=== PATIENT | male | born 1955 | race Caucasian/White ===

== ENCOUNTER 2017-01-11 07:07 | Outpatient (CLI) | payer MEDICARE ==
[~2017-01-11] VITALS: Ht 162.6 cm; Wt 75.5 kg
--- NOTE | ~2017-01-11 | HEMODYNAMI ---
PATIENT:JAMES FELTON MEDICAL RECORD: [id number] : 55 LOCATION:[facility] ADMISSION DATE: 01/11/17 Generatedon:01/11/201710:43 Patient name: JAMES FELTON Patient #: [id number] SSN: : 1955 Date of study: 01/11/2017 Page: Of Hemodynamic Procedure Report Patient Data Patient Demographics Procedure consent was obtained First Name: JAMES Gender: Male Last Name: PURNIMA : 1955 [facility] Initial: F Age: 61 year(s) Patient #: [id number] Race: Unknown Additional ID: [id number] Contact details Address: [address] [place] [address] lane State: [place] City: [place] Zip code: [address] Past Medical History Allergies: No known allergies Admission Admission Data Admission Date: 01/11/2017 Admission Time: 7:07 Admit Source: Other Lab Results Lab Result Date: 01/11/2017 Lab Result Time: 7:35 Biochemistry Name Units Result Min Max BUN mg/dl 17 --(---*)-- 7 18 Creatinine mg/dl 1.2 --(---*)-- 0.6 1.3 CBC Name Units Result Min Max Hematocrit % 48.1 --(--*-)-- 42 54 Hemoglobin g/dl 17 --(---*)-- 13.5 17.5 Procedure Procedure Types Cath Procedure Diagnostic Procedure C [facility] w/Coronaries PCI Procedure Coronary Stent Initial Miscellaneous Procedures Moderate Sedation up to 45 minutes Procedure Description Procedure Date Procedure Date: 01/11/2017 Procedure Start Time: 9:55 Procedure End Time: 10:43 Procedure Staff Name Function Titi Crowley MD Performing Physician Annalise Aguilar RT Scrub Danny Waldron RN Nurse Sukumar Julian RT Monitor Procedure Data Cath Procedure Fluoroscopy Diagnostic fluoroscopy Total fluoroscopy Time: time: 14.1 min 14.1 min Diagnostic fluoroscopy Total fluoroscopy dose: dose: 1450 mGy 1450 mGy Contrast Material Contrast Material Type Amount (ml) Isovue 300 166 Entry Location Entry Primary Successful Side Size Upsize Upsize Entry Closure Delaney ccessful Closure Location (Fr) 1 (Fr) 2 (Fr) Remarks Device Remarks Radial Right 6 Fr Mechanical artery Short Compression Estimated blood loss: 10 ml Diagnostic catheters Device Type Used For End Catheter Placement Terumo 5Fr Jose 110cm Procedure catheter Procedure Complications No complications Procedure Medications Medication Administration Route Dosage Oxygen NC 2 l/min Lidocaine 2% added to field 20 Heparin Flush Bag added to field 2 bags (1000units/500ml NS) 0.9% NaCl I.V. 100 ml/hr Versed I.V. 1 mg Fentanyl I.V. 50 mcg Versed I.V. 1 mg Fentanyl I.V. 50 mcg Radial Cocktail I.A. 1 syringe (Verapomil 2mg/Nitro 400mcg/Heparin 1500units) Fentanyl I.V. 50 mcg Heparin Bolus I.V. 7500 units Fentanyl I.V. 50 mcg Versed I.V. 0.5 mg Versed I.V. 0.5 mg Nitroglycerin IC/IA I.C. 100 mcg Plavix P.O. 600 mg Hemodynamics Rest HGB: 17 (g/dl) Heart Rate: 69 (bpm) Pressure Samples Time Site Value (mmHg) Purpose Heart Use Rate(bpm) 9:57 LV 108/-4,5 Snapshot 82 9:58 AO 103/66(84) Pullback 67 9:58 LV 112/-6,3 Pullback 67 Gradients Valve Time Site 1 Site 2 Mean SEP/DFP Peak To Heart Use (mmHg) (sec/min) Peak Rate (mmHg) (bpm) Aortic 9:58 LV AO 11 5 9 67 112/-6,3 103/66(84) Calculations Valve P-P Mean Valve Index Valve Source Name Gradient Area Flow (cm2) Aortic 9 11 9 11 Snapshots Pre Cath Intra NCS Post Cath Vital Signs Time Heart Resp SPO2 etCO2 II2qozr NIBP (mmHg) Rhythm Pain Sedation Rate (ipm) (%) (mmHg) (mmHg) Status Level (bpm) 9:48:42 72 14 95 0 0 115/82(106) NSR 0 (11) 10(A) , No pain 9:52:48 68 17 97 0 0 122/77(106) NSR 0 (11) 10(A) , No pain 9:56:57 67 15 98 0 0 112/75(96) NSR 0 (11) 10(A) , No pain 10:01:09 79 16 96 0 0 106/73(84) NSR 0 (11) 9(A) , No pain 10:05:11 75 16 97 0 0 115/76(98) NSR 0 (11) 9(A) , No pain 10:09:19 73 15 97 0 0 110/70(89) NSR 0 (11) 9(A) , No pain 10:13:27 72 15 98 0 0 103/63(81) NSR 0 (11) 9(A) , No pain 10:17:28 73 16 97 0 0 106/75(94) NSR 0 (11) 9(A) , No pain 10:21:34 73 16 97 0 0 112/65(96) NSR 0 (11) 9(A) , No pain 10:25:40 74 15 97 0 0 121/73(90) NSR 0 (11) 9(A) , No pain 10:29:50 73 15 97 0 0 115/70(98) NSR 0 (11) 9(A) , No pain 10:33:56 74 14 96 0 0 122/74(103) NSR 0 (11) 9(A) , No pain 10:38:01 72 16 95 0 0 109/83(102) NSR 0 (11) 9(A) , No pain 10:42:03 73 16 95 0 0 115/80(108) NSR 0 (11) 10(A) , No pain Medications Time Medication Route Dose Verified Delivered Reason Note s Effectiveness by by 9:42:21 Oxygen NC 2 l/min Titi Buffie used for Jose Waldron RN procedure 9:42:29 Lidocaine 2% added 20ml Titi Titi for local to vial Jose Crowley MD anesthetic field 9:42:36 Heparin Flush added 2 bags Titi Titi used for Bag to Jose Crowley MD procedure (1000units/500ml field NS) 9:42:44 0.9% NaCl I.V. 100 Titi Buffie Per physician ml/hr Jose Waldron RN 9:51:55 Versed I.V. 1 mg Titi Buffie for sedation Jose Waldron RN 9:52:01 Fentanyl I.V. 50 mcg Titi Buffie for sedation Jose Waldron RN 9:54:58 Versed I.V. 1 mg Titi Buffie for sedation Jose Waldron RN 9:55:02 Fentanyl I.V. 50 mcg Titi Buffie for sedation Jose Waldron RN 9:56:42 Radial Cocktail I.A. 1 Titi Titi for (Verapomil syringe Jose Crowley MD vasodilation 2mg/Nitro 400mcg/Heparin 1500units) 10:04:05 Fentanyl I.V. 50 mcg Titi Buffie for sedation Jose Waldron RN 10:04:50 Heparin Bolus I.V. 7500 Titi Buffie for veri fied units Jose Waldron RN anticoagulation with dr crowley 10:08:58 Fentanyl I.V. 50 mcg Titi Buffie for sedation Jose Waldron RN 10:18:29 Versed I.V. 0.5 mg Titi Buffie for sedation Jose Waldron RN 10:27:03 Versed I.V. 0.5 mg Titi Buffie for sedation Jose Waldron RN 10:35:36 Nitroglycerin I.C. 100 mcg Titi Titi for IC/IA Jose Crowley MD vasodilation 10:42:49 Plavix P.O. 600 mg Titi Buffie for Jose Waldron RN antiplatelet therapy Procedure Log Time Note 9:15:17 Danny Waldron RN sent for patient. Start room use. 9:34:31 Informed consent obtained and on chart 9:34:37 Admit Source: Other 9:35:14 Diagnostic Cath status Elective 9:35:22 Time tracking: Regular hours 9:35:27 Plan of Care:Hemodynamics will remain stable., Cardiac rhythm will remain stable., Comfort level will be maintained., Respiratory function will remain adequate., Patient/ family verbilizes understanding of procedure., Procedure tolerated without complication., Recovers from procedure without complications.. 9:35:48 Patient received from Pre/Post Procedure Room to CCL 1 Alert and oriented. Tansferred to table in Supine position. 9:35:49 Warm blankets applied, and yolanda hugger turned on for patient comfort. 9:35:50 Correct patient and procedure confirmed by team. 9:36:08 H&P Date Dictated: 01/05/2017 Within 30 days and on chart., H&P Addendum completed by physician on day of procedure. (MUST COMPLETE FOR ALL OUTPATIENTS). 9:42:21 Oxygen 2 l/min NC was administered by Danny Waldron RN; used for procedure; 9:42:29 Lidocaine 2% 20ml vial added to field was administered by Titi Crowley MD; for local anesthetic; 9:42:36 Heparin Flush Bag (1000units/500ml NS) 2 bags added to field was administered by Titi Crowley MD; used for procedure; 9:42:44 0.9% NaCl 100 ml/hr I.V. was administered by Danny Waldron RN; Per physician; 9:47:37 ECG and BP/O2 sat monitors applied to patient. 9:47:38 Vital chart was started 9:47:42 Baseline sample Acquired. 9:47:47 Rhythm: sinus rhythm 9:47:49 Full Disclosure recording started 9:47:50 Pre-procedure instructions explained to patient. 9:47:50 Pre-op teaching completed and patient verbalized understanding. 9:47:52 Family in patients room. 9:47:54 Patient NPO since Midnight. 9:48:00 Patient allergic to No known allergies 9:48:02 Is the patient allergic to Iodine/contrast media? No. 9:48:03 Is patient on blood thinner?No 9:48:04 Patient diabetic? No. 9:48:07 Previous problem with sedation/anesthesia? No ? 9:48:08 Snore? Yes 9:48:10 Sleep apnea? No 9:48:11 Deviated septum? No 9:48:12 Opens mouth fully? Yes 9:48:13 Sticks out tongue? Yes 9:48:16 Airway obstruction? Yes copd 9:48:22 Dentures? Yes out 9:48:25 Modified Wiley's test Ulnar < 7 seconds 9:48:27 Patient pain scale 0/10 ?. 9:48:39 IV patent on arrival in left wrist with 0.9% NaCl at [facility]. 9:49:49 Lab Result : BUN 17 mg/dl 9:49:49 Lab Result : Hemoglobin 17 g/dl 9:49:49 Lab Result : Creatinine 1.2 mg/dl 9:49:49 Lab Result : Hematocrit 48.1 % 9:49:52 Lab results completed and on chart. 9:49:54 Right Radial & Right Groin area was prepped with chlora-prep and draped in sterile fashion 9:49:55 Alarms reviewed by R. N. 9:49:56 Sharps counted by scrub and verified by R.N. 9:49:59 Use device set Radial Dx 9:50:00 MBrace Wrist Support opened to sterile field. 9:50:00 Tegaderm 4 x 4 opened to sterile field. 9:50:01 Acist Manifold opened to sterile field. 9:50:02 Acist Hand Control opened to sterile field. 9:50:03 Acist Syringe opened to sterile field. 9:50:03 Medline Cath Pack opened to sterile field. 9:50:04 Bag Decanter opened to sterile field. 9:50:04 Terumo 6Fr Slender Glidesheath opened to sterile field. 9:50:05 St Tyrel 260cm J .035 wire opened to sterile field. 9:50:11 Physician arrived 9:50:11 --------ALL STOP TIME OUT------ 9:50:12 Final Timeout: patient, procedure, and site verified with staff and physician. All members of the team are in agreement. 9:50:13 Right Radial & Right Groin site verified by team. 9:50:16 Physical assessment completed. ASA score P 2 - A patient with mild systemic disease as per Titi Crowley MD. 9:50:18 Sedation plan: IV Moderate Sedation Versed, Fentanyl 9:51:55 Versed 1 mg I.V. was administered by Danny Waldron RN; for sedation; 9:52:01 Fentanyl 50 mcg I.V. was administered by Danny Waldron RN; for sedation; 9:52:34 Cook 21G 4cm Radial Needle opened to sterile field. 9:54:58 Versed 1 mg I.V. was administered by Danny Waldron RN; for sedation; 9:55:02 Fentanyl 50 mcg I.V. was administered by Danny Waldron RN; for sedation; 9:55:35 Procedure started. 9:55:48 Local anesthetic to right radial artery with Lidocaine 2% by Titi Crowley MD.INITIAL ACCESS ONLY 9:56:31 A 6 Fr Short sheath was inserted into the Right Radial artery 9:56:33 Zero performed for pressure channel P1 9:56:36 Zero performed for pressure channel P1 9:56:42 Radial Cocktail (Verapomil 2mg/Nitro 400mcg/Heparin 1500units) 1 syringe I.A. was administered by Titi Crowley MD; for vasodilation; 9:57:00 A Terumo 5Fr Jose 110cm catheter was advanced over the wire and used for Procedure. 9:57:46 LV gram done using REYES 9:57:48 Injector settings: Ml/sec: 5, Volume: 15, 9:57:54 EF : 55 % 9:58:31 LV hemodynamics recorded. 9:58:50 RCA angiography performed. 9:59:45 LCA angiography performed. 10:00:26 Terumo TR Band Standard opened to sterile field. 10:01:28 Catheter removed. 10:01:48 Merit BasixCompak Inflation Kit opened to sterile field. 10:01:49 High Pressure Extension Tubing (Joes) opened to sterile field. 10:01:49 [place] Sci Luge Straight 300cm 0.014 guide wire opened to sterile field. 10:01:50 Medtronic Launcher 6Fr AR 1.0 guide catheter opened to sterile field. 10:01:58 6 Fr AR 1 guide catheter was inserted over the wire 10:04:05 Fentanyl 50 mcg I.V. was administered by Danny Waldron RN; for sedation; 10:04:47 luge wire advanced. 10:04:50 Heparin Bolus 7500 units I.V. was administered by Danny Waldron RN; for anticoagulation; verified with dr crowley 10:08:58 Fentanyl 50 mcg I.V. was administered by Danny Waldron RN; for sedation; 10:13:04 Wire advanced across lesion. 10:16:25 Wire removed. 10:16:33 Guide Catheter removed. unable to get back-up support 10:16:49 Medtronic Launcher 6Fr 3DRIGHT guide catheter opened to sterile field. 10:17:02 6 Fr 3D RIGHT guide catheter was inserted over the wire 10:18:29 Versed 0.5 mg I.V. was administered by Danny Waldron RN; for sedation; 10:20:29 [place] Sci Luge Straight 300cm 0.014 guide wire opened to sterile field. 10:20:36 luge wire advanced. 10:21:28 Wire advanced across lesion. 10:23:39 Inflation Number: 1 A Medtronic Integrity 2.5 X 18 stent was prepped and advanced across the Dist RCA. The stent was deployed at 14 ALEXYS for 0:10 (min:sec). 10:25:48 Stent catheter was removed intact over wire. 10:27:03 Versed 0.5 mg I.V. was administered by Danny Waldron RN; for sedation; 10:33:52 Inflation Number: 1 A Medtronic Integrity 3.0 X 26 stent was prepped and advanced across the Mid RCA. The stent was deployed at 12 ALEXYS for 0:10 (min:sec). 10:35:36 Nitroglycerin IC/IA 100 mcg I.C. was administered by Titi Crowley MD; for vasodilation; 10:38:10 Stent catheter was removed intact over wire. 10:38:11 Wire removed. 10:38:11 Guide catheter removed. 10:39:09 Sheath removed intact; hemostasis achieved with Mechanical Compression to the Right Radial artery. 10:39:11 Procedure ended.(Physican Out) 10:40:48 Fluoroscopy time 14.10 minutes. 10:40:55 Contrast amount:Isovue 300 166ml. 10:40:59 Fluoroscopy dose: 1450 mGy 10:40:59 Flurop Dose total: 1450 10:41:01 Sharps counted by scrub and verified by R.N. 10:41:03 TR band inflated with 10cc of air. 10:41:05 Insertion/operative site no bleeding no hematoma. 10:41:13 Post right radial artery:stable, soft, clean and dry 10:41:14 Post Procedure Pulses reassessed and unchanged 10:41:16 Post-procedure physical assessment completed. ASA score P 2 - A patient with mild systemic disease as per Titi Crowley MD. 10:41:18 Post procedure rhythm: unchanged. 10:41:23 Estimated blood loss: 10 ml 10:41:24 Post procedure instruction explained to patient.Patient verbalizes understanding. 10:41:43 Procedure type changed to Cath procedure, Diagnostic procedure, LHC, LHC w/Coronaries, PCI procedure, Coronary Stent Initial, Miscellaneous Procedures, Moderate Sedation up to 45 minutes 10:42:49 Plavix 600 mg P.O. was administered by Dnany Waldron RN; for antiplatelet therapy; 10:43:12 Procedure and supply charges have been captured, reviewed, submitted and are correct. 10:43:14 Procedure Complication : No complications 10:43:16 Vital chart was stopped 10:43:16 See physician's report for complete and final results. 10:43:18 Report given to Pre/Post Procedure Room. 10:43:21 Patient transfered to Pre/Post Procedure Room with Stretcher. 10:43:22 Procedure ended. 10:43:22 Full Disclosure recording stopped 10:43:26 End room use (Document Last) Intervention Summary Intervention Notes Time ActionType Lesion and Equipment Action# Pressure Duration Attributes Used 10:23:39 Place stent Dist RCA Medtronic 1 14 00:10 Integrity 2.5 X 18 stent 10:33:52 Place stent Mid RCA Medtronic 1 12 00:10 Integrity 3.0 X 26 stent Device Usage Item Name Manufacture Quantity Catalog Hospital Part Current Minima l Lot# / Number Charge Number Stock Stock Serial# Code [facility] 1 140-0250-00 [id number] 03221 009275 5 Wrist Vascular Support Dynamics Tegaderm 4 3M 1 [id number] [id number] 201523 220617 5 x 4 Acist Acist 1 71977 982184 335799 262242 5 Manifold Medical Systems Inc Acist Hand Acist 1 12761 819946 008625 919966 5 Control Medical Systems Inc Acist Acist 1 98165 493125 515219 886190 20 Syringe Medical Systems Inc Medline Cardinal 1 [id number] 394151 86810 887656 5 Cath Pack Health Bag Microtek 1 2002S 403104 20024 416884 5 [employer]. Terumo 6Fr Terumo 1 [id number] 842782 867357 220746 [address] Tyrel St Tyrel 1 867069 306200 517419 076938 30 260cm J .035 wire Cook 21G Cook Medical 1 [id number] 578490 140233 623319 5 4cm Radial Needle Terumo 5Fr Terumo 1 40-7506 970512 255956 314108 5 Jose 110cm catheter Terumo TR Terumo 1 [id number] 917208 732400 193374 40 Band Standard Merit Merit 1 [id number] 364433 443061 512591 15 BasixS[employer] Medical Inflation Kit High Merit 1 [id number] 897290 92402 828338 10 Pressure Medical Extension Tubing (Crowley) [place] Sci Mattituck 2 [id number] 023996 632752 446747 5 Atmocean Scientific Straight 300cm 0.014 guide wire Medtronic Medtronic 1 [id number] 871762 18272 060168 1 Launcher 6Fr AR 1.0 guide catheter Medtronic Medtronic 1 [id number] 019236 526340 411209 1 Launcher 6Fr 3DRIGHT guide catheter Medtronic Medtronic 1 [id number] 938195 569906 8 [id number] Integrity 2.5 X 18 stent Medtronic Medtronic 1 [id number] 328469 124555 8 [id number] Integrity 3.0 X 26 stent Signature Audit [place] Stage Time Signature Unsigned Intra-Procedure 01/11/2017 Sukumar Julian 10:43:51 AM RT(R) Signatures Monitor : Sukumar Julian RT Signature : Date : Time : [address] [place] [address]
[~2017-01-11 07:07] MED LIST: ASPIRIN81 MG PO; CARDURA4 MG PO; DILAUDID2 MG PO; K-TAB10 MEQ PO; LASIX20 MG PO; LIDODERM 5 %1 PATCH TD; MILK OF MAGNESI30 ML PO; MIRALAX17 GM PO; NEURONTIN 400400 MG PO; NEURONTIN600 MG PO; NEXIUM40 MG PO; NITRO-BID60 GM TP; REQUIP XL2 MG PO; ROBAXIN500 MG PO; SAVELLA100 MG PO; SAVELLA50 MG PO; SPIRIVA18 MCG INH; TYLENOL325 MG PO; VITAMIN B-1000 MCG/M IM
[2017-01-11] MEDS ORDERED: LIPITOR20 MG PO (07:44)
[2017-01-11] MEDS ORDERED: DYAZIDE 37.5/251 CAP PO (07:45)
[2017-01-11] MEDS ORDERED: HYDROCODONE-APA1 TAB PO (07:45)
[2017-01-11 07:46] LABS: BASOPHILS 0.2 % (0-2); EOSINOPHILS 3.3 % (0-7); HEMATOCRIT 48.1 % (42.0-54.0); IMMATURE GRANULOCYTES 0.4 % (0-5); LYMPHOCYTES 27.4 % (15-50); MCHC 35.3 g/dL (31.0-37.0); MCV 93.4 fL (80.0-100.0); MEAN PLATELET VOLUME 9.4 fL (7.4-10.4); MONOCYTES 9.4 % (2-11); NEUTROPHILS 59.3 % (40-80); PLATELET COUNT 310 10x3/uL (130-400); RBC 5.15 10x6/uL (4.20-6.10); RDW 11.9 % (11.5-14.5); WBC 11.3 10x3/uL (4.8-10.8)
[2017-01-11] MEDS ORDERED: CYCLOBENZAPRINE10 MG PO (07:46)
[2017-01-11] MEDS ORDERED: DICLOFENAC SODI50 MG PO (07:47)
[2017-01-11] MEDS ORDERED: BUSPAR 15 MG TA15 MG PO (07:47)
[2017-01-11 07:51] LABS: ANION GAP 12.2 mmol/L (8-16); CALCIUM 9.1 mg/dL (8.5-10.1); CARBON DIOXIDE 31.4 mmol/L (21.0-32.0); CREATININE - SERUM 1.2 mg/dL (0.6-1.3); POTASSIUM - SERUM 3.6 mmol/L (3.5-5.1)
[2017-01-11 07:57] VITALS: BP 132/92; Ht 162.6 cm; Wt 75.5 kg
--- NOTE | 2017-01-11 11:04 | NUR ---
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 PT SLEEPING AND AWAKENS TO VERBAL STIMULI. VSS, DENIES ANY C/O CHEST PAIN. TR BAND IS CDI, AREA FREE FROM BLEEDING OR HEMATOMA. FINGERS WARM AND CAP REFILL IS BRISK. FAMILY AT BEDSIDE, CALL LIGHT IN REACH.
--- NOTE | 2017-01-11 11:16 | NUR ---
1115 PT SLEEPING, AWAKENS TO VERBAL STIMULI. DENIES ANY C/O. VSS, RR EVEN AND UNLABORED. CALL LIGHT IN REACH, WILL CONTINUE TO MONITOR. NO FAMILY AT BEDSIDE.
--- NOTE | 2017-01-11 11:28 | NUR ---
TR BAND R/WRIST CDI NO BLEEDING NO HEMATOMA NOTED. VSS WITH CHEST PAIN DENIED.
[2017-01-11] MEDS ORDERED: PLAVIX75 MG PO (11:52)
--- NOTE | 2017-01-11 12:12 | NUR ---
1210 PT HAS HAD EMESIS X1, ZOFRAN 4 MG IV PER ORDERS. DENIES ANY OTHER C/O. IMMEDIATELY BACK TO SLEEP AFTER EMESIS. VSS, TR BAND CDI, NO BLEEDING OR HEMATOMA NOTED. CALL LIGHT IN REACH, NO FAMILY AT BEDSIDE. WILL CONTINUE TO MONITOR.
--- NOTE | 2017-01-11 12:53 | NUR ---
1240 PT DENIES ANY C/O. TR BAND CDI, NO BLEEDING OR HEMATOMA NOTED. VSS, RR EVEN AND UNLABORED. NO FAMILY AT BEDSIDE, CALL LIGHT IS IN REACH.
--- NOTE | 2017-01-11 13:47 | NUR ---
1330 PT C/O NECK AND BACK PAIN, STATES CHRONIC PAIN FOR HIM, RATES A 11/18. ORDER OBTAINED FOR NORCO 10MG. 1345 PT HAS RECEIVED NORCO 10MG ONE TAB FOR C\O NECK AND BACK PAIN.
--- NOTE | 2017-01-11 15:09 | NUR ---
1435 PT STATES PAIN DECREASED WITH PO PAIN MED, RATES A 4. DENIES ANY C/O CHEST DISCOMFORT OR NAUSEA. NO BLEEDING NOTED AT CATH SITE. FAMILY AT BEDSIDE.
--- NOTE | 2017-01-11 15:55 | NUR ---
1530 TR BAND DEFLATION COMPLETE WITH NO BLEEDING OR HEMATOMA AT SITE. 2X2 AND TEGADERM PLACED TO SITE. IV DC'D WITH CATH INTACT. DC INSTRUCTIONS REVIEWED WITH PT AND WHO VERBALIZE UNDERSTANDING. PT DRESSING FOR DC TO HOME. 1550 PT DRESSED FOR DC. DRESSING TO CATH SITE REMAINS CDI. PT DENIES ANY C/O UPON DC. PT ESCORTED TO PRIVATE AUTO VIA WC BY STAFF WITH DRIVING HIM HOME.
== END 2017-01-11 15:50 | disposition home or self-care (01) ==
LOC: D.CATH 07:07
PROVIDERS: Internal Medicine Cardiovascular Disease
DX: I20.9 Angina pectoris, unspecified (principal); E78.5 Hyperlipidemia, unspecified; I10 Essential (primary) hypertension; Z82.49 Family history of ischemic heart disease and other diseases of the circulatory system; Z01.812 Encounter for preprocedural laboratory examination; F17.200 Nicotine dependence, unspecified, uncomplicated

== ENCOUNTER 2017-12-17 16:18 | Observation (INO) | payer MEDICARE ==
[~2017-12-17] VITALS: Ht 162.6 cm; Wt 66.9 kg
--- NOTE | ~2017-12-17 | EC ---
PATIENT:JAMES FELTON DATE OF SERVICE: 12/17/17 SEX: M MEDICAL RECORD: [id number] DATE OF : 55 LOCATION:D.M2 D.213 AGE OF PATIENT: 62 ADMISSION DATE: 12/17/17 REFERRING PHYSICIAN: INTERPRETING PHYSICIAN: CEE MORSE MD ECHOCARDIOGRAM REPORT ECHO CHARGES 4 ECHO COMPLETE Date: 12/18 CLINICAL DIAGNOSIS: CHEST PAIN ECHOCARDIOGRAPHIC MEASUREMENTS (adult normal given) AC root (d.<3.7cm) 4.3 cm LV Septum d (<1.2 cm> 1.3 cm Valve Excursion 2.0 cm LV Septum (systole) 1.4 cm Left Atria (s.<4.0cm> 3.6 cm LVPW d(<1.2cm) 1.4 cm RV (d.<2.3cm) 3.7 cm LVPW (sytole) 1.6 cm LV diastole(<5.6CM) 4.5 cm MV E-F(>70mm/sec) cm LV systole 2.7 cm LVOT Diameter 1.7 cm MV exc.(>10mm) 1.3 cm Est.ejection fraction (50-75%) % DOPPLER: LVIT cm/sec A 95.0 cm/sec E 81.0 cm/sec LA cm/sec RVSP 18 mmHg LVOT 111 cm/sec AOP1/2T m/s Asc. Ao 132 cm/sec RVOT 83 cm/sec RA cm/sec PA 103 cm/sec AV Gradient Peak 6.95 mmHg AV Mean 3.97 mmHg AV Area 2.2 cm MV Gradient Peak 5.05 mmHg MV Mean 1.84 mmHg MV Area cm COMMENTS: Recreational Vehicle Resort Manager: Ezequiel ZAMUDIO Junior Systems Administrator: 4 Dr. Morse TAPE# PACS Pericardial Effusion N DATE OF SERVICE: PROCEDURE: Transthoracic echocardiogram. FINDINGS: 1. Left ventricle has ejection fraction of 65%. There is left ventricular hypertrophy. Inflow characteristics are consistent with diastolic dysfunction. 2. The left atrium is normal size, shape, structure and function. 3. The aortic valve is normal. 4. The mitral valve is normal. ECHOCARDIOGRAM REPORT [id number] JAMES FELTON 5. The tricuspid valve is normal. 6. The right ventricle is normal. 7. The right atrium is normal. 8. The pulmonic valve is normal. CONCLUSIONS: The patient has evidence of hypertensive heart disease, otherwise normal echocardiogram for patient's stated age. TRANSINT:[id number] Voice Confirmation ID: [id number] DOCUMENT ID: [id number] CEE MORSE MD at 0956 CC: [id number] DICTATION DATE: 12/19/17 09 DIVING FISHER: 12/19/17 1040 DIS IN 12/18/17 [place] [id number] [place] [id number]
--- NOTE | ~2017-12-17 | HEMODYNAMI ---
PATIENT:JAMES FELTON MEDICAL RECORD: [id number] : 55 [facility] [id number] ADMISSION DATE: 12/17/17 Generatedon:12/18/20178:28 Patient name: JAMES FELTON Patient #: [id number] SSN: : 1955 Date of study: 12/18/2017 Page: Of Hemodynamic Procedure Report Patient Data Patient Demographics Procedure consent was obtained First Name: JAMES Gender: Male Last Name: PURNIMA : 1955 Middle Initial: F Age: 62 year(s) Patient #: [id number] Race: Unknown Additional ID: [id number] Contact details [address]: [address] [place] [address] [place] State: [place] City: [place] Zip code: [address] Past Medical History Allergies: No known allergies Admission Admission Data Admission Date: 12/17/2017 Admission Time: 18:51 Room #: D2132 Procedure Procedure Types Cath Procedure Diagnostic Procedure LHC LHC w/Coronaries Procedure Description Procedure Date Procedure Date: 12/18/2017 Procedure Start Time: 8:15 Procedure End Time: 8:27 Procedure Staff Name Function Conrad York MD Performing Physician Sayda Simental RT Monitor Marvel Kaye RN Nurse Tg Woodward RT Scrub Trent Tello RN Grading Supervisor Procedure Data Cath Procedure Fluoroscopy Diagnostic fluoroscopy Total fluoroscopy Time: 1.6 time: 1.6 min min Diagnostic fluoroscopy Total fluoroscopy dose: 217 dose: 217 mGy mGy Contrast Material Contrast Material Type Amount (ml) Isovue 300 23 Isovue 300 25 Entry Location Entry Primary Successful Side Size Upsize Upsize Entry Closure Succes sful Closure Location (Fr) 1 (Fr) 2 (Fr) Remarks Device Remarks Femoral Right 5 Fr Exoseal artery Estimated blood loss: 5 ml Diagnostic catheters Device Type Used For End Catheter Placement MULTIPACK JL 4.0 5Fr Left Coronary catheter Angiography MULTIPACK 3DRC 5Fr Right Coronary catheter Angiography MULTIPACK Pigtail 5 Fr LV Angiography catheter Procedure Complications No complications Procedure Medications Medication Administration Route Dosage 0.9% NaCl I.V. 100 ml/hr Oxygen etCO2 Nasal cannula 2 l/min Heparin Flush Bag added to field 2 bags (1000units/500ml NS) Lidocaine 2% added to field 20 Versed I.V. 2 mg Fentanyl I.V. 50 mcg Hemodynamics Rest Heart Rate: 60 (bpm) Pressure Samples Time Site Value (mmHg) Purpose Heart Use Rate(bpm) 8:23 LV 129/-8,13 EDP 66 8:23 AO 133/71(97) Pullback 64 8:23 LV 117/15,30 Pullback 64 Gradients Valve Time Site 1 Site 2 Mean SEP/DFP Peak To Heart Use (mmHg) (sec/min) Peak Rate (mmHg) (bpm) Aortic 8:23 LV AO 0 3 0 64 117/15,30 133/71(97) Calculations Valve P-P Mean Valve Index Valve Source Name Gradient Area Flow (cm2) Aortic 0 0 0 0 Snapshots Pre Cath Intra NCS Post Cath Vital Signs Time Heart Resp SPO2 etCO2 NIBP (mmHg) Rhythm Pain Sedation Rate (ipm) (%) (mmHg) Status Level (bpm) 8:04:14 63 18 100 9.8 119/73(93) NSR 0 (11) 10(A) , No pain 8:08:51 64 16 99 29.4 103/68(81) NSR 0 (11) 10(A) , No pain 8:13:28 65 25 98 20.3 109/66(83) NSR 0 (11) 10(A) , No pain 8:18:06 66 15 97 30.9 106/59(73) NSR 0 (11) 9(A) , No pain 8:23:17 64 16 98 18.8 121/70(104) NSR 0 (11) 9(A) , No pain 8:27:54 65 17 98 27.9 111/70(90) NSR 0 (11) 9(A) , No pain Medications Time Medication Route Dose Verified Delivered Reason Notes Effe ctiveness by by 8:03:46 0.9% NaCl I.V. 100 Marvel Marvel Per ml/hr Mikki Kaye physician RN RN 8:03:58 Oxygen etCO2 2 Marvel Marvel Per Nasal l/min Mikki Kaye physician cannula RN RN 8:04:41 Heparin Flush added 2 Marvel Marvel used for Bag to bags Lorigan Lorigan procedure (1000units/500ml field RN RN NS) 8:04:53 Lidocaine 2% added 20ml Marvel Marvel for local to vial Lorigan Lorigan anesthetic field RN RN 8:11:28 Versed I.V. 2 mg Marvel Marvel for Lorigan Lorigan sedation RN RN 8:11:45 Fentanyl I.V. 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 7:33:31 Trent Tello RN sent for patient. Start room use. 7:53:02 Patient received from PCU to CCL 1 Alert and oriented. Tansferred to table in Supine position. 7:53:03 Warm blankets applied, and yolanda hugger turned on for patient comfort. 7:53:03 Correct patient and procedure confirmed by team. 7:53:05 Signed procedure consent form obtained from patient. 7:53:06 ECG and BP/O2 sat monitors applied to patient. 7:53:07 Full Disclosure recording started 8:03:23 Vital chart was started 8:03:26 Rhythm: sinus rhythm 8:03:39 H&P Date Dictated: 12/17/2017 Within 30 days and on chart.. 8:03:41 Pre-procedure instructions explained to patient. 8:03:41 Pre-op teaching completed and patient verbalized understanding. 8:03:42 Family in waiting room. 8:03:46 0.9% NaCl 100 ml/hr I.V. was administered by Marvel Kaye RN; Per physician; 8:03:46 Patient NPO since Midnight. 8:03:53 Patient allergic to No known allergies 8:03:55 Is the patient allergic to Iodine/contrast media? No. 8:03:58 Oxygen 2 l/min etCO2 Nasal cannula was administered by Marvel Kaye RN; Per physician; 8:03:58 Is patient on blood thinner?Yes 8:04:03 ACC The patient was administered the following blood thiners within the last 24 hours: ACCPlavix 8:04:15 Patient diabetic? No. 8:04:19 Previous problem with sedation/anesthesia? No ? 8:04:41 Heparin Flush Bag (1000units/500ml NS) 2 bags added to field was administered by Marvel Kaye RN; used for procedure; 8:04:53 Lidocaine 2% 20ml vial added to field was administered by Marvel Kaye RN; for local anesthetic; 8:04:56 Snore? Yes 8:04:57 Sleep apnea? No 8:04:59 Deviated septum? No 8:05:00 Opens mouth fully? Yes 8:05:02 Sticks out tongue? Yes 8:05:10 Airway obstruction? No ? 8:05:17 Dentures? Yes lost teeth 8:05:34 Pre procedure: right dorsailis pedis pulse 1+ Palpable, but thready & weak; easily obliterated 8:05:41 Pre procedure: right radial pulse 0-Absent 8:05:44 Patient pain scale 0/10 ?. 8:05:50 IV patent on arrival in right forearm with 0.9% NaCl at O. 8:05:53 Lab results completed and on chart. 8:06:00 Right groin area was prepped with chlora-prep and draped in sterile fashion 8:06:01 Alarms reviewed by R. N. 8:06:02 Sharps counted by scrub and verified by R.N. 8:06:17 Use device set Femoral Dx 8:06:18 ACIST Syringe (45876) opened to sterile field. 8:06:19 Bag Decanter () opened to sterile field. 8:06:20 Medline Cath Pack ([id number]) opened to sterile field. 8:06:22 ACIST Hand Control (64357) opened to sterile field. 8:06:22 ACIST Manifold (81414) opened to sterile field. 8:06:23 DIAGNOSTIC Multipack 5Fr catheter set ([id number]) opened to sterile field. 8:06:24 Tegaderm 4 x 4 (1626W) opened to sterile field. 8:06:25 SHEATH Prelude 5Fr 0.035 ([id number]) opened to sterile field. 8:06:27 MICROPUNCTURE 4FR Cook ([id number]) opened to sterile field. 8:09:08 Physician paged 8::29 Zero performed for pressure channel P1 8::58 Baseline sample Acquired. 8::29 Final Timeout: patient, procedure, and site verified with staff and physician. All members of the team are in agreement. 8:10:31 Right groin site verified by team. 8:10:34 Physical assessment completed. ASA score P 2 - A patient with mild systemic disease as per Conrad York MD. 8:10:37 Sedation plan: IV Moderate Sedation Medication:Versed, Fentanyl 8:11:28 Versed 2 mg I.V. was administered by Marvel Kaye RN; for sedation; 8:11:45 Fentanyl 50 mcg I.V. was administered by Marvel Kaye RN; for sedation; 8:15:06 Local anesthetic to right femoral artery with Lidocaine 2% by Conrad York MD.INITIAL ACCESS ONLY 8:16:33 Access obtained with 4Fr micropunture. 8:16:36 A 5 Fr sheath was inserted into the Right Femoral artery 8:16:56 DIAGNOSTIC WIRE .035 260cm J wire ([id number]) opened to sterile field. 8:17:38 A MULTIPACK JL 4.0 5Fr catheter was advanced over the wire and used for Left Coronary Angiography. 8:18:56 Catheter removed. 8:20:14 A MULTIPACK 3DRC 5Fr catheter was advanced over the wire and used for Right Coronary Angiography. 8:20:58 Catheter removed. 8:21:19 A MULTIPACK Pigtail 5 Fr catheter was advanced over the wire and used for LV Angiography. 8:23:24 LV gram done using REYES 8:23:25 LV hemodynamics recorded. 8:23:28 Injector settings: Ml/sec: 10, Volume: 20, 8:23:47 Catheter removed. 8:23:56 Sheath removed intact; hemostasis achieved with Exoseal to the Right Femoral artery. 8:23:58 Procedure ended.(Physican Out) 8:24:10 Fluoroscopy time 01.60 minutes. 8:24:13 Fluoroscopy dose: 217 mGy 8:24:13 Flurop Dose total: 217 8:25:20 Contrast amount:Isovue 300 23ml. 8:25:37 Sharps counted by scrub and verified by Sissy.N. 8:25:39 Insertion/operative site no bleeding no hematoma. 8:25:43 Post-op/insertion site Right Femoral artery dressed using a 4 x 4 and Tegaderm. 8:25:46 Post right femoral artery:stable, clean and dry 8:25:48 Post Procedure Pulses reassessed and unchanged 8:25:51 Post procedure: right dorsailis pedis pulse 2+ Normal; easily identifiable; not easily obliterated. 8:25:54 Post-procedure physical assessment completed. ASA score P 2 - A patient with mild systemic disease as per Conrad York MD. 8:25:59 Post procedure rhythm: unchanged. 8:26:02 Estimated blood loss: 5 ml 8:26:03 Post procedure instruction explained to patient.Patient verbalizes understanding. 8:26:04 Patient needs reinforcement of post procedure teaching. 8:26:34 Procedure Complication : No complications 8:26:36 See physician's report for complete and final results. 8:26:51 EXOSEAL 5Fr (EX500) opened to sterile field. 8:27:05 Contrast amount:Isovue 300 25ml. 8:27:26 Procedure and supply charges have been captured, reviewed, submitted and are correct. 8:27:36 Vital chart was stopped 8:27:41 Report given to PCU. 8:27:45 Patient transfered to PCU with Bed. 8:27:53 Procedure ended. 8:27:53 Full Disclosure recording stopped 8:27:56 End room use (Document Last) Device Usage Item Name Manufacture Quantity Catalog Number Hospital Part Current M inimal Lot# / Charge Number Stock Stock Serial# Code ACIST Syringe Acist 1 74820 194925 780343 [id number] 2 0 (97443) [employer] Bag Decanter Microtek 1 147735 65895 138680 5 () [employer] Inc[employer] Medline Cath Cardinal 1 [id number] 881103 80487 995193 5 Pack Health ([id number]) ACIST Hand Acist 1 72871 408589 899289 040364 5 Control (92165) [employer] ACIST Manifold Acist 1 68066 440998 978446 391628 5 (27909) [employer] DIAGNOSTIC Cardinal 1 [id number] 737135 91911 970789 3 0 Multipack 5Fr Health catheter set ([id number]) Tegaderm 4 x 4 3M 1 1626W 309477 349638 676685 5 (1626W) SHEATH Prelude Merit 1 [id number] 568492 718517 257592 5 5Fr 0.035 Medical ([id number]) MICROPUNCTURE Cook Medical 1 [id number] 046409 732790 444412 5 4FR Cook ([id number]) DIAGNOSTIC WIRE St Tyrel 1 254728 834686 962312 913767 3 0 .035 260cm J wire (584971) MULTIPACK JL Cardinal 1 476298 5 4.0 5Fr Health catheter MULTIPACK 3DRC Cardinal 1 [id number] 5 5Fr catheter Health MULTIPACK Cardinal 1 074220 5 Pigtail 5 Fr Health catheter EXOSEAL 5Fr Cardinal 1 EX500 595292 042405 974109 1 0 (EX500) Health Signature Audit [place] Stage Time Signature Unsigned Intra-Procedure 12/18/2017 Sayda 8:28:11 AM Counts RT(R) Signatures Monitor : Sayda Signature : Counts RT Date : Time : [address] [place] [address]
[~2017-12-17 16:18] MED LIST changes: +BUSPAR 15 MG TA15 MG PO; +CYCLOBENZAPRINE10 MG PO; +DICLOFENAC SODI50 MG PO; +DYAZIDE 37.5/251 CAP PO; +HYDROCODONE-APA1 TAB PO; +LIPITOR20 MG PO; +PLAVIX75 MG PO
[2017-12-17 16:56] VITALS: BP 99/78
[2017-12-17 17:01] LABS: BASOPHILS 0.2 % (0-2); EOSINOPHILS 3.1 % (0-7); HEMATOCRIT 43.6 % (42.0-54.0); HEMOGLOBIN 15.3 g/dL (13.5-17.5); IMMATURE GRANULOCYTES 0.3 % (0-5); MCH 32.1 pg (26.0-34.0); MCHC 35.1 g/dL (31.0-37.0); MCV 91.6 fL (80.0-100.0); MEAN PLATELET VOLUME 9.1 fL (7.4-10.4); MONOCYTES 8.6 % (2-11); NEUTROPHILS 46.8 % (40-80); PLATELET COUNT 284 10x3/uL (130-400); RBC 4.76 10x6/uL (4.20-6.10); RDW 13.3 % (11.5-14.5); WBC 9.6 10x3/uL (4.8-10.8)
[2017-12-17 17:09] LABS: APTT 21.9 SECONDS (22.8-39.4); INR 0.95 (0.85-1.17); PROTIME 12.3 SECONDS (11.6-15.0)
[2017-12-17 17:10] LABS: D-DIMER-QUANTITATIVE 0.34 ug/mLFEU (0.20-0.54)
[2017-12-17 17:13] LABS: ALBUMIN 3.4 g/dL (3.4-5.0); ALKALINE PHOSPHATASE 71 U/L (46-116); ALT (SGPT) 26 U/L (10-68); CALC OSMOLALITY 276 mosm/kg (275-300); CALCIUM 9.7 mg/dL (8.5-10.1); CARBON DIOXIDE 28.2 mmol/L (21.0-32.0); CHLORIDE - SERUM 104 mmol/L (98-107); CREATININE - SERUM 1.1 mg/dL (0.6-1.3); GLUCOSE 76 mg/dL (74-106); POTASSIUM - SERUM 4.5 mmol/L (3.5-5.1); PROTEIN - SERUM 7.3 g/dL (6.4-8.2); SODIUM 139 mmol/L (136-145); UREA NITROGEN 13 mg/dL (7-18); eGFR NON AFRICAN AMERICAN 72 mL/min (90-120)
[2017-12-17 17:14] VITALS: BP 107/69
[2017-12-17 17:28] LABS: CKMB 2.7 U/L (0.0-3.6); CREATINE KINASE 172 UL (21-232); PRO BNP 192 pg/mL (0-125)
[2017-12-17 17:39] LABS: TROPONIN-I < 0.017 ng/mL (0.000-0.060)
[2017-12-17 17:45] VITALS: BP 99/62
[2017-12-17 17:57] LABS: MAGNESIUM - SERUM 1.5 mg/dL (1.8-2.4); THYROID STIMULATING HORMONE 2.6 uIU/mL (0.36-3.74)
[2017-12-17 18:15] VITALS: BP 107/70
[2017-12-17 19:08] VITALS: BP 115/88
[2017-12-17 19:35] LABS: APPEARANCE CLEAR (CLEAR); BILIRUBIN NEGATIVE (NEGATIVE); COLOR YELLOW (YELLOW); GLUCOSE NEGATIVE (NEGATIVE); KETONE NEGATIVE (NEGATIVE); NITRITE NEGATIVE (NEGATIVE); PROTEIN NEGATIVE (NEGATIVE); UROBILINOGEN NORMAL (NORMAL)
[2017-12-18] VITALS (11 sets, daily range): BP systolic 103–129; BP diastolic 66–80; Ht 162.6 cm; Wt 66.9 kg
[2017-12-18 06:01] LABS: BASOPHILS 0.1 % (0-2); EOSINOPHILS 3.7 % (0-7); HEMATOCRIT 39.2 % (42.0-54.0); HEMOGLOBIN 13.3 g/dL (13.5-17.5); IMMATURE GRANULOCYTES 0.3 % (0-5); LYMPHOCYTES 36.1 % (15-50); MCH 31.4 pg (26.0-34.0); MCHC 33.9 g/dL (31.0-37.0); MCV 92.5 fL (80.0-100.0); MEAN PLATELET VOLUME 9.1 fL (7.4-10.4); NEUTROPHILS 51.8 % (40-80); PLATELET COUNT 263 10x3/uL (130-400); RBC 4.24 10x6/uL (4.20-6.10); RDW 13.5 % (11.5-14.5); WBC 7.9 10x3/uL (4.8-10.8)
[2017-12-18 07:31] LABS: CALC OSMOLALITY 283 mosm/kg (275-300); CARBON DIOXIDE 25.8 mmol/L (21.0-32.0); CHLORIDE - SERUM 108 mmol/L (98-107); CREATININE - SERUM 0.9 mg/dL (0.6-1.3); GLUCOSE 85 mg/dL (74-106); POTASSIUM - SERUM 4.3 mmol/L (3.5-5.1); SODIUM 143 mmol/L (136-145); UREA NITROGEN 13 mg/dL (7-18); eGFR NON AFRICAN AMERICAN > 90 mL/min (90-120)
== END 2017-12-18 19:35 | disposition home or self-care (01) ==
LOC: D.ER 16:18 → D.M2 18:51 → D.EDHOLD 18:51 → OBSVTIME 18:52 → D.M2 19:50
PROVIDERS: Family Medicine; Internal Medicine Cardiovascular Disease
DX: R07.9 Chest pain, unspecified (principal); I25.10 Atherosclerotic heart disease of native coronary artery without angina pectoris; Z95.5 Presence of coronary angioplasty implant and graft; J44.9 Chronic obstructive pulmonary disease, unspecified; K21.9 Gastro-esophageal reflux disease without esophagitis; F41.8 Other specified anxiety disorders; Z72.0 Tobacco use

== ENCOUNTER 2017-12-30 18:39 | Observation (INO) | payer MEDICARE ==
[~2017-12-30] VITALS: Ht 162.6 cm; Wt 77.6 kg
[2017-12-30 19:07] LABS: BASOPHILS 0.2 % (0-2); EOSINOPHILS 2.5 % (0-7); HEMOGLOBIN 15.7 g/dL (13.5-17.5); IMMATURE GRANULOCYTES 0.3 % (0-5); LYMPHOCYTES 33.8 % (15-50); MCH 32.8 pg (26.0-34.0); MCHC 35.7 g/dL (31.0-37.0); MCV 91.9 fL (80.0-100.0); NEUTROPHILS 54.2 % (40-80); PLATELET COUNT 303 10x3/uL (130-400); RBC 4.79 10x6/uL (4.20-6.10); RDW 13.4 % (11.5-14.5); WBC 12.3 10x3/uL (4.8-10.8)
[2017-12-30 19:28] LABS: ALBUMIN 3.7 g/dL (3.4-5.0); ALKALINE PHOSPHATASE 76 U/L (46-116); ALT (SGPT) 25 U/L (10-68); BILIRUBIN - TOTAL 0.36 mg/dL (0.2-1.3); CALC OSMOLALITY 273 mosm/kg (275-300); CALCIUM 9.1 mg/dL (8.5-10.1); CARBON DIOXIDE 28.4 mmol/L (21.0-32.0); CHLORIDE - SERUM 102 mmol/L (98-107); GLUCOSE 98 mg/dL (74-106); POTASSIUM - SERUM 3.8 mmol/L (3.5-5.1); PROTEIN - SERUM 7.5 g/dL (6.4-8.2); SODIUM 137 mmol/L (136-145); UREA NITROGEN 13 mg/dL (7-18); eGFR NON AFRICAN AMERICAN 80 mL/min (90-120)
[2017-12-30 19:39] LABS: CKMB 1.4 U/L (0.0-3.6)
[2017-12-30 19:45] LABS: TROPONIN-I < 0.017 ng/mL (0.000-0.060)
[2017-12-30 20:37] VITALS: BP 107/70
[2017-12-30 20:54] VITALS: BP 129/81
[2017-12-30 22:48] VITALS: BP 121/65; Ht 162.6 cm; Wt 77.6 kg
[2017-12-30] MEDS ORDERED: PLAVIX75 MG PO (22:54)
[2017-12-31] VITALS: BP 121/65
[2017-12-31 04:00] VITALS: BP 108/62
[2017-12-31 08:54] VITALS: BP 116/67
[2017-12-31 12:01] VITALS: BP 122/84
[2017-12-31 14:58] VITALS: BP 110/71
[2017-12-31 20:48] VITALS: BP 108/67
[2018-01-01 06:57] VITALS: BP 108/68
[2018-01-01 07:58] LABS: BASOPHILS 0.2 % (0-2); EOSINOPHILS 3.5 % (0-7); HEMATOCRIT 42.7 % (42.0-54.0); HEMOGLOBIN 14.8 g/dL (13.5-17.5); IMMATURE GRANULOCYTES 0.2 % (0-5); LYMPHOCYTES 31.4 % (15-50); MCH 32.4 pg (26.0-34.0); MCHC 34.7 g/dL (31.0-37.0); MCV 93.4 fL (80.0-100.0); MEAN PLATELET VOLUME 8.8 fL (7.4-10.4); MONOCYTES 7.8 % (2-11); NEUTROPHILS 56.9 % (40-80); RBC 4.57 10x6/uL (4.20-6.10); RDW 13.4 % (11.5-14.5)
[2018-01-01 08:01] LABS: PLATELET COUNT 242 10x3/uL (130-400); WBC 8.8 10x3/uL (4.8-10.8)
[2018-01-01 08:03] VITALS: BP 123/71
[2018-01-01 08:15] LABS: ALBUMIN 3.1 g/dL (3.4-5.0); ANION GAP 5.2 mmol/L (8-16); BILIRUBIN - TOTAL 0.26 mg/dL (0.2-1.3); CALCIUM 8.4 mg/dL (8.5-10.1); CARBON DIOXIDE 32.3 mmol/L (21.0-32.0); CREATININE - SERUM 1.1 mg/dL (0.6-1.3); PROTEIN - SERUM 6.7 g/dL (6.4-8.2)
[2018-01-01 08:16] LABS: POTASSIUM - SERUM 4.5 mmol/L (3.5-5.1)
[2018-01-01 11:20] VITALS: BP 120/66
[2018-01-01] MEDS ORDERED: BETAPACE 80 MG80 MG PO (12:56)
== END 2018-01-01 15:54 | disposition home or self-care (01) ==
LOC: D.ER 18:39 → OBSVTIME 21:59 → D.M2 21:59
PROVIDERS: Family Medicine
DX: I48.91 Unspecified atrial fibrillation (principal); I25.10 Atherosclerotic heart disease of native coronary artery without angina pectoris; F17.293 Nicotine dependence, other tobacco product, with withdrawal; K21.9 Gastro-esophageal reflux disease without esophagitis; I10 Essential (primary) hypertension; J44.9 Chronic obstructive pulmonary disease, unspecified

== ENCOUNTER 2018-01-27 21:09 | Emergency (ER) | payer MEDICARE ==
[~2018-01-27] VITALS: Ht 162.6 cm; Wt 61.4 kg
[~2018-01-27 21:09] MED LIST changes: +BETAPACE 80 MG80 MG PO
[2018-01-27 21:15] VITALS: Ht 162.6 cm; Wt 61.4 kg
[2018-01-27 21:40] LABS: BASOPHILS 0.2 % (0-2); EOSINOPHILS 3.3 % (0-7); HEMATOCRIT 40.1 % (42.0-54.0); HEMOGLOBIN 14.3 g/dL (13.5-17.5); IMMATURE GRANULOCYTES 0.2 % (0-5); MCH 32.7 pg (26.0-34.0); MCHC 35.7 g/dL (31.0-37.0); MCV 91.8 fL (80.0-100.0); MEAN PLATELET VOLUME 9.1 fL (7.4-10.4); NEUTROPHILS 47.3 % (40-80); PLATELET COUNT 227 10x3/uL (130-400); RBC 4.37 10x6/uL (4.20-6.10); RDW 13.1 % (11.5-14.5); WBC 9.8 10x3/uL (4.8-10.8)
[2018-01-27 21:48] LABS: APTT 26.9 SECONDS (22.8-39.4); INR 1.03 (0.85-1.17); PROTIME 13.1 SECONDS (11.6-15.0)
[2018-01-27 21:58] LABS: ALBUMIN 3.3 g/dL (3.4-5.0); ALKALINE PHOSPHATASE 73 U/L (46-116); ALT (SGPT) 22 U/L (10-68); BILIRUBIN - TOTAL 0.21 mg/dL (0.2-1.3); CALC OSMOLALITY 273 mosm/kg (275-300); CALCIUM 8.1 mg/dL (8.5-10.1); CARBON DIOXIDE 27.7 mmol/L (21.0-32.0); CHLORIDE - SERUM 105 mmol/L (98-107); CREATININE - SERUM 1.2 mg/dL (0.6-1.3); GLUCOSE 126 mg/dL (74-106); POTASSIUM - SERUM 3.5 mmol/L (3.5-5.1); PROTEIN - SERUM 6.6 g/dL (6.4-8.2); SODIUM 136 mmol/L (136-145); UREA NITROGEN 13 mg/dL (7-18); eGFR NON AFRICAN AMERICAN 65 mL/min (90-120)
[2018-01-27] MEDS ORDERED: BETAPACE 120 M120 MG PO (21:58)
[2018-01-27 22:08] LABS: CKMB 1.3 U/L (0.0-3.6); CREATINE KINASE 106 UL (21-232); PRO BNP 291 pg/mL (0-125)
[2018-01-27 22:10] LABS: TROPONIN-I < 0.017 ng/mL (0.000-0.060)
[2018-01-28 00:52] VITALS: BP 99/69
== END 2018-01-27 23:54 | disposition home or self-care (01) ==
LOC: D.ER 21:09
PROVIDERS: Family Medicine
DX: R07.9 Chest pain, unspecified (principal); I48.91 Unspecified atrial fibrillation; K21.9 Gastro-esophageal reflux disease without esophagitis; Z86.79 Personal history of other diseases of the circulatory system; I10 Essential (primary) hypertension; J44.9 Chronic obstructive pulmonary disease, unspecified; F17.200 Nicotine dependence, unspecified, uncomplicated

== ENCOUNTER 2018-02-08 20:45 | Emergency (ER) | payer MEDICARE ==
[~2018-02-08] VITALS: Ht 162.6 cm; Wt 68.6 kg
[~2018-02-08 20:45] MED LIST changes: +BETAPACE 120 M120 MG PO
[2018-02-08 20:54] VITALS: Ht 162.6 cm; Wt 68.6 kg
[2018-02-08] MEDS ORDERED: BUPROPION HCL75 MG (20:59)
[2018-02-08 22:02] LABS: BASOPHILS 0.3 % (0-2); EOSINOPHILS 3.5 % (0-7); HEMATOCRIT 41.9 % (42.0-54.0); HEMOGLOBIN 14.8 g/dL (13.5-17.5); IMMATURE GRANULOCYTES 0.3 % (0-5); LYMPHOCYTES 38.4 % (15-50); MCH 33.1 pg (26.0-34.0); MCHC 35.3 g/dL (31.0-37.0); MCV 93.7 fL (80.0-100.0); MEAN PLATELET VOLUME 9.4 fL (7.4-10.4); MONOCYTES 9.3 % (2-11); NEUTROPHILS 48.2 % (40-80); PLATELET COUNT 236 10x3/uL (130-400); RBC 4.47 10x6/uL (4.20-6.10); RDW 13.1 % (11.5-14.5); WBC 9.4 10x3/uL (4.8-10.8)
[2018-02-08 22:13] LABS: APTT 30.8 SECONDS (22.8-39.4); INR 1.12 (0.85-1.17)
[2018-02-08 22:24] LABS: ALBUMIN 3.6 g/dL (3.4-5.0); ALKALINE PHOSPHATASE 77 U/L (46-116); ALT (SGPT) 29 U/L (10-68); BILIRUBIN - TOTAL 0.31 mg/dL (0.2-1.3); CALC OSMOLALITY 275 mosm/kg (275-300); CALCIUM 8.5 mg/dL (8.5-10.1); CARBON DIOXIDE 29.2 mmol/L (21.0-32.0); CHLORIDE - SERUM 104 mmol/L (98-107); CREATININE - SERUM 1.3 mg/dL (0.6-1.3); GLUCOSE 88 mg/dL (74-106); POTASSIUM - SERUM 3.4 mmol/L (3.5-5.1); PROTEIN - SERUM 7.4 g/dL (6.4-8.2); SODIUM 140 mmol/L (136-145); UREA NITROGEN 8 mg/dL (7-18); eGFR NON AFRICAN AMERICAN 59 mL/min (90-120)
[2018-02-08 22:36] LABS: CKMB 1.3 U/L (0.0-3.6); CREATINE KINASE 121 UL (21-232); PRO BNP 275 pg/mL (0-125); TROPONIN-I < 0.017 ng/mL (0.000-0.060)
[2018-02-09 01:15] VITALS: BP 106/75
== END 2018-02-09 01:16 | disposition home or self-care (01) ==
LOC: D.ER 20:45
PROVIDERS: Family Medicine
DX: R07.89 Other chest pain (principal); I10 Essential (primary) hypertension; I48.91 Unspecified atrial fibrillation; J44.9 Chronic obstructive pulmonary disease, unspecified; N42.9 Disorder of prostate, unspecified; F17.200 Nicotine dependence, unspecified, uncomplicated

== ENCOUNTER → 2018-03-21 18:03 | Outpatient (CLI) | payer MEDICARE ==
[2018-02-08 20:54] VITALS: BMI 25.9
[~2018-03-21 18:03] MED LIST changes: +BUPROPION HCL75 MG
== END | disposition home or self-care (01) ==
LOC: D.MAMMO 14:00
DX: N64.4 Mastodynia (principal)

== ENCOUNTER → 2018-08-08 11:41 | Outpatient (CLI) | payer MEDICARE ==
[2018-02-08 20:54] VITALS: BMI 25.9
== END | disposition home or self-care (01) ==
LOC: D.HCCARDIO 11:00
PROVIDERS: ATTEND Internal Medicine Cardiovascular Disease
DX: I20.9 Angina pectoris, unspecified (principal)

== ENCOUNTER 2018-09-11 12:19 | Outpatient (CLI) | payer MEDICARE ==
[~2018-09-11] VITALS: Ht 165.1 cm; Wt 68.2 kg
--- NOTE | ~2018-09-11 | HEMODYNAMI ---
PATIENT:JAMES FELTON MEDICAL RECORD: [id number] : 55 LOCATION:[facility] ADMISSION DATE: 09/11/18 Generatedon:09/11/201815:36 Patient name: JAMES FELTON Patient #: [id number] SSN: : 1955 Date of study: 09/11/2018 Page: Of Hemodynamic Procedure Report Patient Data Patient Demographics Procedure consent was obtained First Name: JAMES Gender: Male Last Name: PURNIMA : 1955 [facility] Initial: PRIYA Age: 63 year(s) Patient #: [id number] Race: Unknown Additional ID: [id number] Contact details Address: [address] [place] [address] [place] State: [place] City: [place] Zip code: [address] Past Medical History Allergies: No known allergies Admission Admission Data Admission Date: 09/11/2018 Admission Time: 12:19 Weight (lbs.): 149.92 Weight (kg.): 68 Lab Results Lab Result Date: 09/11/2018 Lab Result Time: 0:00 Biochemistry Name Units Result Min Max BUN mg/dl 13 --(--*-)-- 7 18 Creatinine mg/dl 1.1 --(--*-)-- 0.6 1.3 CBC Name Units Result Min Max Hemoglobin g/dl 14.8 --(-*--)-- 13.5 17.5 Procedure Procedure Types Cath Procedure Diagnostic Procedure C [facility] w/Coronaries PCI Procedure Coronary Stent Coronary Stent Initial Procedure Description Procedure Date Procedure Date: 09/11/2018 Procedure Start Time: 15:13 Procedure End Time: 15:34 Procedure Staff Name Function Titi Crowley MD Performing Physician Parker Choi RT Monitor Danny Waldron RN Nurse Sayda Simental RT Scrub Procedure Data Cath Procedure Fluoroscopy Diagnostic fluoroscopy Total fluoroscopy Time: 3.9 time: 3.9 min min Diagnostic fluoroscopy Total fluoroscopy dose: 240 dose: 240 mGy mGy Contrast Material Contrast Material Type Amount (ml) Isovue 300 99 Entry Location Entry Primary Successful Side Size Upsize Upsize Entry Closure Succes sful Closure Location (Fr) 1 (Fr) 2 (Fr) Remarks Device Remarks Femoral Right 5 Fr 6 Fr Exoseal artery Short Estimated blood loss: 10 ml Diagnostic catheters Device Type Used For End Catheter Placement MULTIPACK JL 4.0 5Fr Procedure catheter MULTIPACK 3DRC 5Fr Procedure catheter MULTIPACK Pigtail 5 Fr Procedure catheter Procedure Complications No complications Procedure Medications Medication Administration Route Dosage Oxygen etCO2 Nasal cannula 2 l/min Lidocaine 2% added to field 20 Heparin Flush Bag added to field 2 bags (1000units/500ml NS) 0.9% NaCl I.V. 100 ml/hr Versed I.V. 1 mg Fentanyl I.V. 50 mcg Versed I.V. 1 mg Fentanyl I.V. 50 mcg Versed I.V. 1 mg Fentanyl I.V. 50 mcg Heparin Bolus I.V. 7000 units Versed I.V. 1 mg Fentanyl I.V. 50 mcg Plavix P.O. 75 mg Hemodynamics Rest HGB: 14.8 (g/dl) Heart Rate: 63 (bpm) Pressure Samples Time Site Value (mmHg) Purpose Heart Use Rate(bpm) 15:15 AO 82/50(64) Snapshot 51 15:21 LV 90/12,23 Snapshot 65 Gradients Valve Time Site Site Mean SEP/DFP Peak To Heart Use 1 2 (mmHg) (sec/min) Peak Rate (mmHg) (bpm) Aortic 15:21 LV AO 54 Snapshots Pre Cath Intra NCS Post Cath Vital Signs Time Heart Resp SPO2 etCO2 NIBP Rhythm Pain Sedation Rate (ipm) (%) (mmHg) (mmHg) Status Level (bpm) 14:58:42 46 20 96 0 121/72(92) NSR 0 (11) 10(A) , No pain 15:02:34 49 10 96 0 108/57(69) NSR 0 (11) 10(A) , No pain 15:06:23 50 13 98 2.2 106/61(85) NSR 0 (11) 10(A) , No pain 15:10:15 51 12 98 1.5 101/54(76) NSR 0 (11) 10(A) , No pain 15:14:06 48 18 98 31.6 97/57(70) NSR 0 (11) 9(A) , No pain 15:17:58 52 18 95 9.7 93/56(67) NSR 0 (11) 9(A) , No pain 15:21:49 54 16 96 27.8 93/54(64) NSR 0 (11) 9(A) , No pain 15:25:40 56 14 97 18 95/54(64) NSR 0 (11) 9(A) , No pain 15:30:03 57 19 97 21.8 102/62(74) NSR 0 (11) 10(A) , No pain 15:33:54 58 10 97 34.5 100/59(82) NSR 0 (11) 10(A) , No pain Medications Time Medication Route Dose Verified Delivered Reason Notes Effectiveness by by 15:05:55 Oxygen etCO2 2 Titi Buffie used for Nasal l/min Jose Waldron RN procedure cannula 15:06:05 Lidocaine 2% added 20ml Titi Titi for local to vial Jose Crowley MD anesthetic field 15:06:12 Heparin Flush added 2 Titi Titi used for Bag to bags Jose Crowley MD procedure (1000units/500ml field NS) 15:06:21 0.9% NaCl I.V. 100 Titi Buffie Per physician ml/hr Jose Waldron RN 15:06:29 Versed I.V. 1 mg Titi Buffie for sedation Jose Waldron RN 15:06:35 Fentanyl I.V. 50 Titi Buffie for sedation mcg Jose Waldron RN 15:12:03 Versed I.V. 1 mg Titi Buffie for sedation Jose Waldron RN 15:12:07 Fentanyl I.V. 50 Titi Buffie for sedation mcg Jose Waldron RN 15:14:30 Versed I.V. 1 mg Titi Buffie for sedation Jose Waldron RN 15:14:34 Fentanyl I.V. 50 Titi Buffie for sedation mcg Jose Waldron RN 15:24:47 Heparin Bolus I.V. 7000 Titi Buffie for verif ied units Jose Waldron RN anticoagulation with dr crowley 15:26:59 Versed I.V. 1 mg Titi Buffie for sedation Jose Waldron RN 15:27:04 Fentanyl I.V. 50 Titi Buffie for sedation mcg Jose Waldron RN 15:32:53 Plavix P.O. 75 mg Titi Delgado for Jose Waldron RN antiplatelet therapy Procedure Log Time Note 14:48:59 Danny Waldron RN sent for patient. Start room use. 14:49:00 Time tracking: Regular hours (M-F 7:00 - 5:00) 14:49:05 Plan of Care:Hemodynamics will remain stable., Cardiac rhythm will remain stable., Comfort level will be maintained., Respiratory function will remain adequate., Patient/ family verbilizes understanding of procedure., Procedure tolerated without complication., Recovers from procedure without complications.. 14:55:53 Patient received from Pre/Post Procedure Room to CCL 3 Alert and oriented. Tansferred to table in Supine position. 14:55:54 Warm blankets applied, and yolanda hugger turned on for patient comfort. 14:55:55 Correct patient and procedure confirmed by team. 14:55:57 Signed procedure consent form obtained from patient. 14:55:57 ECG and BP/O2 sat monitors applied to patient. 14:58:03 Vital chart was started 15:00:37 Baseline sample Acquired. 15:00:42 Rhythm: sinus bradycardia 15:00:51 Full Disclosure recording started 15:01:13 H&P Date Dictated: 08/29/2018 Within 30 days and on chart., H&P Addendum completed by physician on day of procedure. (MUST COMPLETE FOR ALL OUTPATIENTS). 15:01:13 Pre-procedure instructions explained to patient. 15:01:14 Pre-op teaching completed and patient verbalized understanding. 15:01:15 Family in patients room. 15:01:17 Patient NPO since Midnight. 15:01:20 Is the patient allergic to Iodine/contrast media? No. 15:01:31 Is patient on blood thinner?Yes 15:01:35 ACC The patient was administered the following blood thiners within the last 24 hours: ACCPlavix 15:01:39 Patient diabetic? No. 15:01:42 Previous problem with sedation/anesthesia? No ? 15:01:45 Snore? Yes 15:01:46 Sleep apnea? No 15:01:47 Deviated septum? No 15:01:47 Opens mouth fully? Yes 15:01:48 Sticks out tongue? Yes 15:01:52 Airway obstruction? Yes COPD 15:01:57 Dentures? No ? 15:01:59 Pre procedure: right dorsailis pedis pulse 1+ Palpable, but thready & weak; easily obliterated 15:02:16 Unable to palpate radial pulse. 15:02:26 Patient pain scale 0/10 ?. 15:02:41 IV patent on arrival in left forearm with 0.9% NaCl at O. 15:02:47 Lab results completed and on chart. 15:02:52 Right Radial & Right Groin area was prepped with chlora-prep and draped in sterile fashion 15:02:53 Alarms reviewed by R. N. 15:02:55 Sharps counted by scrub and verified by R.N. 15:03:01 Use device set Femoral Dx 15:03:03 Tegaderm 4 x 4 (1626W) opened to sterile field. 15:03:04 ACIST Hand Control (56882) opened to sterile field. 15:03:04 ACIST Manifold (21546) opened to sterile field. 15:03:06 ACIST Syringe (00762) opened to sterile field. 15:03:06 Bag Decanter (2002S) opened to sterile field. 15:03:06 Medline Cath Pack ([id number]) opened to sterile field. 15:03:09 SHEATH 5FR Hanover (LXY129) opened to sterile field. 15:03:11 DIAGNOSTIC WIRE .035 260cm J wire (157950) opened to sterile field. 15:03:14 DIAGNOSTIC Multipack 5Fr catheter set (PN0558) opened to sterile field. 15:04:16 Patient Weight : 149.92 lbs 15:04:39 Lab Result : Hemoglobin 14.8 g/dl 15:04:39 Lab Result : Creatinine 1.1 mg/dl 15:04:39 Lab Result : BUN 13 mg/dl 15:04:48 --------ALL STOP TIME OUT------ 15:04:48 Final Timeout: patient, procedure, and site verified with staff and physician. All members of the team are in agreement. 15:04:50 Right groin site verified by team. 15:04:53 Maximum allowable Isovue 300 dose 300ml. Physician notified. (300ml for normal creatinines. For patients with creatinine of 1.7 or higher multiply weight(kg) x 5 divided by creatinine.) 15:04:58 Fire Safety Assessment: A--An alcohol-based skin anteseptic being used preoperatively., C--Open oxygen or nitrous oxide is being used., D--An ESU, laser, or fiber-optic light is being used. 15:05:00 Physical assessment completed. ASA score P 2 - A patient with mild systemic disease as per Titi Crowley MD. 15:05:03 Sedation plan: IV Moderate Sedation Medication:Versed, Fentanyl 15:05:55 Oxygen 2 l/min etCO2 Nasal cannula was administered by Danny Waldron RN; used for procedure; 15:06:05 Lidocaine 2% 20ml vial added to field was administered by Titi Crowley MD; for local anesthetic; 15:06:12 Heparin Flush Bag (1000units/500ml NS) 2 bags added to field was administered by Titi Crowley MD; used for procedure; 15:06:21 0.9% NaCl 100 ml/hr I.V. was administered by Danny Waldron RN; Per physician; 15:06:29 Versed 1 mg I.V. was administered by Danny Waldron RN; for sedation; 15:06:35 Fentanyl 50 mcg I.V. was administered by Danny Waldron RN; for sedation; 15:12:03 Versed 1 mg I.V. was administered by Danny Waldron RN; for sedation; 15:12:07 Fentanyl 50 mcg I.V. was administered by Danny Waldron RN; for sedation; 15:13:08 Zero performed for pressure channel P1 15:13:11 Zero performed for pressure channel P1 15:13:15 Zero performed for pressure channel P1 15:13:22 Zero performed for pressure channel P1 15:13:29 Zero performed for pressure channel P1 15:13:40 Procedure started. 15:13:45 Local anesthetic to right femoral artery with Lidocaine 2% by Titi Crowley MD.INITIAL ACCESS ONLY 15:14:30 Versed 1 mg I.V. was administered by Danny Waldron RN; for sedation; 15:14:34 Fentanyl 50 mcg I.V. was administered by Danny Waldron RN; for sedation; 15:14:39 A 5 Fr sheath was inserted into the Right Femoral artery 15:14:47 A MULTIPACK JL 4.0 5Fr catheter was advanced over the wire and used for Procedure. 15:15:53 LCA angiography performed. 15:16:37 Catheter removed. 15:17:07 A MULTIPACK 3DRC 5Fr catheter was advanced over the wire and used for Procedure. 15:19:46 RCA angiography performed. 15:19:51 Catheter removed. 15:19:55 A MULTIPACK Pigtail 5 Fr catheter was advanced over the wire and used for Procedure. 15:20:18 Use device set CROWLEY PCI 15:20:20 SHEATH 6FR Hanover (NZH049) opened to sterile field. 15:20:25 BMW 300cm [place] 2 J wire ([id number]) opened to sterile field. 15:20:26 INFLATOR Merit BasixCompak (AK7334) opened to sterile field. 15:20:27 TUBING High Pressure Extension Tubing (Crowley) ([id number]) opened to sterile field. 15:21:20 LV angiography performed. 15:21:21 LV gram done using REYES 15:21:32 EF : 60 % 15:21:35 LV hemodynamics recorded. 15:21:48 Injector settings: Ml/sec: 10, Volume: 20, 15:21:53 Catheter removed. 15:22:07 GUIDE 6FR 3DRC catheter ([id number]) opened to sterile field. 15:22:16 Sheath upsized to a 6 Fr Short. 15:22:23 6 Fr 3DRC guide catheter was inserted over the wire 15:24:47 Heparin Bolus 7000 units I.V. was administered by Danny Waldron RN; for anticoagulation; verified with dr crowley 15:26:19 BMW wire advanced. 15:26:59 Versed 1 mg I.V. was administered by Danny Waldron RN; for sedation; 15:27:04 Fentanyl 50 mcg I.V. was administered by Danny Waldron RN; for sedation; 15:27:25 Wire advanced across lesion. 15:28:16 Place stent Inflation Number: 1 A INTEGRITY OTW 3.0 X 18 stent ([id number]) was prepped and advanced across the Mid RCA. The stent was deployed at 13 ALEXYS for 0:10 (min:sec). 15:29:34 EXOSEAL 6Fr (EX600) opened to sterile field. 15:29:40 Stent catheter was removed intact over wire. 15:29:41 Wire removed. 15:29:41 Guide catheter removed. 15:32:21 Sheath removed intact; hemostasis achieved with Exoseal to the Right Femoral artery. 15:32:30 Procedure ended.(Physican Out) 15:32:44 Fluoroscopy time 03.90 minutes. 15:32:49 Fluoroscopy dose: 240 mGy 15:32:49 Flurop Dose total: 240 15:32:53 Plavix 75 mg P.O. was administered by Danny Waldron RN; for antiplatelet therapy; 15:32:56 Contrast amount:Isovue 300 99ml. 15:32:58 Sharps counted by scrub and verified by R.N. 15:32:59 Insertion/operative site no bleeding no hematoma. 15:33:03 Post-op/insertion site Right Femoral artery dressed using a 4 x 4 and Tegaderm. 15:33:04 Post Procedure Pulses reassessed and unchanged 15:33:06 Post-procedure physical assessment completed. ASA score P 2 - A patient with mild systemic disease as per Titi Crowley MD. 15:33:08 Post procedure rhythm: unchanged. 15:33:11 Estimated blood loss: 10 ml 15:33:13 Post procedure instruction explained to patient.Patient verbalizes understanding. 15:33:14 Patient needs reinforcement of post procedure teaching. 15:33:20 Procedure type changed to Cath procedure, Diagnostic procedure, LHC, LHC w/Coronaries, PCI procedure, Coronary Stent, Coronary Stent Initial 15:33:21 Procedure and supply charges have been captured, reviewed, submitted and are correct. 15:33:54 Procedure Complication : No complications 15:33:56 Vital chart was stopped 15:33:57 See physician's report for complete and final results. 15:34:02 Report given to Pre/Post Procedure Room. 15:34:15 Patient transfered to Pre/Post Procedure Room with Bed. 15:34:16 Procedure ended. 15:34:16 Full Disclosure recording stopped 15:36:31 End room use (Document Last) Intervention Summary Intervention Notes Time ActionType Lesion and Equipment Action# Pressure Duration Attributes Used 15:28:16 Place stent Mid RCA INTEGRITY 1 13 00:10 OTW 3.0 X 18 stent ([id number]) Device Usage Item Name Manufacture Quantity Catalog Hospital Part Current Minimal L ot# / Number Charge Number Stock Stock Serial# Code Tegaderm 4 3M 1 1626W 013075 [id number] 238974 5 x 4 (1626W) ACIST Hand Acist 1 58041 615692 866261 344157 5 Control Medical (78603) Systems Inc ACIST Acist 1 75419 256027 635587 223666 5 Manifold Medical (74673) Systems Inc ACIST Acist 1 28641 805184 236452 852245 20 Syringe Medical (13337) Systems Inc Bag Microtek 1 2001S 860869 71782 152608 5 Decanter Medical Inc. () Medline Medline 1 [id number] 918247 75052 811913 5 Cath Pack ([id number]) SHEATH 5FR Terumo 1 VYQ565 244911 953637 151507 5 Hanover (ZSC728) DIAGNOSTIC St Tyrel 1 189854 632802 611493 828854 30 WIRE .035 260cm J wire (477243) DIAGNOSTIC Cardinal 1 RY0912 128345 06156 447886 30 Multipack Health 5Fr catheter set (HK2688) MULTIPACK Cardinal 1 452903 5 JL 4.0 5Fr Health catheter MULTIPACK Cardinal 1 903204 5 3DRC 5Fr Health catheter MULTIPACK Cardinal 1 301590 5 Pigtail 5 Health Fr catheter SHEATH 6FR Terumo 1 BGD887 939919 952224 295899 40 Hanover (FIC861) BMW 300cm Taveras 1 [id number] 503342 574017 521163 5 Mineola 2 Vascular J wire ([id number]) INFLATOR Merit 1 BT9387 487286 553579 663063 15 Merit Medical BasixCompak (XL4344) TUBING High Merit 1 [id number] 459480 55943 295999 10 Pressure Medical Extension Tubing (Crowley) (VM9902S) GUIDE 6FR Medtronic 1 [id number] 726897 411744 971826 1 3DRC catheter (IV29DAA) INTEGRITY Medtronic 1 [id number] 289452 670870 849365 1 0 [id number] OTW 3.0 X 18 stent ([id number]) EXOSEAL 6Fr Cardinal 1 EX600 080726 775249 646569 10 (EX600) Health Signature Audit [place] Stage Time Signature Unsigned Intra-Procedure 09/11/2018 Parker Choi 3:36:53 PM RT(R) Signatures Monitor : Parker Choi RT Signature : Date : Time : [place] [address] [place] [address]
[2018-09-11] MEDS ORDERED: OMEPRAZOLE40 MG PO (12:44)
[2018-09-11] MEDS ORDERED: PLAVIX75 MG PO (12:44)
[2018-09-11] MEDS ORDERED: BETAPACE 120 M120 MG PO (12:45)
[2018-09-11] MEDS ORDERED: NITROQUICK0.4 MG SL (12:47)
[2018-09-11] MEDS ORDERED: ZOFRAN8 MG PO (12:47)
[2018-09-11 13:02] VITALS: BP 130/73; Ht 165.1 cm; Wt 68.2 kg
[2018-09-11 13:04] LABS: BASOPHILS 0.1 % (0-2); EOSINOPHILS 4.4 % (0-7); HEMOGLOBIN 14.8 g/dL (13.5-17.5); IMMATURE GRANULOCYTES 0.4 % (0-5); LYMPHOCYTES 35.4 % (15-50); MCH 33.1 pg (26.0-34.0); MCHC 35.2 g/dL (31.0-37.0); MEAN PLATELET VOLUME 9.1 fL (7.4-10.4); MONOCYTES 6.6 % (2-11); NEUTROPHILS 53.1 % (40-80); PLATELET COUNT 263 10x3/uL (130-400); RBC 4.47 10x6/uL (4.20-6.10); RDW 12.4 % (11.5-14.5); WBC 7.9 10x3/uL (4.8-10.8)
[2018-09-11 13:16] LABS: ANION GAP 12.3 mmol/L (8-16); CALCIUM 8.6 mg/dL (8.5-10.1); CREATININE - SERUM 1.1 mg/dL (0.6-1.3); POTASSIUM - SERUM 4.3 mmol/L (3.5-5.1)
--- NOTE | 2018-09-11 16:05 | NUR ---
PATIENT RESTING, VSS ON 2L NC. RIGHT GROIN DRESSING IS CDI, NO S/S OF BLEEDING OR HEMATOMA.
--- NOTE | 2018-09-11 16:35 | NUR ---
PATIENT RESTING, VSS ON 2L NC. RIGHT GROIN DRESSING IS CDI, NO S/S OF BLEEDING OR HEMATOMA. PATIENT RESPONDS TO VERBAL STIMULI, DENIES PAIN.
--- NOTE | 2018-09-11 17:05 | NUR ---
PATIENT RESTING, WAKES TO VERBAL STIMULI. VSS ON 2L NC. RIGHT GROIN DRESSING IS CDI, NO S/S OF BLEEDING OR HEMATOMA. NO C/O PAIN, NUMBNESS, OR TINGLING.
--- NOTE | 2018-09-11 17:35 | NUR ---
PATIENT RESTING, VSS ON 2L NC. RIGHT GROIN DRESSING IS CDI, NO S/S OF BLEEDING OR HEMATOMA. NO C/O PAIN, NUMBNESS, OR TINGLING.
--- NOTE | 2018-09-11 18:05 | NUR ---
PATIENT RESTING, VSS ON 2L NC. RIGHT GROIN DRESSING IS CDI, NO S/S OF BLEEDING OR HEMATOMA. NO C/O PAIN, NUMBNESS, OR TINGLING. NO N/V.
--- NOTE | 2018-09-11 18:35 | NUR ---
HEAD OF BED ELEVATED TO 30 DEGREES, RIGHT GROIN DRESSING IS CDI, NO S/S OF BLEEDING OR HEMATOMA. NO C/O PAIN, NUMBNESS, OR TINGLING. PATIENT EATING PUDDING AND DRINKING SODA, NO N/V.
--- NOTE | 2018-09-11 19:05 | NUR ---
HEAD OF BED AT 90 DEGREES, RIGHT GROIN DRESSING IS CDI, NO S/S OF BLEEDING OR HEMATOMA. PATIENT EATING SANDWICH, VSS ON ROOM AIR. IV REMOVED.
--- NOTE | 2018-09-11 19:15 | NUR ---
EDUCATION REGARDING DISCHARGE INSTRUCTIONS AND MEDICATION COMPLIANCE GIVEN TO PATIENT, PATIENT VOICES UNDERSTANDING. VSS ON ROOM AIR. RIGHT GROIN DRESSING IS CDI, NO S/S OF BLEEDING OR HEMATOMA.
--- NOTE | 2018-09-11 19:30 | NUR ---
PATIENT VOIDED WITHOUT DIFFICULTY. PATIENT TRANSPORTED VIA WHEELCHAIR TO CAR WITH SPOUSE DRIVING, ALL BELONGINGS SENT WITH PATIENT.
== END 2018-09-11 19:30 ==
LOC: D.CATH 12:19
PROVIDERS: ATTEND Internal Medicine Cardiovascular Disease
DX: I25.110 Atherosclerotic heart disease of native coronary artery with unstable angina pectoris (principal); Q24.5 Malformation of coronary vessels; Z01.812 Encounter for preprocedural laboratory examination

== ENCOUNTER 2018-09-14 02:07 | Observation (INO) | payer MEDICARE ==
[~2018-09-14] VITALS: Ht 165.1 cm; Wt 68.0 kg
[~2018-09-14 02:07] MED LIST changes: +NITROQUICK0.4 MG SL; +OMEPRAZOLE40 MG PO; +ZOFRAN8 MG PO
[2018-09-14 02:58] LABS: BASOPHILS 0.3 % (0-2); EOSINOPHILS 4.4 % (0-7); HEMOGLOBIN 13.8 g/dL (13.5-17.5); IMMATURE GRANULOCYTES 0.4 % (0-5); LYMPHOCYTES 45.7 % (15-50); MCH 32.5 pg (26.0-34.0); MCHC 34.5 g/dL (31.0-37.0); MCV 94.1 fL (80.0-100.0); MEAN PLATELET VOLUME 9.1 fL (7.4-10.4); MONOCYTES 8.7 % (2-11); NEUTROPHILS 40.5 % (40-80); PLATELET COUNT 227 10x3/uL (130-400); RBC 4.25 10x6/uL (4.20-6.10); RDW 12.8 % (11.5-14.5); WBC 7.8 10x3/uL (4.8-10.8)
[2018-09-14 03:00] VITALS: BP 89/57
[2018-09-14 03:03] LABS: APTT 26.5 SECONDS (22.8-39.4); INR 1.03 (0.85-1.17)
[2018-09-14 03:10] LABS: ALBUMIN 3.3 g/dL (3.4-5.0); ALKALINE PHOSPHATASE 74 U/L (46-116); ALT (SGPT) 18 U/L (10-68); BILIRUBIN - TOTAL 0.25 mg/dL (0.2-1.3); CALC OSMOLALITY 280 mosm/kg (275-300); CALCIUM 8.7 mg/dL (8.5-10.1); CARBON DIOXIDE 30.6 mmol/L (21.0-32.0); CHLORIDE - SERUM 104 mmol/L (98-107); CREATININE - SERUM 1.1 mg/dL (0.6-1.3); GLUCOSE 100 mg/dL (74-106); POTASSIUM - SERUM 4.2 mmol/L (3.5-5.1); PROTEIN - SERUM 6.9 g/dL (6.4-8.2); SODIUM 141 mmol/L (136-145); UREA NITROGEN 12 mg/dL (7-18); eGFR NON AFRICAN AMERICAN 72 mL/min (90-120)
[2018-09-14 03:15] VITALS: BP 121/72
[2018-09-14 03:27] LABS: CKMB 1.2 U/L (0.0-3.6); CREATINE KINASE 108 UL (21-232); MAGNESIUM - SERUM 1.6 mg/dL (1.8-2.4)
[2018-09-14 03:28] LABS: TROPONIN-I 0.072 ng/mL (0.000-0.060)
[2018-09-14 04:00] VITALS: BP 118/77
--- NOTE | 2018-09-14 04:00 | NUR ---
PT STATES HE FEELS MUCH BETTER, FRIEND AT BEDSIDE, ON ROOM AIR, NS ON MONITOR,
[2018-09-14 04:28] LABS: CREATINE KINASE 112 UL (21-232)
[2018-09-14 04:31] LABS: TROPONIN-I 0.075 ng/mL (0.000-0.060)
--- NOTE | 2018-09-14 05:27 | NUR ---
CHEST PAIN DOWN TO A 2/10
--- NOTE | 2018-09-14 05:28 | NUR ---
ATTEMPTED TO CALL REPORT, THEY SAID THE NURSE WAS BUSY AND WOULD CALL ME BACK.
--- NOTE | 2018-09-14 06:30 | NUR ---
PATIENT ARRIVED TO UNIT VIA STRETCHER. PATIENT ALERT AND ORIENTED. RESPIRATIONS ARE EVEN AND UNLABORED. NO S/S OF DISTRESS. NO C/O PAIN. CALL LIGHT WITHIN REACH. WILL CPOC.
--- NOTE | 2018-09-14 06:31 | NUR ---
WENT TO DO PATIENT ADMISSION. HE STATED, HE WAS TO TRIED FROM BE UP ALL NIGHT. HE WOULD NOT PARTICAPATE. WILL PASS ALONG TO DAY SHIFT.
[2018-09-14 09:51] VITALS: BP 129/75
--- NOTE | 2018-09-14 10:41 | NUR ---
ASSESSMENT COMPLETED, ALERT AND ORIETED, DENIES ANY NEEDS, HAD A STENT PLACEMENT ON SUN. TELEMERTY SHOWS SR. SR UP WITH CALL LIGHT IN REACH
[2018-09-14 11:14] LABS: CREATINE KINASE 67 UL (21-232); TROPONIN-I 0.044 ng/mL (0.000-0.060)
[2018-09-14 13:11] VITALS: BP 144/77
[2018-09-14 13:15] VITALS: Ht 165.1 cm; Wt 68.0 kg
[2018-09-14 16:52] LABS: CKMB 0.8 U/L (0.0-3.6); CREATINE KINASE 75 UL (21-232); TROPONIN-I 0.027 ng/mL (0.000-0.060)
[2018-09-14 17:40] VITALS: BP 137/74
--- NOTE | 2018-09-14 18:33 | NUR ---
NO FUTHER PAIN. TELEMERTY SHOWS SR. NS AT 75CC HR.
--- NOTE | 2018-09-14 19:38 | NUR ---
RECEIVED REPORT, WILL ASSUME CARE OF PT, DENIES ANY NEEDS AT THIS TIME, BED IS LOW, SRX2, CALL LIGHT IN REACH, WILL CONTINUE PLAN OF CARE
[2018-09-15 00:20] VITALS: BP 126/76
[2018-09-15 00:29] VITALS: BP 135/79
--- NOTE | 2018-09-15 01:51 | NUR ---
PT SITTING UP IN CHAIR ASKING FOR WARM BLANKET, GAVE REQUESTED
--- NOTE | 2018-09-15 02:00 | NUR ---
I have reviewed this patient and I concur with the Shift Assessment completed by the Licensed Practical Nurse today this shift.
[2018-09-15 04:52] LABS: BASOPHILS 0 % (0-2); EOSINOPHILS 0 % (0-7); HEMATOCRIT 37.4 % (42.0-54.0); HEMOGLOBIN 12.9 g/dL (13.5-17.5); IMMATURE GRANULOCYTES 0.3 % (0-5); LYMPHOCYTES 16.1 % (15-50); MCH 32.2 pg (26.0-34.0); MCHC 34.5 g/dL (31.0-37.0); MCV 93.3 fL (80.0-100.0); MEAN PLATELET VOLUME 9.2 fL (7.4-10.4); MONOCYTES 9.1 % (2-11); NEUTROPHILS 74.5 % (40-80); PLATELET COUNT 245 10x3/uL (130-400); RBC 4.01 10x6/uL (4.20-6.10); RDW 12.7 % (11.5-14.5)
[2018-09-15 04:56] LABS: WBC 13.4 10x3/uL (4.8-10.8)
[2018-09-15 05:30] LABS: ALBUMIN 2.9 g/dL (3.4-5.0); ALKALINE PHOSPHATASE 64 U/L (46-116); ALT (SGPT) 18 U/L (10-68); BILIRUBIN - TOTAL 0.24 mg/dL (0.2-1.3); CALCIUM 8.1 mg/dL (8.5-10.1); CHLORIDE - SERUM 107 mmol/L (98-107); CREATININE - SERUM 0.9 mg/dL (0.6-1.3); GLUCOSE 106 mg/dL (74-106); MAGNESIUM - SERUM 1.4 mg/dL (1.8-2.4); POTASSIUM - SERUM 4.7 mmol/L (3.5-5.1); PROTEIN - SERUM 6.2 g/dL (6.4-8.2); SODIUM 139 mmol/L (136-145); eGFR NON AFRICAN AMERICAN > 90 mL/min (90-120)
[2018-09-15 05:34] LABS: CALC OSMOLALITY 280 mosm/kg (275-300); UREA NITROGEN 22 mg/dL (7-18)
[2018-09-15 05:35] LABS: CARBON DIOXIDE 22.4 mmol/L (21.0-32.0)
[2018-09-15 05:56] VITALS: BP 121/74
--- NOTE | 2018-09-15 07:56 | NUR ---
ASSESSMENT COMPLETED. ALERT AND ORIENTED. TELEMERTY SHOWS SR. UP AB ZOE. IV TO LEFT HAND PATENT. CALL LIGHT IN REACH WITH SR UP. WILL MONITOR
[2018-09-15 09:13] VITALS: BP 117/63
[2018-09-15 13:05] VITALS: BP 136/77
--- NOTE | 2018-09-15 14:39 | NUR ---
I have reviewed this patient and I concur with the Shift Assessment completed by the Licensed Practical Nurse today this shift.
[2018-09-15] MEDS ORDERED: ASPIRIN325 MG PO (15:10)
[2018-09-15] MEDS ORDERED: NICORELIEF4 MG PO (15:11)
--- NOTE | 2018-09-16 09:20 | MORECARE ---
CASE MANAGEMENT DISCHARGE SUMMARY PATIENT: JAMES FELTON UNIT: [id number] ADM DATE: 09/14/18 AGE: 63 : 55 SEX: M ROOM/BED: D.2119 AUTHOR: LEANDRO SWAIN PHYSICIAN: REFERRING PHYSICIAN: EMILY PRETTY DO DATE OF SERVICE: 09/16/18 Discharge Plan Patient Name: JAMES FELTON Facility: [facility]:[place] : 1955 Planned Disposition: Home Anticipated Discharge Date: 09/15/18 Discharge Date: 09/15/2018 Expected LOS: 1 Initial Reviewer: [email or web address] Initial Review Date: 09/16/2018 Generated: 09/16/18 10:20 am Patient Name: JAMES FELTON Page [id number] at 0920 All edits/amendments must be made on the electronic document DICTATION DATE: 09/16/18918 LITHOGRAPHY CONTACT WORKER: CHE 09/16/18918 RPT#: [id number] DC DATE:09/15/18 STATUS: DIS IN [facility] [address] [place] [address] END OF REPORT
--- NOTE | 2018-09-17 13:13 | CN ---
PATIENT NAME:JAMES FELTON MEDICAL RECORD: [id number] : 55 LOCATION:DNaren D.2119 ADMIT DATE: 09/14/18 ACCOUNT: [id number] CONSULTING PHYSICIAN: HARMONY BARRIOS MD REFERRING PHYSICIAN: EMILY PRETTY DO DATE OF CONSULTATION: 09/15/2018 HISTORY: A 63-year-old gentleman with known history of coronary artery disease, status post intervention [address] Garcia. He has had chest pain since that time. Also some right shoulder pain, atypical. Also severe reflux, not responding to hospital formulary PPI; and chronic low back pain. Admitted with chest pain. ECG without acute change. Cardiac enzymes are negative at this point. PAST MEDICAL HISTORY: Includes; 1. History of coronary artery disease as described above. 2. Chronic pain syndrome. 3. Dyslipidemia. 4. Atrial fibrillation. 5. Gastroesophageal reflux disease. ALLERGIES: None known. MEDICATIONS: Include Flexeril 10 t.i.d. p.r.n., Plavix 75 daily, atorvastatin 40 daily, sotalol 120 b.i.d., Panola 10/325 one p.o. t.i.d. p.r.n., aspirin 81 daily, omeprazole 40 daily, and Zofran 4 daily. SOCIAL HISTORY: He continues to smoke. Occasional marijuana use. No set exercise program. REVIEW OF SYSTEMS: The patient reports easy bruising but reports no swollen glands. The patient reports no fever, no night sweats, no significant weight gain, no significant weight loss. No significant exercise tolerance. The patient reports no dry eyes, no irritation, no vision change. Patient reports no difficulty hearing and no ear pain. Patient reports no frequent nose bleeds or nose and sinus problems. Patient reports on arm pain on exertion. No shortness of breath while lying down. No history of heart murmur. Patient reports no cough, no wheezing or coughing up blood. Patient reports no abdominal pain, no vomiting. Normal appetite. No diarrhea and not vomiting blood. No nausea and no constipation. Patient reports no incontinence. No difficulty urinating. No hematuria. No increased frequency. Patient reports no muscle aches. No weakness, no arthralgias, no back pain. No swelling of the extremities. Patient reports no abnormal mole, no jaundice, no rashes. Reports no loss of consciousness. No weakness and no numbness. No seizures, dizziness, or headaches. The patient reports no depression, no sleep disturbance, feeling safe in a relationship and no alcohol abuse. Patient reports on fatigue. Reports no runny nose or sinus pressure. No itching, no hives, and no frequent sneezing. PHYSICAL EXAMINATION: GENERAL: Middle-aged gentleman, appears older than stated age. VITAL SIGNS: Blood pressure 117/63. Pulse 73 and regular. HEENT: Normocephalic and atraumatic. NECK: No bruits are noted. HEART: Regular. II/ systolic ejection murmur. CONSULT REPORT [id number] JAMES FELTON LUNGS: Prolonged expiratory phase. Few expiratory wheezes. ABDOMEN: Soft and nontender. EXTREMITIES: Pulses 2+ with no edema. DIAGNOSTIC DATA: ECG without acute change. LABORATORY DATA: Cardiac enzymes are negative. IMPRESSION: Doubt acute stent pathology at this point some 2 days out in light of no ST changes or cardiac enzyme. We will continue PPI. Further recommendations based on clinical course. TRANSINT:[id number] Voice Confirmation ID: [id number] DOCUMENT ID: [id number] HARMONY BARRIOS MD at 1313 CC: [id number] DICTATION DATE: 09/15/18 1055 SOFTWARE INTEGRATION DEVELOPER: 09/15/18 181 DIS IN 09/15/18 [facility] [address] [place] [address]
== END 2018-09-15 17:36 | disposition home or self-care (01) ==
LOC: D.ER 02:07 → OBSVTIME 04:03 → D.M2 04:03
PROVIDERS: Family Medicine; ADMIT Family Medicine; ATTEND Family Medicine
DX: R07.9 Chest pain, unspecified (principal); I25.10 Atherosclerotic heart disease of native coronary artery without angina pectoris; I48.91 Unspecified atrial fibrillation; I10 Essential (primary) hypertension; J44.9 Chronic obstructive pulmonary disease, unspecified; K21.9 Gastro-esophageal reflux disease without esophagitis; F32.9 Major depressive disorder, single episode, unspecified; F41.9 Anxiety disorder, unspecified; Z72.0 Tobacco use

== ENCOUNTER 2018-11-10 15:18 | Inpatient (IN) | payer MEDICARE ==
[2018-11-10] VITALS (9 sets, daily range): BP systolic 83–117; BP diastolic 34–76; BMI 25.3
--- NOTE | ~2018-11-10 | HEMODYNAMI ---
PATIENT:JAMES FELTON MEDICAL RECORD: [id number] : 55 LOCATION:[facility] D.2308 ADMISSION DATE: 11/10/18 Generatedon:11/11/201811:20 Patient name: JAMES FELTON Patient #: [id number] SSN: : 1955 Date of study: 11/11/2018 Page: Of Hemodynamic Procedure Report Patient Data Patient Demographics Procedure consent was obtained First Name: JAMES Gender: Male Last Name: PURNIMA : 1955 Middle Initial: PRIYA Age: 63 year(s) Patient #: [id number] Race: Unknown Additional ID: [id number] Contact details Address: [address] [place] [address] lane State: [place] City: [place] Zip code: [address] Past Medical History Allergies: No known allergies Admission Admission Data Admission Date: 11/10/2018 Admission Time: 16:55 Arrival Date: 11/10/2018 Arrival Time: 16:55 Admit Source: Other Insurance Payor: Medicare Room #: D.2308 Height (in.): 64.96 BSA: 1.75 (m2) Height (cm.): 165 BMI: 24.98 (kg/m2) Weight (lbs.): 149.92 Weight (kg.): 68 Lab Results Lab Result Date: 11/11/2018 Lab Result Time: 0:00 Biochemistry Name Units Result Min Max BUN mg/dl 10 --(-*--)-- 7 18 Creatinine mg/dl 0.9 --(-*--)-- 0.6 1.3 CBC Name Units Result Min Max Hemoglobin g/dl 13.6 --(*---)-- 13.5 17.5 Procedure Procedure Types Cath Procedure Diagnostic Procedure [facility] w/Coronaries Procedure Description Procedure Date Procedure Date: 11/11/2018 Procedure Start Time: 11:04 Procedure End Time: 11:16 Procedure Staff Name Function Titi Garcia MD Performing Physician Lo Bahena RT Monitor Prince Real RT Scrub Anel Saleh RN Nurse Procedure Data Cath Procedure Fluoroscopy Diagnostic fluoroscopy Total fluoroscopy Time: 1.3 time: 1.3 min min Diagnostic fluoroscopy Total fluoroscopy dose: 382 dose: 382 mGy mGy Contrast Material Contrast Material Type Amount (ml) Isovue 370 58 Entry Location Entry Primary Successful Side Size Upsize Upsize Entry Closure Succes sful Closure Location (Fr) 1 (Fr) 2 (Fr) Remarks Device Remarks Femoral Right 5 Fr Exoseal artery Estimated blood loss: 5 ml Diagnostic catheters Device Type Used For End Catheter Placement MULTIPACK JL 4.0 5Fr Left Coronary catheter Angiography MULTIPACK 3DRC 5Fr Right Coronary catheter Angiography MULTIPACK Pigtail 5 Fr LV Angiography catheter Procedure Complications No complications Procedure Medications Medication Administration Route Dosage 0.9% NaCl I.V. 100 ml/hr Oxygen etCO2 Nasal cannula 2 l/min Lidocaine 2% added to field 20 Heparin Flush Bag added to field 2 bags (1000units/500ml NS) Versed I.V. 2 mg Fentanyl I.V. 50 mcg Versed I.V. 1 mg Fentanyl I.V. 25 mcg Hemodynamics Rest BSA: 1.75 (m2) HGB: 13.6 (g/dl) O2 Consumption: Estimated: 193.24 (ml/min) O2 Co nsumption indexed: Estimated:110.42 (ml/min/m) Heart Rate: 53 (bpm) Pressure Samples Time Site Value (mmHg) Purpose Heart Use Rate(bpm) 11:12 LV 129/5,18 Snapshot 61 11:13 AO 124/64(90) Pullback 66 11:13 LV 125/7,20 Pullback 66 Gradients Valve Time Site 1 Site 2 Mean SEP/DFP Peak To Heart Use (mmHg) (sec/min) Peak Rate (mmHg) (bpm) Aortic 11:13 LV AO 9 15 1 66 125/7,20 124/64(90) Calculations Valve P-P Mean Valve Index Valve Source Name Gradient Area Flow (cm2) Aortic 1 9 1 9 Snapshots Pre Cath Intra NCS Post Cath Vital Signs Time Heart Resp SPO2 etCO2 NIBP (mmHg) Rhythm Pain Sedation Rate (ipm) (%) (mmHg) Status Level (bpm) 10:51:34 52 18 99 32 134/80(112) SB 0 (11) 10(A) , No pain 10:55:44 54 21 100 17.2 126/76(93) SB 0 (11) 10(A) , No pain 11:00:00 56 19 100 10.5 103/64(78) SB 0 (11) 10(A) , No pain 11:04:10 61 16 99 37.5 94/58(72) NSR 0 (11) 9(A) , No pain 11:09:01 58 12 98 29 104/68(85) SB 0 (11) 9(A) , No pain 11:14:00 65 14 98 39.7 122/68(98) SB 0 (11) 10(A) , No pain Medications Time Medication Route Dose Verified Delivered Reason Notes Effe ctiveness by by 10:53:38 0.9% NaCl I.V. 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 2 mg Titi Anel for Jose Saleh sedation RN 10:58:26 Fentanyl I.V. 50 Titi Anel for mcg Jose Saleh sedation RN 11:03:33 Versed I.V. 1 mg Titi Anel for Jose Saleh sedation RN 11:03:37 Fentanyl I.V. 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 Start room use. 10:45:21 Informed consent obtained and on chart 10:45:53 Time tracking: Regular hours (M-F 7:00 - 5:00) 10:45:57 Plan of Care:Hemodynamics will remain stable., Cardiac rhythm will remain stable., Comfort level will be maintained., Respiratory function will remain adequate., Patient/ family verbilizes understanding of procedure., Procedure tolerated without complication., Recovers from procedure without complications.. 10:46:03 Patient received from ICU to [facility] 2 Alert and oriented. Tansferred to table in Supine position. 10:46:05 Warm blankets applied, and yolanda hugger turned on for patient comfort. 10:46:05 Correct patient and procedure confirmed by team. 10:46:06 ECG and BP/O2 sat monitors applied to patient. 10:50:35 Vital chart was started 10:53:24 Baseline sample Acquired. 10:53:29 Rhythm: sinus rhythm 10:53:30 Full Disclosure recording started 10:53:35 H&P Date Dictated: 11/11/2018 New H&P dictated by physician.. 10:53:37 Pre-procedure instructions explained to patient. 10:53:37 Pre-op teaching completed and patient verbalized understanding. 10:53:38 0.9% NaCl 100 ml/hr I.V. was administered by Anel Saleh RN; used for procedure; 10:53:38 Family unavailable. 10:53:40 Patient NPO since Midnight. 10:53:44 Oxygen 2 l/min etCO2 Nasal cannula was administered by Anel Saleh RN; used for procedure; 10:53:50 Lidocaine 2% 20ml vial added to field was administered by Anel Saleh RN; used for procedure; 10:53:52 Is the patient allergic to Iodine/contrast media? No. 10:53:53 Was the patient premedicated? No 10:53:55 Heparin Flush Bag (1000units/500ml NS) 2 bags added to field was administered by Anel Saleh RN; used for procedure; 10:54:00 Is patient on blood thinner?Yes 10:54:03 ACC The patient was administered the following blood thiners within the last 24 hours: ACCPlavix 10:56:34 Patient diabetic? No. 10:56:37 Previous problem with sedation/anesthesia? No ? 10:56:39 Snore? Yes 10:56:40 Sleep apnea? No 10:56:40 Deviated septum? No 10:56:41 Opens mouth fully? Yes 10:56:42 Sticks out tongue? Yes 10:56:46 Airway obstruction? Yes COPD 10:56:49 Dentures? No ? 10:56:52 Pre procedure: right dorsailis pedis pulse 2+ Normal; easily identifiable; not easily obliterated 10:56:55 Pre procedure: left dorsailis pedis pulse 2+ Normal; easily identifiable; not easily obliterated 10:56:58 Patient pain scale 0/10 ?. 10:57:04 IV patent on arrival in left forearm with 0.9% NaCl at [facility]. 10:57:07 Lab results completed and on chart. 10:57:11 Right groin area was prepped with chlora-prep and draped in sterile fashion 10:57:12 Alarms reviewed by R. N. 10:57:13 Sharps counted by scrub and verified by R.N. 10:57:21 Physician arrived 10:57:22 --------ALL STOP TIME OUT------ 10:57:22 Final Timeout: patient, procedure, and site verified with staff and physician. All members of the team are in agreement. 10:57:24 Right groin site verified by team. 10:57:26 Maximum allowable Isovue 370 dose 300ml. Physician notified. (300ml for normal creatinines. For patients with creatinine of 1.7 or higher multiply weight(kg) x 5 divided by creatinine.) 10:57:30 Fire Safety Assessment: A--An alcohol-based skin anteseptic being used preoperatively., C--Open oxygen or nitrous oxide is being used., D--An ESU, laser, or fiber-optic light is being used. 10:57:32 Physical assessment completed. ASA score P 2 - A patient with mild systemic disease as per Titi Garcia MD. 10:57:37 Sedation plan: IV Moderate Sedation Medication:Versed, Fentanyl 10:58:21 Versed 2 mg I.V. was administered by Anel Saleh RN; for sedation; 10:58:26 Fentanyl 50 mcg I.V. was administered by Anel Saleh RN; for sedation; 10:58:51 Lab Result : Hemoglobin 13.6 g/dl 10:58:51 Lab Result : Creatinine 0.9 mg/dl 10:58:51 Lab Result : BUN 10 mg/dl 10:58:57 Admit Source: Other 10:59:00 Patient Weight : 149.92 lbs 10:59:13 Patient Height : 64.96 inches 10:59:26 Arrival Date: 11/10/2018 4:55:00 PM 10:59:31 Insurance Payor : Medicare 11:02:28 Procedure started. 11:03:16 Zero performed for pressure channel P1 11:03:22 Zero performed for pressure channel P1 11:03:30 Zero performed for pressure channel P1 11:03:33 Versed 1 mg I.V. was administered by Anel Saleh RN; for sedation; 11:03:37 Fentanyl 25 mcg I.V. was administered by Anel Saleh RN; for sedation; 11:03:44 Zero performed for pressure channel P1 11:03:54 Zero performed for pressure channel P1 11:04:26 Local anesthetic to right femoral artery with Lidocaine 2% by Titi Garcia MD.INITIAL ACCESS ONLY 11:06:46 A 5 Fr sheath was inserted into the Right Femoral artery 11:07:49 Use device set Femoral Dx 11:07:50 ACIST Syringe (33687) opened to sterile field. 11:07:50 Bag Decanter (2002S) opened to sterile field. 11:07:51 Medline Cath Pack ([id number]) opened to sterile field. 11:07:51 DIAGNOSTIC WIRE .035 260cm J wire (505365) opened to sterile field. 11:07:52 ACIST Hand Control (74400) opened to sterile field. 11:07:53 ACIST Manifold (29150) opened to sterile field. 11:07:53 DIAGNOSTIC Multipack 5Fr catheter set (UV3708) opened to sterile field. 11:07:54 Tegaderm 4 x 4 (1626W) opened to sterile field. 11:07:55 SHEATH 5FR Jackson (BMY987) opened to sterile field. 11:08:04 A MULTIPACK JL 4.0 5Fr catheter was advanced over the wire and used for Left Coronary Angiography. 11:08:23 LCA angiography performed. 11:08:25 Injector settings: Ml/sec: 3, Volume: 6, 11:09:18 Catheter removed. 11:09:28 A MULTIPACK 3DRC 5Fr catheter was advanced over the wire and used for Right Coronary Angiography. 11:10:29 RCA angiography performed. 11:10:42 Injector settings: Ml/sec: 3, Volume: 6, 11:12:21 Catheter removed. 11:12:26 A MULTIPACK Pigtail 5 Fr catheter was advanced over the wire and used for LV Angiography. 11:13:01 LV hemodynamics recorded. 11:13:03 LV gram done using REYES 11:13:06 Injector settings: Ml/sec: 5, Volume: 15, 11:13:28 EF : 50 % 11:14:02 Catheter removed. 11:14:17 EXOSEAL 5Fr (EX500) opened to sterile field. 11:14:26 Sheath removed intact; hemostasis achieved with Exoseal to the Right Femoral artery. 11:15:03 Procedure ended.(Physican Out) 11:15:16 Fluoroscopy time 01.30 minutes. 11:15:20 Fluoroscopy dose: 382 mGy 11:15:20 Flurop Dose total: 382 11:15:27 Contrast amount:Isovue 370 58ml. 11:15:29 Sharps counted by scrub and verified by R.N. 11:15:29 Insertion/operative site no bleeding no hematoma. 11:15:32 Post-op/insertion site Right Femoral artery dressed using a 4 x 4 and Tegaderm. 11:15:33 Post Procedure Pulses reassessed and unchanged 11:15:36 Post procedure rhythm: unchanged. 11:15:39 Estimated blood loss: 5 ml 11:15:41 Post procedure instruction explained to patient.Patient verbalizes understanding. 11:15:41 Patient needs reinforcement of post procedure teaching. 11:15:50 Procedure and supply charges have been captured, reviewed, submitted and are correct. 11:15:54 Procedure Complication : No complications 11:16:00 Vital chart was stopped 11:16:01 See physician's report for complete and final results. 11:16:32 Report given to ICU. 11:16:35 Patient transfered to ICU with Stretcher. 11:16:38 Procedure ended. 11:16:38 Full Disclosure recording stopped 11:16:43 End room use (Document Last) Device Usage Item Name Manufacture Quantity Catalog Hospital Part Current Minimal L ot# / Number Charge Number Stock Stock Serial# Code ACIST Acist 1 30331 969535 209830 488679 20 Syringe Medical (90821) Systems Inc Bag Microtek 1 807821 88653 222911 5 Decanter Medical Inc. () Medline Medline 1 [id number] 395276 47933 987562 5 Cath Pack ([id number]) DIAGNOSTIC St Tyrel 1 765793 646345 707027 607497 30 WIRE .035 260cm J wire (846867) ACIST Hand Acist 1 03460 539640 172699 604220 5 Control Medical (37263) Systems Inc ACIST Acist 1 31812 230404 966380 933418 5 Manifold Medical (04338) Systems Inc DIAGNOSTIC Cardinal 1 JQ5816 732945 86673 505905 30 Multipack Health 5Fr catheter set (QF3534) Tegaderm 4 3M 1 1626W 710219 229873 470072 5 x 4 (1626W) SHEATH 5FR Terumo 1 KQA223 628661 391946 896562 5 Jackson (PWQ547) MULTIPACK Cardinal 1 726216 5 JL 4.0 5Fr Health catheter MULTIPACK Cardinal 1 580333 5 3DRC 5Fr Health catheter MULTIPACK Cardinal 1 190081 5 Pigtail 5 Health Fr catheter EXOSEAL 5Fr Cardinal 1 EX500 589516 419739 811352 10 (EX500) Health Signature Audit [place] Stage Time Signature Unsigned Intra-Procedure 11/11/2018 Lo Bahena 11:20:04 AM RT(R) Signatures Monitor : Lo Bahena RT Signature : Date : Time : [id number] [place] [address]
[~2018-11-10 15:18] MED LIST changes: +ASPIRIN325 MG PO; +NICORELIEF4 MG PO
[2018-11-10 16:01] LABS: BASOPHILS 0.1 % (0-2); EOSINOPHILS 3.5 % (0-7); HEMATOCRIT 43.2 % (42.0-54.0); HEMOGLOBIN 15.4 g/dL (13.5-17.5); IMMATURE GRANULOCYTES 0.2 % (0-5); MCH 33.5 pg (26.0-34.0); MCHC 35.6 g/dL (31.0-37.0); MCV 93.9 fL (80.0-100.0); MEAN PLATELET VOLUME 9.1 fL (7.4-10.4); MONOCYTES 9.3 % (2-11); NEUTROPHILS 47.9 % (40-80); PLATELET COUNT 229 10x3/uL (130-400); RDW 12.7 % (11.5-14.5); WBC 8.3 10x3/uL (4.8-10.8)
[2018-11-10 16:11] LABS: APTT 26.3 SECONDS (22.8-39.4); INR 1.07 (0.85-1.17); PROTIME 13.4 SECONDS (11.6-15.0)
[2018-11-10 16:14] LABS: ALBUMIN 3.4 g/dL (3.4-5.0); ALKALINE PHOSPHATASE 66 U/L (46-116); ALT (SGPT) 23 U/L (10-68); BILIRUBIN - TOTAL 0.61 mg/dL (0.2-1.3); CALC OSMOLALITY 280 mosm/kg (275-300); CALCIUM 8.9 mg/dL (8.5-10.1); CARBON DIOXIDE 29.6 mmol/L (21.0-32.0); CHLORIDE - SERUM 106 mmol/L (98-107); CREATININE - SERUM 1.1 mg/dL (0.6-1.3); GLUCOSE 89 mg/dL (74-106); POTASSIUM - SERUM 4.2 mmol/L (3.5-5.1); PROTEIN - SERUM 6.7 g/dL (6.4-8.2); SODIUM 142 mmol/L (136-145); UREA NITROGEN 10 mg/dL (7-18); eGFR NON AFRICAN AMERICAN 72 mL/min (90-120)
[2018-11-10 16:25] LABS: CKMB 1.6 U/L (0.0-3.6); CREATINE KINASE 66 UL (21-232); MAGNESIUM - SERUM 1.7 mg/dL (1.8-2.4)
[2018-11-10 16:32] LABS: TROPONIN-I < 0.017 ng/mL (0.000-0.060)
--- NOTE | 2018-11-10 18:03 | NUR ---
PT ARRIVED AT THIS TIME FROM ER. NO ACUTE DISTRESS NOTED. STATES CHEST PAIN IS A 2/10. INFORMATION SYSTEMS SPECIALIST FOR PRIMARY PHYSICIAN HERE TO SEE PT. VSS. WILL CONTINUE PLAN OF CARE.
[2018-11-10] MEDS ORDERED: [UNRECOGNIZED DRUG - OTHER] (18:22)
[2018-11-10] MEDS ORDERED: ANTIDEPRESSANT (18:22)
--- NOTE | 2018-11-10 18:51 | NUR ---
PT COMPLAINT OF CHEST PAIN OF 10/; HEART RHYTHM ALSO NOTED CONVERTING BACK AND FORTH FROM 52 SINUS TRACY UP TO 145 AFIB BACK TO 50S-70S SINUS AND AFIB RHYTHM, SPOKE WITH DR WHITEHEAD, STATED TO APPLY NITRO PASTE 1/2 INCH AND RECHECK CARDIAC ENZYMES AT [address]. [address] ORDERS.
--- NOTE | 2018-11-10 19:00 | NUR ---
REPORT RECEIVED, CARE ASSUMED. PT IS LAYING IN BED AT THIS TIME. INITIAL ASSESSMENT COMPLETED, SEE FLOWSHEET FOR DETAILS. PT DENIES NEEDS AT THIS TIME. WILL CONTINUE TO MONITOR.
--- NOTE | 2018-11-10 21:00 | NUR ---
PT IS RESTING IN BED AT THIS TIME. NO SIGNS OF ACUTE DISTRESS NOTED. WILL CONTINUE TO MONITOR.
[2018-11-10] MEDS ORDERED: LEXAPRO10 MG PO (21:10)
[2018-11-10 22:56] LABS: CKMB 1.1 U/L (0.0-3.6); CREATINE KINASE 53 UL (21-232); TROPONIN-I < 0.017 ng/mL (0.000-0.060)
--- NOTE | 2018-11-10 23:00 | NUR ---
REASSESSMENT COMPLETED, SEE FLOWSHEET FOR DETAILS. PT IS LAYING IN BED WITH EYES CLOSED AT THIS TIME. NO SIGNS OF ACUTE DISTRESS NOTED. PT DENIES ANY NEEDS AT THIS TIME. WILL CONTINUE TO MONITOR.
[2018-11-11] VITALS (8 sets, daily range): BP systolic 89–130; BP diastolic 60–83; BMI 25.1
--- NOTE | 2018-11-11 01:00 | NUR ---
PT IS LAYING IN BED WITH EYES CLOSED AT THIS TIME. PT DENIES ANY NEEDS AT THIS TIME. NO SIGNS OF ACUTE DISTRESS. WILL CONTINUE TO MONITOR.
--- NOTE | 2018-11-11 03:00 | NUR ---
REASSESSMENT COMPLETED, SEE FLOWSHEET FOR DETAILS. PT IS LAYING IN BED WITH EYES CLOSED AT THIS TIME. NO SIGNS OF ACUTE DISTRESS. WILL CONTINUE TO MONITOR CLOSELY.
[2018-11-11 03:56] LABS: BASOPHILS 0.1 % (0-2); HEMATOCRIT 39.2 % (42.0-54.0); HEMOGLOBIN 13.6 g/dL (13.5-17.5); IMMATURE GRANULOCYTES 0.1 % (0-5); LYMPHOCYTES 37.7 % (15-50); MCH 32.7 pg (26.0-34.0); MCHC 34.7 g/dL (31.0-37.0); MCV 94.2 fL (80.0-100.0); MEAN PLATELET VOLUME 9.3 fL (7.4-10.4); MONOCYTES 8.1 % (2-11); RBC 4.16 10x6/uL (4.20-6.10); RDW 13.1 % (11.5-14.5); WBC 7.9 10x3/uL (4.8-10.8)
[2018-11-11 03:57] LABS: PLATELET COUNT 176 10x3/uL (130-400)
[2018-11-11 04:23] LABS: ALBUMIN 2.7 g/dL (3.4-5.0); ALKALINE PHOSPHATASE 53 U/L (46-116); ALT (SGPT) 18 U/L (10-68); BILIRUBIN - TOTAL 0.36 mg/dL (0.2-1.3); CALC OSMOLALITY 289 mosm/kg (275-300); CALCIUM 7.8 mg/dL (8.5-10.1); CARBON DIOXIDE 26.1 mmol/L (21.0-32.0); CHLORIDE - SERUM 111 mmol/L (98-107); CREATINE KINASE 47 UL (21-232); CREATININE - SERUM 0.9 mg/dL (0.6-1.3); GLUCOSE 90 mg/dL (74-106); MAGNESIUM - SERUM 1.5 mg/dL (1.8-2.4); POTASSIUM - SERUM 3.6 mmol/L (3.5-5.1); PROTEIN - SERUM 5.3 g/dL (6.4-8.2); SODIUM 146 mmol/L (136-145); TROPONIN-I < 0.017 ng/mL (0.000-0.060); UREA NITROGEN 10 mg/dL (7-18); eGFR NON AFRICAN AMERICAN > 90 mL/min (90-120)
--- NOTE | 2018-11-11 05:00 | NUR ---
PT IS RESTING IN BED AT THIS TIME. CHG BATH PERFORMED BY PT. COMPLETE LINEN CHANGE DONE. NO SIGNS OF ACUTE DISTRESS. WILL CONTINUE TO MONITOR.
--- NOTE | 2018-11-11 07:15 | NUR ---
REPORT RECIEVED, SHIFT ASSESSMENT COMPLETE, PT IS ALERT AND ORIENTED, ON 2L NC WITH 97% O2 SAT. ALL PPP, VSS, CALL LIGHT IN REACH
--- NOTE | 2018-11-11 10:42 | NUR ---
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
[2018-11-11 11:00] LABS: CKMB 1.1 U/L (0.0-3.6); CREATINE KINASE 43 UL (21-232); TROPONIN-I 0.019 ng/mL (0.000-0.060)
--- NOTE | 2018-11-11 11:37 | NUR ---
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
--- NOTE | 2018-11-11 13:00 | NUR ---
PT RESTING AT THIS TIME, NO NEEDS NOTED, WILL CON'T TO MONITOR
--- NOTE | 2018-11-11 13:23 | NUR ---
REPORT CALLED TO NARCISO ON MED 2
--- NOTE | 2018-11-11 13:46 | NUR ---
RECEIVED PT FROM ICU NURSEOSITO. TRANSFERRED PT TO BED IN 2119. CATH SITE TO RIGHT GROIN CLEAN AND DRY. INSTRUCTED PT TO LIE FLAT FOR 2 HOURS. AWAKE ALERT AND ORIENTED.
--- NOTE | 2018-11-11 18:57 | NUR ---
REPORT GIVEN TO ONCOMING NURSE. PT RESTING STABLE. IN BED.
--- NOTE | 2018-11-11 19:35 | NUR ---
ASSESSMENT COMPLETE, PT A&O. RESPERATIONS EVEN ON RA. IV TO LEFT AC WITH NS INFUSING AT 200 CC/HR, IV SITE CLEAN AND DRY. DRSG TO RIGHT GROIN C/D/I. NO SWELLING, BLEEDING OR HEMATOMA NOTED. PT CURRENTLY DENIES NEEDS, BED LOW, CL IN REACH.
--- NOTE | 2018-11-11 20:15 | NUR ---
HS MEDS GIVEN WITH FRESH ICE WATER. BETAPACE HELD DUE TO HR BEING 54 ON TELEMETRY.
--- NOTE | 2018-11-11 23:04 | NUR ---
RESTING WITH EYES CLOSED, RESPERATIONS EVEN, NO S/S DISTRESS NOTED.
[2018-11-12 04:00] VITALS: BP 184/89
[2018-11-12 04:43] LABS: BASOPHILS 0.1 % (0-2); EOSINOPHILS 3.3 % (0-7); HEMATOCRIT 37.5 % (42.0-54.0); HEMOGLOBIN 12.9 g/dL (13.5-17.5); IMMATURE GRANULOCYTES 0.1 % (0-5); LYMPHOCYTES 29.1 % (15-50); MCH 32.6 pg (26.0-34.0); MCHC 34.4 g/dL (31.0-37.0); MCV 94.7 fL (80.0-100.0); MEAN PLATELET VOLUME 9.4 fL (7.4-10.4); MONOCYTES 7.7 % (2-11); NEUTROPHILS 59.7 % (40-80); PLATELET COUNT 180 10x3/uL (130-400); RBC 3.96 10x6/uL (4.20-6.10); WBC 7.3 10x3/uL (4.8-10.8)
[2018-11-12 05:02] LABS: ALBUMIN 2.6 g/dL (3.4-5.0); ALKALINE PHOSPHATASE 49 U/L (46-116); ALT (SGPT) 17 U/L (10-68); BILIRUBIN - TOTAL 0.61 mg/dL (0.2-1.3); CALC OSMOLALITY 283 mosm/kg (275-300); CALCIUM 7.4 mg/dL (8.5-10.1); CARBON DIOXIDE 24.9 mmol/L (21.0-32.0); CHLORIDE - SERUM 110 mmol/L (98-107); CREATININE - SERUM 0.8 mg/dL (0.6-1.3); GLUCOSE 77 mg/dL (74-106); MAGNESIUM - SERUM 1.7 mg/dL (1.8-2.4); POTASSIUM - SERUM 3.3 mmol/L (3.5-5.1); PROTEIN - SERUM 5.4 g/dL (6.4-8.2); SODIUM 144 mmol/L (136-145); UREA NITROGEN 8 mg/dL (7-18); eGFR NON AFRICAN AMERICAN > 90 mL/min (90-120)
--- NOTE | 2018-11-12 05:09 | NUR ---
MORPHINE 4 MG GIVEN FOR C/O PAIN TO BACK. RATES PAIN AT A 9 ON PAIN SCALE.
--- NOTE | 2018-11-12 07:42 | NUR ---
ROUNDING DONE WITH PATIENT REQUESTING BLACK COFFEE WITH 10 SUGARS AND THREE CREAMERS. GIVEN. LEFT AC PIC SEEN WITH NS INFUSING AT 100 CC/HR. EMPTIED 250 CC SURESH YELLOW URINE FROM URINAL. ON HEART MONITOR SHWOING SR, HR 73. ON EP, K+ IS 3.3, MAG IS 1.7. WILL COVER WITH SUPPLEMENTS. RIGHT GROIN DRESSING FROM S C/D/I.
[2018-11-12 07:58] VITALS: BP 150/89
--- NOTE | 2018-11-12 09:36 | NUR ---
ASSSITED PATIENT BACK FROM RESTROOM. COMPLAINTS OF PAIN TO RIGHT LEG 02/18. NORCO 10 MG GIVEN. RIGHT GROIND IS SLIGHTLY FIRM, NO BRUISING SEEN, PPP AND STRONG.
[2018-11-12] MEDS ORDERED: BETAPACE 120 M120 MG PO (10:39)
[2018-11-12 12:15] VITALS: BP 143/77
--- NOTE | 2018-11-12 14:08 | NUR ---
RE-DRAW OF POTASSIUM WITH RESUTLS OF 3.9.
--- NOTE | 2018-11-12 14:48 | NUR ---
I CALLED ANDREAS IN ICU TO INQUIRE ABOUT PATIENT CELL PHONE THAT HE LOST FROM TRANSFER FROM UNIT.
--- NOTE | 2018-11-12 15:02 | MORECARE ---
CASE MANAGEMENT DISCHARGE SUMMARY PATIENT: JAMES FELTON UNIT: [id number] ADM DATE: 11/10/18 AGE: 63 : 55 SEX: M ROOM/BED: D.4636 AUTHOR: LEANDRO SWAIN PHYSICIAN: REFERRING PHYSICIAN: GRUPO DIAL MD DATE OF SERVICE: 11/12/18 Discharge Plan Patient Name: JAMES FELTON Facility: [facility]:[place] : 1955 Planned Disposition: Home Anticipated Discharge Date: 11/12/18 Discharge Date: Expected LOS: 2 Initial Reviewer: [email or web address] Initial Review Date: 11/12/2018 Generated: 11/12/18 4:02 pm Comments DCP- Discharge Planning Updated by [email or web address]: Diego Chaney on 11/12/18 2:[address] Patient Name: JAMES FELTON Admission Status: ER Accout number: [id number] Admission Date: 11-10-2018 : 1955 Admission Diagnosis:CHEST PAIN, UNSPECIFIED Attending: GRUPO DIAL Current LOS: 2 Anticipated DC Date: 11-12-2018 Planned Disposition: Home Primary Insurance: [employer]ICARE ADV Discharge Planning Comments: CM MET WITH PT IN ROOM TO DISCUSS DISCHARGE PLANNING AND NEEDS. PT REPORTS LIVING AT HOME INDEPENDENTLY WITH HIS . PT HAS NO MEDICAL EQUIPMENT AND NO OUTSIDE SERVICES ASSISTING IN THE HOME. CM DISCUSSED AVAILABILITY OF HOME HEALTH, REHAB SERVICES AND MEDICAL EQUIPMENT. PT DENIES DISCHARGE NEEDS, REPORTS HIS OR SISTER IN LAW WILL PICK HIM UP FOR DISCHARGE HOME. PT REPORTS HAVING SOME LEG PAIN FROM THE HEART CATHETER SIGHT IN HIS GROIN, ASKED ABOUT GETTING A NEW CANE. CM EXPLAINED INSURANCE DOES NOT PAY FOR A CANE; CM DISCUSSED HAVING THERAPY ORDERED TO WALK PATIENT, PT DECLINED AND STATES IF HE NEEDS A CANE, HE HAS A CANE AND WALKER FROM HIS AT HOME HE WOULD USE. PT DENIES DISCHARGE NEEDS AT THIS TIME. PT PLANS TO DISCHARGE HOME WITH SPOUSE, FAMILY TO TRANSPORT HOME, NO ANTICIPATED DISCHARGE NEEDS AT THIS TIME. CM TO FOLLOW AND ASSIST IF NEEDED. Apprentice Funeral Director: Diego Chaney DCPIA - Discharge Planning Initial Assessment Updated by [email or web address]: Diego Chaney on 11/12/18 2:58 pm * Is the patient Alert and Oriented? Yes * How many steps to enter\exit or inside your home? RAMP * PCP DR. MURO * Pharmacy [facility] [address] * Preadmission Environment Home with Family * ADLs Independent * Equipment None * Other Equipment NO MEDICAL EQUIPMENT PROVIDER PREFERENCE * List name and contact numbers for known caregivers / representatives who currently or will assist patient after discharge: SANJUANA FELTON, SPOUSE, * Verbal permission to speak to the caregivers and representatives has been obtained from the patient. N/A * Community resources currently utilized None * Please name any agencies selected above. NONE * Additional services required to return to the preadmission environment? No * Can the patient safely return to the preadmission environment? Yes * Has this patient been hospitalized within the prior 30 days at any hospital? No Patient Name: JAMES FELTON Page [phone] at 1502 All edits/amendments must be made on the electronic document DICTATION DATE: 11/12/18 1502 MEDICAL CODING INSTRUCTOR: CHE 11/12/18 1502 RPT#: [id number] DC DATE: STATUS: ADM IN [facility] [address] [place] [address] END OF REPORT
--- NOTE | 2018-11-12 15:39 | NUR ---
INFORMED PATIENT TO CALL HIS I WAS JUST HANDED HIS DISCHARGE PAPERWORK. HIS CELL PHONE IS ON HIS BEDSDIE TABLE.
[2018-11-12 16:00] VITALS: BP 136/81
--- NOTE | 2018-11-12 16:05 | NUR ---
CALLED TO ROOM PATIENT IS COMPLAINING OF RIGHT KNEE/LEG PAIN. I ASKED THE PATIENT TO CALL HIS AND TELL HER TO WAIT ON COMING TO PICK HIM UP AT THIS TIME. I TRIED CALL [facility] AND NO ANSWER, I CALLED AND LEFT DR MALDONADO A VOICE MAIL TO CALL ME BACK SO I COULD LET HIM KNOW THIS.
--- NOTE | 2018-11-12 16:12 | NUR ---
DR MALDONADO IN TO SEE PATIENT.
--- NOTE | 2018-11-12 16:29 | NUR ---
NEW ORDERS FROM DR MALDONADO.
--- NOTE | 2018-11-12 19:31 | NUR ---
ASSESSMENT COMPLETE, PT A&O. RESPERATIONS EVEN ON RA. IV TO LEFT AC WITH NS INFUSING AT 100 CC/HR. DRSG TO RIGHT GROIN FROM CARDIAC CATH DONE EARLIER IN THE WEEK. NO SWELLING OR BLEEDING NOTED. PEDAL PULSES PRESENT. PT C/O PAIN TO RIGHT KNEE, NO REDDNESS OR SORES NOTED. RIGHT LEG ELEVATED ON PILLOW. INFORMED PT THAT I WILL BRING PAIN PILL SOON ITS TIME, PT DENIES FURTHER NEEDS.
[2018-11-12 21:24] VITALS: BP 146/85
[2018-11-13] VITALS: BP 116/58
[2018-11-13 04:30] VITALS: BP 153/90
[2018-11-13 04:57] LABS: BASOPHILS 0.3 % (0-2); EOSINOPHILS 3.4 % (0-7); HEMATOCRIT 38.1 % (42.0-54.0); HEMOGLOBIN 13.4 g/dL (13.5-17.5); IMMATURE GRANULOCYTES 0.1 % (0-5); LYMPHOCYTES 34.4 % (15-50); MCH 32.9 pg (26.0-34.0); MCHC 35.2 g/dL (31.0-37.0); MCV 93.6 fL (80.0-100.0); MEAN PLATELET VOLUME 9.3 fL (7.4-10.4); MONOCYTES 8.2 % (2-11); NEUTROPHILS 53.6 % (40-80); PLATELET COUNT 188 10x3/uL (130-400); RBC 4.07 10x6/uL (4.20-6.10); RDW 12.9 % (11.5-14.5)
[2018-11-13 05:00] LABS: ALBUMIN 2.9 g/dL (3.4-5.0); ALKALINE PHOSPHATASE 58 U/L (46-116); ALT (SGPT) 17 U/L (10-68); BILIRUBIN - TOTAL 0.45 mg/dL (0.2-1.3); CALC OSMOLALITY 278 mosm/kg (275-300); CALCIUM 8.3 mg/dL (8.5-10.1); CHLORIDE - SERUM 106 mmol/L (98-107); CREATININE - SERUM 0.8 mg/dL (0.6-1.3); GLUCOSE 91 mg/dL (74-106); MAGNESIUM - SERUM 1.5 mg/dL (1.8-2.4); POTASSIUM - SERUM 3.9 mmol/L (3.5-5.1); PROTEIN - SERUM 5.8 g/dL (6.4-8.2); SODIUM 141 mmol/L (136-145); UREA NITROGEN 8 mg/dL (7-18); eGFR NON AFRICAN AMERICAN > 90 mL/min (90-120)
--- NOTE | 2018-11-13 06:08 | NUR ---
PT C/O PAIN TO RIGHT LEG, RATES PAIN AT A 9 ON PAIN SCALE. RIGHT KNEE IS SLIGHTLY SWOLLEN, PEDAL PULSES PRESENT, MARKED PULSE WITH MARKER. NORCO 1 TAB GIVEN AT PT REQUEST.
--- NOTE | 2018-11-13 07:49 | MORECARE ---
CASE MANAGEMENT DISCHARGE SUMMARY PATIENT: JAMES FELTON UNIT: [id number] ADM DATE: 11/10/18 AGE: 63 : 55 SEX: M ROOM/BED: D.4190 AUTHOR: LEANDRO SWAIN PHYSICIAN: REFERRING PHYSICIAN: GRUPO DIAL MD DATE OF SERVICE: 11/13/18 Discharge Plan Patient Name: JAMES FELTON Facility: [facility]:[place] : 1955 Planned Disposition: Home Anticipated Discharge Date: 11/12/18 Discharge Date: Expected LOS: 2 Initial Reviewer: [email or web address] Initial Review Date: 11/12/2018 Generated: 11/13/18 8:49 am Comments DCP- Discharge Planning Updated by [email or web address]: Diego Chaney on 11/12/18 2:[address] Patient Name: JAMES FELTNO Admission Status: ER Accout number: [id number] Admission Date: 11-10-2018 : 1955 Admission Diagnosis:CHEST PAIN, UNSPECIFIED Attending: GRUPO DIAL Current LOS: 2 Anticipated DC Date: 11-12-2018 Planned Disposition: Home Primary Insurance: [employer] MEDICARE ADV Discharge Planning Comments: CM MET WITH PT IN ROOM TO DISCUSS DISCHARGE PLANNING AND NEEDS. PT REPORTS LIVING AT HOME INDEPENDENTLY WITH HIS . PT HAS NO MEDICAL EQUIPMENT AND NO OUTSIDE SERVICES ASSISTING IN THE HOME. CM DISCUSSED AVAILABILITY OF HOME HEALTH, REHAB SERVICES AND MEDICAL EQUIPMENT. PT DENIES DISCHARGE NEEDS, REPORTS HIS OR SISTER IN LAW WILL PICK HIM UP FOR DISCHARGE HOME. PT REPORTS HAVING SOME LEG PAIN FROM THE HEART CATHETER SIGHT IN HIS GROIN, ASKED ABOUT GETTING A NEW CANE. CM EXPLAINED INSURANCE DOES NOT PAY FOR A CANE; CM DISCUSSED HAVING THERAPY ORDERED TO WALK PATIENT, PT DECLINED AND STATES IF HE NEEDS A CANE, HE HAS A CANE AND WALKER FROM HIS AT HOME HE WOULD USE. PT DENIES DISCHARGE NEEDS AT THIS TIME. PT PLANS TO DISCHARGE HOME WITH SPOUSE, FAMILY TO TRANSPORT HOME, NO ANTICIPATED DISCHARGE NEEDS AT THIS TIME. CM TO FOLLOW AND ASSIST IF NEEDED. Independent Jeweler: Diego Chaney DCPIA - Discharge Planning Initial Assessment Updated by [email or web address]: Diego Chaney on 11/12/18 2:58 pm * Is the patient Alert and Oriented? Yes * How many steps to enter\exit or inside your home? RAMP * PCP DR. MURO * Pharmacy [facility] [address] * Preadmission Environment Home with Family * ADLs Independent * Equipment None * Other Equipment NO MEDICAL EQUIPMENT PROVIDER PREFERENCE * List name and contact numbers for known caregivers / representatives who currently or will assist patient after discharge: SANJUANA FELTON, SPOUSE, * Verbal permission to speak to the caregivers and representatives has been obtained from the patient. N/A * Community resources currently utilized None * Please name any agencies selected above. NONE * Additional services required to return to the preadmission environment? No * Can the patient safely return to the preadmission environment? Yes * Has this patient been hospitalized within the prior 30 days at any hospital? No Last DP export: 11/12/18 2:02 pm Patient Name: JAMES FELTON Page [id number] at 0749 All edits/amendments must be made on the electronic document DICTATION DATE: 11/13/18747 MEDICAL SCHEDULER: CHE 11/13/18747 RPT#: [id number] DC DATE: STATUS: ADM IN [facility] [address] [place] [address] END OF REPORT
--- NOTE | 2018-11-13 08:11 | NUR ---
ASSESSMENT DONE. DENIES NEEDS
[2018-11-13 08:40] VITALS: BP 143/85
[2018-11-13 12:30] VITALS: BP 133/76
[2018-11-13 16:36] VITALS: BP 146/89
--- NOTE | 2018-11-13 17:30 | NUR ---
WITHOUT CHANGES OR DISTRESS NOTED AT THIS TIME. DENIES NEEDS.
[2018-11-13 20:00] VITALS: BP 123/67
--- NOTE | 2018-11-14 03:21 | NUR ---
RESTING WITH EYES CLOSED, RESPERATIONS EVEN, NO S/S DISTRESS NOTED.
[2018-11-14 04:00] VITALS: BP 104/61
[2018-11-14 06:05] LABS: BASOPHILS 0.1 % (0-2); EOSINOPHILS 4.2 % (0-7); HEMATOCRIT 36.1 % (42.0-54.0); HEMOGLOBIN 12.7 g/dL (13.5-17.5); IMMATURE GRANULOCYTES 0.3 % (0-5); LYMPHOCYTES 33.5 % (15-50); MCH 33.2 pg (26.0-34.0); MCHC 35.2 g/dL (31.0-37.0); MCV 94.5 fL (80.0-100.0); MEAN PLATELET VOLUME 9.4 fL (7.4-10.4); MONOCYTES 12.2 % (2-11); NEUTROPHILS 49.7 % (40-80); PLATELET COUNT 173 10x3/uL (130-400); RBC 3.82 10x6/uL (4.20-6.10); RDW 13.2 % (11.5-14.5); WBC 7.6 10x3/uL (4.8-10.8)
[2018-11-14 06:22] LABS: ALBUMIN 2.6 g/dL (3.4-5.0); ALKALINE PHOSPHATASE 53 U/L (46-116); ALT (SGPT) 15 U/L (10-68); BILIRUBIN - TOTAL 0.31 mg/dL (0.2-1.3); CALCIUM 8.7 mg/dL (8.5-10.1); CARBON DIOXIDE 32.4 mmol/L (21.0-32.0); CHLORIDE - SERUM 106 mmol/L (98-107); CREATININE - SERUM 0.8 mg/dL (0.6-1.3); GLUCOSE 84 mg/dL (74-106); MAGNESIUM - SERUM 1.8 mg/dL (1.8-2.4); PROTEIN - SERUM 5.7 g/dL (6.4-8.2); SODIUM 141 mmol/L (136-145); eGFR NON AFRICAN AMERICAN > 90 mL/min (90-120)
[2018-11-14 06:32] LABS: CALC OSMOLALITY 279 mosm/kg (275-300); POTASSIUM - SERUM 4.6 mmol/L (3.5-5.1); UREA NITROGEN 13 mg/dL (7-18)
--- NOTE | 2018-11-14 07:45 | NUR ---
AM ROUNDS COMPLETED. INTRODUCED MYSELF TO PT PRIMARY RN FOR TODAYS SHIFT. PT IS A&O SITTING UP IN BED RESTING QUIETLY. SHIFT ASSESSMENT COMPLETED. PT STATES HE IS FEELING WELL OVERALL BUT DOES C/O HIS R.KNEE STILL BEING VERY STIFF AND SWOLLEN. UPON ASSESSING IT ITS DEFINITELY SWOLLEN COMPARED TO HIS LEFT KNEE BUT ITS VERY SOFT AND MUSHY. DISCUSSED WITH PRIMARY AND WILL OBTAIN XRAY. PT VOICED THANKS. NO IMMEDIATE NEEDS AT THIS TIME. WILL CPOC.
--- NOTE | 2018-11-14 08:55 | NUR ---
PROVIDED PT WITH MORNING MEDICATIONS AND XRAY TEAM JUST TOOK XRAY. PT SITTING UP IN BED RESTING QUIETLY. DENIES ANY CURRENT PAIN OR NEEDS. CL IN REACH, WILL CTM.
[2018-11-14 09:23] VITALS: BP 134/70
--- NOTE | 2018-11-14 11:22 | NUR ---
PT C/O PAIN IN HIS R.KNEE ESPECIALLY AFTER HE JUST AMBULATED WITH THERAPY. PT REQUESTING AND PROVIDED WITH PRN NORCO. NO FURTHER NEEDS AT THIS TIME. CL IN REACH. WILL CTM.
--- NOTE | 2018-11-14 12:08 | MORECARE ---
CASE MANAGEMENT DISCHARGE SUMMARY PATIENT: JAMES FELTON UNIT: [id number] ADM DATE: 11/10/18 AGE: 63 : 55 SEX: M ROOM/BED: D.9110 AUTHOR: LEANDRO SWAIN PHYSICIAN: REFERRING PHYSICIAN: GRUPO DIAL MD DATE OF SERVICE: 11/14/18 Discharge Plan Patient Name: JAMES FELTON Facility: [facility]:[place] : 1955 Planned Disposition: Home Anticipated Discharge Date: 11/14/18 Discharge Date: Expected LOS: 4 Initial Reviewer: [id number] Initial Review Date: 11/12/2018 Generated: 11/14/18 1:08 pm Comments DCP- Discharge Planning Updated by [id number]: Diego Chaney on 11/14/18 11:[address] Patient Name: JAMES FELTON Encounter No: [id number] : 1955 Primary Insurance: [employer] MEDICARE ADV Anticipated DC Date: 11-14-2018 Planned Disposition: Home DCP follow-up note: CM MET WITH PT IN ROOM TO DISCUSS DISCHARGE NEEDS AND PLANNING. CM DISCUSSED AVAILABILITY OF HOME HEALTH, REHAB SERVICES AND MEDICAL EQUIPMENT. PT DENIES DISCHARGE NEEDS WITH CONTINUED PLAN TO RETURN HOME AT DISCHARGE. CM DISCUSSED PT'S KNEE PAIN AND THERAPY NOTE INDICATING YESTERDAY THAT PT WAS IN TOO MUCH PAIN TO WALK, DISCUSSED REHAB OPTIONS WELL HOME HEALTH AGAIN. PT STATES HE REALLY NEEDS TO GET HOME TO HELP HIS , HE DOES NOT WANT ANYONE IN THE HOUSE BECAUSE IT IS SUCH A MESS. PT STATES HE WAS ABLE TO WALK [facility] DOWN THE [place] WITH THERAPY TODAY. PT REPORTS HIS SPOUSE TO TRANSPORT HOME AT DISCHARGE. IMPORTANT MESSAGE FROM MEDICARE PROVIDED AND EXPLAINED. CM TO FOLLOW AND ASSIST NEEDED. DANIELA Alejo DCP- Discharge Planning Updated by [id number]: Diego Chaney on 11/12/18 2:[address] Patient Name: JAMES FELTON Admission Status: ER Accout number: [id number] Admission Date: 11-10-2018 : 1955 Admission Diagnosis:CHEST PAIN, UNSPECIFIED Attending: GRUPO DIAL Current LOS: 2 Anticipated DC Date: 11-12-2018 Planned Disposition: Home Primary Insurance: [employer] MEDICARE ADV Discharge Planning Comments: CM MET WITH PT IN ROOM TO DISCUSS DISCHARGE PLANNING AND NEEDS. PT REPORTS LIVING AT HOME INDEPENDENTLY WITH HIS . PT HAS NO MEDICAL EQUIPMENT AND NO OUTSIDE SERVICES ASSISTING IN THE HOME. CM DISCUSSED AVAILABILITY OF HOME HEALTH, REHAB SERVICES AND MEDICAL EQUIPMENT. PT DENIES DISCHARGE NEEDS, REPORTS HIS OR SISTER IN LAW WILL PICK HIM UP FOR DISCHARGE HOME. PT REPORTS HAVING SOME LEG PAIN FROM THE HEART CATHETER SIGHT IN HIS GROIN, ASKED ABOUT GETTING A NEW CANE. CM EXPLAINED INSURANCE DOES NOT PAY FOR A CANE; CM DISCUSSED HAVING THERAPY ORDERED TO WALK PATIENT, PT DECLINED AND STATES IF HE NEEDS A CANE, HE HAS A CANE AND WALKER FROM HIS AT HOME HE WOULD USE. PT DENIES DISCHARGE NEEDS AT THIS TIME. PT PLANS TO DISCHARGE HOME WITH SPOUSE, FAMILY TO TRANSPORT HOME, NO ANTICIPATED DISCHARGE NEEDS AT THIS TIME. CM TO FOLLOW AND ASSIST IF NEEDED. Health Nurse: Diego Chaney DCPIA - Discharge Planning Initial Assessment Updated by [id number]: Diego Chaney on 11/12/18 2:58 pm * Is the patient Alert and Oriented? Yes * How many steps to enter\exit or inside your home? RAMP * PCP DR. MURO * Pharmacy [facility] ON [address] * Preadmission Environment Home with Family * ADLs Independent * Equipment None * Other Equipment NO MEDICAL EQUIPMENT PROVIDER PREFERENCE * List name and contact numbers for known caregivers / representatives who currently or will assist patient after discharge: SANJUANA FELTON, SPOUSE, * Verbal permission to speak to the caregivers and representatives has been obtained from the patient. N/A * Community resources currently utilized None * Please name any agencies selected above. NONE * Additional services required to return to the preadmission environment? No * Can the patient safely return to the preadmission environment? Yes * Has this patient been hospitalized within the prior 30 days at any hospital? No Coverage Notice Reviewer: [id number] - Diego Chaney Notice Issued Date-Time: 11/14/2018 12:00 Notice Type: IM Discharge Notice Notice Delivered To: Patient Relationship to Patient: Electronic Calibration Technician Name: Delivery Method: HAND - Hand Delivered Marilu Days: Prior Verbal Notification: Recipient Understood Notice: Yes Recipient Signature: Yes Med Rec Note Co-signed by Attending: Coverage Notice Comment: Last DP export: 11/13/18 6:49 am Patient Name: JAMES FELTON Page [phone] at 1208 All edits/amendments must be made on the electronic document DICTATION DATE: 11/14/181207 TORCH HEATER: CHE 11/14/181207 RPT#: [id number] DC DATE: STATUS: ADM IN [facility] [address] [place] [address] END OF REPORT
[2018-11-14 13:35] VITALS: BP 111/60
--- NOTE | 2018-11-14 14:41 | NUR ---
Nutrition follow-up: Diet: AHA PO intake 100% of some meals labs reviewed Wt: 151# PO intake good at this time RDN following.
[2018-11-14 18:07] VITALS: BP 118/79
--- NOTE | 2018-11-14 18:46 | NUR ---
AT BEDSIDE AND REMOVING FLUID OFF PTS R.KNEE. COLLECTED AND SENT TO LAB FOR CULTURE. WRAPPED R.LEG WITH DAJA BANDAGE AND ELEVATED ON A PILLOW. PT DENIES ANY CURRENT NEEDS AT THIS TIME. CL IN REACH, BED IN LOWEST, SIDE RAILS X2. WILL CTM.
--- NOTE | 2018-11-14 19:30 | NUR ---
RESUMING PATIENT CARE. PATIENT IS ALERT AND ORIENTED, RESTING COMFORTABLY IN BED. RESPIRATIONS ARE EVEN AND UNLABORED. NO S/S OF DISTRESS. NO C/O PAIN. NEEDS MET. CALLLIGHT WITHIN REACH. WILL CPOC.
[2018-11-14 20:00] VITALS: BP 149/89
[2018-11-14 20:19] LABS: MACROPHAGES BF 4 %; NEUT - BF 91 %
[2018-11-15 04:00] VITALS: BP 127/74
[2018-11-15 06:54] LABS: ALKALINE PHOSPHATASE 64 U/L (46-116); BILIRUBIN - TOTAL 0.27 mg/dL (0.2-1.3); CALC OSMOLALITY 280 mosm/kg (275-300); CALCIUM 9.3 mg/dL (8.5-10.1); CHLORIDE - SERUM 102 mmol/L (98-107); CREATININE - SERUM 0.9 mg/dL (0.6-1.3); GLUCOSE 93 mg/dL (74-106); MAGNESIUM - SERUM 2.1 mg/dL (1.8-2.4); POTASSIUM - SERUM 4.8 mmol/L (3.5-5.1); PROTEIN - SERUM 6.7 g/dL (6.4-8.2); SODIUM 141 mmol/L (136-145); UREA NITROGEN 13 mg/dL (7-18); eGFR NON AFRICAN AMERICAN > 90 mL/min (90-120)
[2018-11-15 06:56] LABS: ALT (SGPT) 20 U/L (10-68)
[2018-11-15 06:59] LABS: BASOPHILS 0.1 % (0-2); EOSINOPHILS 5.7 % (0-7); HEMATOCRIT 39.6 % (42.0-54.0); HEMOGLOBIN 13.8 g/dL (13.5-17.5); IMMATURE GRANULOCYTES 0.5 % (0-5); LYMPHOCYTES 31.1 % (15-50); MCH 33.4 pg (26.0-34.0); MCHC 34.8 g/dL (31.0-37.0); MCV 95.9 fL (80.0-100.0); MEAN PLATELET VOLUME 9.6 fL (7.4-10.4); MONOCYTES 10.5 % (2-11); NEUTROPHILS 52.1 % (40-80); PLATELET COUNT 181 10x3/uL (130-400); RBC 4.13 10x6/uL (4.20-6.10); RDW 13.2 % (11.5-14.5); WBC 8.1 10x3/uL (4.8-10.8)
--- NOTE | 2018-11-15 07:24 | NUR ---
REPORT RECEIVED. WILL CONTINUE WITH POC. PT CURRENTLY LYING SUPINE. CALL LIGHT W/I REACH. PT IS RESTING AT THE MOMENT. RR EVEN AND UNLABORED ON RA. L.FOR PIV IS SALINE LOCKED. PT DENIES ANY NEEDS AT THIS TIME. NO S/S OF DISTRESS NOTED. WILL CTM.
[2018-11-15 09:18] VITALS: BP 115/71
[2018-11-15 13:12] VITALS: BP 106/76
--- NOTE | 2018-11-15 13:17 | NUR ---
PREVIOUS PIV INFILTRATED. REMOVED PIV WITH CATHETER TIP FULLY INTACT. STARTED NEW PIV TO THE LEFT HAND PIV 22 GA X1 ATTEMPT. PT TOLERATED WELL. FLUSHED WITH 10ML NS TO CONFIRM PATENCY. WILL CTM.
--- NOTE | 2018-11-15 16:16 | MORECARE ---
CASE MANAGEMENT DISCHARGE SUMMARY PATIENT: JAMES FELTON UNIT: [id number] ADM DATE: 11/10/18 AGE: 63 : 55 SEX: M ROOM/BED: D.7260 AUTHOR: LEANDRO SWAIN PHYSICIAN: REFERRING PHYSICIAN: GRUPO DIAL MD DATE OF SERVICE: 11/15/18 Discharge Plan Patient Name: JAMES FELTON Facility: [facility]:[place] : 1955 Planned Disposition: Home with Home Health Anticipated Discharge Date: 11/16/18 Discharge Date: Expected LOS: 6 Initial Reviewer: [id number] Initial Review Date: 11/12/2018 Generated: 11/15/18 5:16 pm DCP- Discharge Planning Updated by [email or web address]: Diego Chaney on 11/14/18 11:[address] Patient Name: JAMES FELTON Encounter No: [id number] : 1955 Primary Insurance: [employer] MEDICARE ADV Anticipated DC Date: 11-14-2018 Planned Disposition: Home DCP follow-up note: CM MET WITH PT IN ROOM TO DISCUSS DISCHARGE NEEDS AND PLANNING. CM DISCUSSED AVAILABILITY OF HOME HEALTH, REHAB SERVICES AND MEDICAL EQUIPMENT. PT DENIES DISCHARGE NEEDS WITH CONTINUED PLAN TO RETURN HOME AT DISCHARGE. CM DISCUSSED PT'S KNEE PAIN AND THERAPY NOTE INDICATING YESTERDAY THAT PT WAS IN TOO MUCH PAIN TO WALK, DISCUSSED REHAB OPTIONS WELL HOME HEALTH AGAIN. PT STATES HE REALLY NEEDS TO GET HOME TO HELP HIS , HE DOES NOT WANT ANYONE IN THE HOUSE BECAUSE IT IS SUCH A MESS. PT STATES HE WAS ABLE TO WALK [facility] DOWN THE [place] WITH THERAPY TODAY. PT REPORTS HIS SPOUSE TO TRANSPORT HOME AT DISCHARGE. IMPORTANT MESSAGE FROM MEDICARE PROVIDED AND EXPLAINED. CM TO FOLLOW AND ASSIST NEEDED. DANIELA Alejo DCP- Discharge Planning Updated by [email or web address]: Diego Chaney on 11/12/18 2:[address] Patient Name: JAMES FELTON Admission Status: ER Accout number: [id number] Admission Date: 11-10-2018 : 1955 Admission Diagnosis:CHEST PAIN, UNSPECIFIED Attending: GRUPO DIAL Current LOS: 2 Anticipated DC Date: 11-12-2018 Planned Disposition: Home Primary Insurance: [employer] MEDICARE ADV Discharge Planning Comments: CM MET WITH PT IN ROOM TO DISCUSS DISCHARGE PLANNING AND NEEDS. PT REPORTS LIVING AT HOME INDEPENDENTLY WITH HIS . PT HAS NO MEDICAL EQUIPMENT AND NO OUTSIDE SERVICES ASSISTING IN THE HOME. CM DISCUSSED AVAILABILITY OF HOME HEALTH, REHAB SERVICES AND MEDICAL EQUIPMENT. PT DENIES DISCHARGE NEEDS, REPORTS HIS OR SISTER IN LAW WILL PICK HIM UP FOR DISCHARGE HOME. PT REPORTS HAVING SOME LEG PAIN FROM THE HEART CATHETER SIGHT IN HIS GROIN, ASKED ABOUT GETTING A NEW CANE. CM EXPLAINED INSURANCE DOES NOT PAY FOR A CANE; CM DISCUSSED HAVING THERAPY ORDERED TO WALK PATIENT, PT DECLINED AND STATES IF HE NEEDS A CANE, HE HAS A CANE AND WALKER FROM HIS AT HOME HE WOULD USE. PT DENIES DISCHARGE NEEDS AT THIS TIME. PT PLANS TO DISCHARGE HOME WITH SPOUSE, FAMILY TO TRANSPORT HOME, NO ANTICIPATED DISCHARGE NEEDS AT THIS TIME. CM TO FOLLOW AND ASSIST IF NEEDED. Dining Service Supervisor: Diego Chaney DCPIA - Discharge Planning Initial Assessment Updated by [email or web address]: Diego Chaney on 11/12/18 2:58 pm * Is the patient Alert and Oriented? Yes * How many steps to enter\exit or inside your home? RAMP * PCP DR. MURO * Pharmacy [facility] ON [address] * Preadmission Environment Home with Family * ADLs Independent * Equipment None * Other Equipment NO MEDICAL EQUIPMENT PROVIDER PREFERENCE * List name and contact numbers for known caregivers / representatives who currently or will assist patient after discharge: SANJUANA FELTON, SPOUSE, * Verbal permission to speak to the caregivers and representatives has been obtained from the patient. N/A * Community resources currently utilized None * Please name any agencies selected above. NONE * Additional services required to return to the preadmission environment? No * Can the patient safely return to the preadmission environment? Yes * Has this patient been hospitalized within the prior 30 days at any hospital? No Coverage Notice Reviewer: [id number] - Diego Chaney Notice Issued Date-Time: 11/14/2018 12:00 Notice Type: IM Discharge Notice Notice Delivered To: Patient Relationship to Patient: Rebar Bender Name: Delivery Method: HAND - Hand Delivered Marilu Days: Prior Verbal Notification: Recipient Understood Notice: Yes Recipient Signature: Yes Med Rec Note Co-signed by Attending: Coverage Notice Comment: Last DP export: 11/14/18 11:08 am Patient Name: JAMES FELTON Page [id number] at 1616 All edits/amendments must be made on the electronic document DICTATION DATE: 11/15/181615 OPERATING THEATRE TECHNICIAN: CHE 11/15/181615 RPT#: [id number] DC DATE: STATUS: ADM IN [facility] [address] [place] [address] END OF REPORT
--- NOTE | 2018-11-15 16:25 | MORECARE ---
CASE MANAGEMENT DISCHARGE SUMMARY PATIENT: JAMES FELTON UNIT: [id number] ADM DATE: 11/10/18 AGE: 63 : 55 SEX: M ROOM/BED: D.2120 AUTHOR: LENADRO SWAIN PHYSICIAN: REFERRING PHYSICIAN: GRUPO DIAL MD DATE OF SERVICE: 11/15/18 Discharge Plan Patient Name: JAMES FELTON Facility: [facility]:[place] : 1955 Planned Disposition: Home with Home Health Anticipated Discharge Date: 11/16/18 Discharge Date: Expected LOS: 6 Initial Reviewer: [email or web address] Initial Review Date: 11/12/2018 Generated: 11/15/18 5:24 pm Comments DCP- Discharge Planning Updated by [email or web address]: Diego Chaney on 11/15/18 3:[address] Patient Name: JAMES FELTON Encounter No: [id number] : 1955 Primary Insurance: [employer] [employer] MEDICARE ADV Anticipated DC Date: 11-16-2018 Planned Disposition: Home with Home Health External Planned Provider: NO PROVIDER PREFERENCE DCP follow-up note: CM MET WITH PT IN ROOM TO DISCUSS ORDER RECEIVED FOR INPATIENT REHAB PRESCREENING. CM DISCUSSED REHAB OPTIONS, LOCATIONS AND PROVIDERS. PT NOW WANTS HOME HEALTH FOR PHYSICAL THERAPY AT HOME. CM GAVE PT PROVIDER LISTING, PT HAS NO PROVIDER PREFERENCE, CHOICE SIGNED FOR NO PROVIDER PREFERNECE. PT STATES THE DOCTOR TOLD HIM THEY HAVE TO DO MORE WITH HIS KNEE BEFORE GOING HOME. CM EXPLAINED THAT HOME HEALTH WILL BE ARRANGED WITH PHYSICIAN ORDER AND ASKED THAT PT NOTIFY CM IF THERE IS ANY FURTHER CHANGES IN PLAN. PT REPORTS FAMILY WILL PICK HIM UP FOR DISCHARGE HOME. PT REFUSED INPATIENT REHAB, SNF FACILITY REHAB AND REPORTS HE WILL ACCEPT HOME HEALTH FOR PHSYCIAL THERAPY FOR DISCHARGE HOME. CM TO ARRANGE HOME HEALTH WITH ANY ACCEPTING PROVIDER WITH PHYSICIAN AGREEMENT AND ORDERS. DANIELA Alejo DCP- Discharge Planning Updated by [id number]: Diego Chaney on 11/14/18 11:[address] Patient Name: JAMES FELTON Encounter No: [id number] : 1955 Primary Insurance: [employer] MEDICARE ADV Anticipated DC Date: 11-14-2018 Planned Disposition: Home DCP follow-up note: CM MET WITH PT IN ROOM TO DISCUSS DISCHARGE NEEDS AND PLANNING. CM DISCUSSED AVAILABILITY OF HOME HEALTH, REHAB SERVICES AND MEDICAL EQUIPMENT. PT DENIES DISCHARGE NEEDS WITH CONTINUED PLAN TO RETURN HOME AT DISCHARGE. CM DISCUSSED PT'S KNEE PAIN AND THERAPY NOTE INDICATING YESTERDAY THAT PT WAS IN TOO MUCH PAIN TO WALK, DISCUSSED REHAB OPTIONS WELL HOME HEALTH AGAIN. PT STATES HE REALLY NEEDS TO GET HOME TO HELP HIS , HE DOES NOT WANT ANYONE IN THE HOUSE BECAUSE IT IS SUCH A MESS. PT STATES HE WAS ABLE TO WALK [facility] [address] WITH THERAPY TODAY. PT REPORTS HIS SPOUSE TO TRANSPORT HOME AT DISCHARGE. IMPORTANT MESSAGE FROM MEDICARE PROVIDED AND EXPLAINED. CM TO FOLLOW AND ASSIST NEEDED. Diego Chaney, CASE MANAGEMENT DCP- Discharge Planning Updated by [id number]: Diego Chaney on 11/12/18 2:[address] Patient Name: JAMES FELTON Admission Status: ER Accout number: [id number] Admission Date: 11-10-2018 : 1955 Admission Diagnosis:CHEST PAIN, UNSPECIFIED Attending: GRUPO DIAL Current LOS: 2 Anticipated DC Date: 11-12-2018 Planned Disposition: Home Primary Insurance: [employer] MEDICARE ADV Discharge Planning Comments: CM MET WITH PT IN ROOM TO DISCUSS DISCHARGE PLANNING AND NEEDS. PT REPORTS LIVING AT HOME INDEPENDENTLY WITH HIS . PT HAS NO MEDICAL EQUIPMENT AND NO OUTSIDE SERVICES ASSISTING IN THE HOME. CM DISCUSSED AVAILABILITY OF HOME HEALTH, REHAB SERVICES AND MEDICAL EQUIPMENT. PT DENIES DISCHARGE NEEDS, REPORTS HIS OR SISTER IN LAW WILL PICK HIM UP FOR DISCHARGE HOME. PT REPORTS HAVING SOME LEG PAIN FROM THE HEART CATHETER SIGHT IN HIS GROIN, ASKED ABOUT GETTING A NEW CANE. CM EXPLAINED INSURANCE DOES NOT PAY FOR A CANE; CM DISCUSSED HAVING THERAPY ORDERED TO WALK PATIENT, PT DECLINED AND STATES IF HE NEEDS A CANE, HE HAS A CANE AND WALKER FROM HIS AT HOME HE WOULD USE. PT DENIES DISCHARGE NEEDS AT THIS TIME. PT PLANS TO DISCHARGE HOME WITH SPOUSE, FAMILY TO TRANSPORT HOME, NO ANTICIPATED DISCHARGE NEEDS AT THIS TIME. CM TO FOLLOW AND ASSIST IF NEEDED. Surgery Teacher: Diego Chaney DCPIA - Discharge Planning Initial Assessment Updated by [id number]: Diego Chaney on 11/12/18 2:58 pm * Is the patient Alert and Oriented? Yes * How many steps to enter\exit or inside your home? RAMP * PCP DR. MURO * Pharmacy [facility] ON [address] * Preadmission Environment Home with Family * ADLs Independent * Equipment None * Other Equipment NO MEDICAL EQUIPMENT PROVIDER PREFERENCE * List name and contact numbers for known caregivers / representatives who currently or will assist patient after discharge: SANJUANA FELTON, SPOUSE, * Verbal permission to speak to the caregivers and representatives has been obtained from the patient. N/A * Community resources currently utilized None * Please name any agencies selected above. NONE * Additional services required to return to the preadmission environment? No * Can the patient safely return to the preadmission environment? Yes * Has this patient been hospitalized within the prior 30 days at any hospital? No Coverage Notice Reviewer: [email or web address] Chaney Notice Issued Date-Time: 11/14/2018 12:00 Notice Type: IM Discharge Notice Notice Delivered To: Patient Relationship to Patient: Fashion Consultant Name: Delivery Method: HAND - Hand Delivered Marilu Days: Prior Verbal Notification: Recipient Understood Notice: Yes Recipient Signature: Yes Med Rec Note Co-signed by Attending: Coverage Notice Comment: Reviewer: KACIE Chaney Notice Issued Date-Time: 11/15/2018 15:15 Notice Type: Patient Choice Letter Notice Delivered To: Patient Relationship to Patient: Fashion Consultant Name: Delivery Method: HAND - Hand Delivered Marilu Days: Prior Verbal Notification: Recipient Understood Notice: Yes Recipient Signature: Yes Med Rec Note Co-signed by Attending: Coverage Notice Comment: NO HOME HEALTH PROVIDER CHOICE Last DP export: 11/15/18 3:16 pm Patient Name: JAMES FELTON Page [id number] at 1625 All edits/amendments must be made on the electronic document DICTATION DATE: 11/15/181623 VALVE REPAIRER RECLAMATION: CHE 11/15/18 1624 RPT#: [id number] [place] DATE: STATUS: ADM IN [facility] [address] [place] [address] END OF REPORT
[2018-11-15 17:11] VITALS: BP 128/56
--- NOTE | 2018-11-15 19:26 | NUR ---
ASSESSMENT COMPLETE. PT A&O. RESPERATIONS EVEN ON RA. IV TO LEFT HAND SL. RIGHT KNEE SLIGHTLY SWOLLEN, ELEVATED ON PILLOW. PT CURRENTLY DENIES NEEDS AT THIS TIME, BED LOW, CL IN REACH.
--- NOTE | 2018-11-15 20:18 | NUR ---
HS MEDS GIVEN WITH FRESH ICE WATER. NORCO 1 TAB GIVEN FOR C/O.
[2018-11-15 20:22] VITALS: BP 125/76
--- NOTE | 2018-11-15 21:22 | NUR ---
Rehab Note- Acute Inpatient Rehab prescreen order received. The patient has [employer] insurance and would require a PreAuth prior to an acute inpatient rehab stay. Per KMI Cordova- the patient declines wanting an acute inpatient rehab stay & wants to discharge home when medically stable. Thank you for this referral! Alla Rucker RN Clinical Liaison, [facility] Rehab
--- NOTE | 2018-11-15 21:26 | NUR ---
PT UP TO SHOWER WITH SHOWER CHAIR. SAP DEVELOPER AT BED SIDE, LINENS CHANGED.
--- NOTE | 2018-11-15 22:54 | NUR ---
OT NOTE: PT OCMPLETED BED MOB AND EOB SITTING BALANCE WITH SPV. PT COMPLETED FACE WASHING WITH SET UP. PT COMPLETED BUE AROM EXS. THANK YOU, KEVIN ALBRIGHT
[2018-11-16] VITALS (7 sets, daily range): BP systolic 104–136; BP diastolic 74–88
--- NOTE | 2018-11-16 02:52 | NUR ---
RESTING WITH EYES CLOSED, RESPERATIONS EVEN, NO S/S DISTRESS NOTED.
--- NOTE | 2018-11-16 03:02 | NUR ---
I have reviewed this patient and I concur with the Shift Assessment completed by the Licensed Practical Nurse today this shift.
[2018-11-16 06:05] LABS: BASOPHILS 0.1 % (0-2); EOSINOPHILS 6.2 % (0-7); HEMATOCRIT 38.4 % (42.0-54.0); HEMOGLOBIN 13.4 g/dL (13.5-17.5); IMMATURE GRANULOCYTES 0.4 % (0-5); MCH 33.1 pg (26.0-34.0); MCHC 34.9 g/dL (31.0-37.0); MCV 94.8 fL (80.0-100.0); MEAN PLATELET VOLUME 9.5 fL (7.4-10.4); MONOCYTES 9.7 % (2-11); NEUTROPHILS 56.6 % (40-80); RBC 4.05 10x6/uL (4.20-6.10); WBC 7.1 10x3/uL (4.8-10.8)
[2018-11-16 06:14] LABS: PLATELET COUNT 221 10x3/uL (130-400)
[2018-11-16 06:28] LABS: CALC OSMOLALITY 276 mosm/kg (275-300); CALCIUM 9.2 mg/dL (8.5-10.1); CARBON DIOXIDE 29.1 mmol/L (21.0-32.0); CHLORIDE - SERUM 102 mmol/L (98-107); CREATININE - SERUM 0.9 mg/dL (0.6-1.3); GLUCOSE 100 mg/dL (74-106); POTASSIUM - SERUM 4.5 mmol/L (3.5-5.1); SODIUM 137 mmol/L (136-145); eGFR NON AFRICAN AMERICAN > 90 mL/min (90-120)
[2018-11-16 06:29] LABS: UREA NITROGEN 20 mg/dL (7-18)
--- NOTE | 2018-11-16 08:30 | NUR ---
RESUMING PT CARE, PT SITTING UP IN BED ALERT AND ORIENTED X4. CALL LIGHT IN REACH, WILL CONTINUE TO MONITOR AND FOLLOW PLAN OF CARE.
--- NOTE | 2018-11-16 09:28 | NUR ---
PT UP WALKING WITH PT, DID WELL, NOW IN BED. CALL LIGHT IN REACH, WILL CONTINUE TO MONITOR AND FOLLOW PLAN OF CARE.
--- NOTE | 2018-11-16 09:35 | NUR ---
PT HAS BILATERAL DIMINISHED LUNG SOUNDS IN LOWER LOBES, BASIC SPIROMETER GIVEN, PT DEMONSTRATES GOOD EFFORT UP TO 2500. CALL LIGHT IN REACH, WILL CONTINUE TO MONITOR.
--- NOTE | 2018-11-16 12:02 | NUR ---
I have reviewed this patient and I concur with the Shift Assessment completed by the Licensed Practical Nurse today this shift.
--- NOTE | 2018-11-16 15:50 | NUR ---
D/C ORDER CANCELED BY KATALINA CHEATHAM APRN DUE TO DR MONSALVE NOT READY TO D/C PT. ORDER NOTED. PT NOTIFIED.
--- NOTE | 2018-11-16 21:53 | NUR ---
INITIAL ROUNDS COMPLETED AT 1915 HRS. PT VERY UPSET ABOUT HIS CARE DURING THE DAY. STATED HE ASKED FOR PAIN MEDS AND MIRALAX A FEW HOURS AGO AND STILL HAD NOT RECEIVED THEM. MIRALAX AND NORCO 10/325 PO GIVEN AT 1930 HRS. ASSESSMENT COMPLETED AT 2020 HRS. VSS. SR PER CM 73. IV TO L HAND SL. ALERT AND ORIENTED TO PERSON,PLACE AND TIME. [place]. LUNGS DIMINISHED IN BASES BILAT. SLIGHT SWELLING TO R KNEE AND LOWER LEG NOTED. PT ALSO HAS C/O INTERMITTENT LL ABD PAIN. MYLICON GIVEN WITH PM MEDS. PT CURRENTLY WATCHING TV. SR UP X2, CALL LIGHT WITHIN REACH.
--- NOTE | 2018-11-17 01:38 | NUR ---
PT WATCHING TV, NO DISTRESS NOTED. CALL LIGHT WITHIN REACH.
--- NOTE | 2018-11-17 03:12 | NUR ---
I have reviewed this patient and I concur with the Shift Assessment completed by the Licensed Practical Nurse today this shift.
--- NOTE | 2018-11-17 04:15 | NUR ---
PT RETING WITH EYES CLOSED. RESP EVEN AND REGULAR. SR UP X2, CALL LIGHT WITHIN REACH.
--- NOTE | 2018-11-17 06:13 | NUR ---
VSS THROUGHOUT NIGHT. SR PER CM. PT STATES NORCO HELPS IS CHRONIC BACK PAIN. NEEDS MET;WILL CONTINUE TO MONITOR.
[2018-11-17 06:19] LABS: BASOPHILS 0.3 % (0-2); EOSINOPHILS 5.8 % (0-7); HEMATOCRIT 41.2 % (42.0-54.0); HEMOGLOBIN 14.3 g/dL (13.5-17.5); IMMATURE GRANULOCYTES 0.7 % (0-5); LYMPHOCYTES 40.4 % (15-50); MCH 33.4 pg (26.0-34.0); MCHC 34.7 g/dL (31.0-37.0); MCV 96.3 fL (80.0-100.0); MEAN PLATELET VOLUME 9.3 fL (7.4-10.4); MONOCYTES 10.4 % (2-11); NEUTROPHILS 42.4 % (40-80); PLATELET COUNT 239 10x3/uL (130-400); RBC 4.28 10x6/uL (4.20-6.10); RDW 13.2 % (11.5-14.5)
--- NOTE | 2018-11-17 07:30 | NUR ---
RECIEVE REPORT. PATIENT RESTING IN BED WITH EYES CLOSED. RESPIRATIONS EVEN AND REGULAR. NO SIGNS OF DISTRESS. SINUS RHYTHM 61 ON TELEMETRY. CONTINUE PLAN OF CARE AND SAFETY PRECAUTIONS.
[2018-11-17 07:41] LABS: CALC OSMOLALITY 279 mosm/kg (275-300); CALCIUM 9.4 mg/dL (8.5-10.1); CARBON DIOXIDE 29.3 mmol/L (21.0-32.0); CHLORIDE - SERUM 102 mmol/L (98-107); GLUCOSE 107 mg/dL (74-106); SODIUM 139 mmol/L (136-145); UREA NITROGEN 17 mg/dL (7-18); eGFR NON AFRICAN AMERICAN 80 mL/min (90-120)
[2018-11-17 07:59] VITALS: BP 128/84
[2018-11-17 11:57] VITALS: BP 147/81
--- NOTE | 2018-11-17 13:57 | NUR ---
OT NOTE: PT COMPLETED HYGIENE TASKS WITH SET UP. PT COMPLETED BED MOB WITH SPV. PT OCMPLETED UE AROM AXS. THANK YOU, KEVIN HODGES
--- NOTE | 2018-11-17 16:09 | NUR ---
ALERT AND ORIENTED X4. OK TO DC PER . DISCHARGE INSTRUCTIONS GIVEN VERBALLY AND WRITTEN. DISCHARGE PAPERS SIGNED ON CHART. WAITING FOR RIDE TO ARRIVE. DC LT HAND IV TIP INTACT. CONTINUE PLAN OF CARE AND SAFETY PRECAUTIONS.
--- NOTE | 2018-11-17 18:27 | NUR ---
RIDE ARRIVES. ESCORT TO RIDE VIA WHEELCHAIR. REMAINS FREE FROM INJURY.
--- NOTE | 2018-11-17 19:32 | MORECARE ---
CASE MANAGEMENT DISCHARGE SUMMARY PATIENT: JAMES FELTON UNIT: [id number] ADM DATE: 11/10/18 AGE: 63 : 55 SEX: M ROOM/BED: D.7630 AUTHOR: LEANDRO SWAIN PHYSICIAN: REFERRING PHYSICIAN: GRUPO DIAL MD DATE OF SERVICE: 11/17/18 Discharge Plan Patient Name: JAMES FELTON Facility: [facility]:[place] : 1955 Planned Disposition: Home with Home Health Anticipated Discharge Date: 11/16/18 Discharge Date: 11/17/2018 Expected LOS: 6 Initial Reviewer: [email or web address] Initial Review Date: 11/12/2018 Generated: 11/17/18 8:31 pm Comments DCP- Discharge Planning Updated by [email or web address]: Diego Chaney on 11/15/18 3:[address] Patient Name: JAMES FELTON Encounter No: [id number] : 1955 Primary Insurance: [employer] MEDICARE ADV Anticipated DC Date: 11-16-2018 Planned Disposition: Home with Home Health External Planned Provider: NO PROVIDER PREFERENCE DCP follow-up note: CM MET WITH PT IN ROOM TO DISCUSS ORDER RECEIVED FOR INPATIENT REHAB PRESCREENING. CM DISCUSSED REHAB OPTIONS, LOCATIONS AND PROVIDERS. PT NOW WANTS HOME HEALTH FOR PHYSICAL THERAPY AT HOME. CM GAVE PT PROVIDER LISTING, PT HAS NO PROVIDER PREFERENCE, CHOICE SIGNED FOR NO PROVIDER PREFERNECE. PT STATES THE DOCTOR TOLD HIM THEY HAVE TO DO MORE WITH HIS KNEE BEFORE GOING HOME. CM EXPLAINED THAT HOME HEALTH WILL BE ARRANGED WITH PHYSICIAN ORDER AND ASKED THAT PT NOTIFY CM IF THERE IS ANY FURTHER CHANGES IN PLAN. PT REPORTS FAMILY WILL PICK HIM UP FOR DISCHARGE HOME. PT REFUSED INPATIENT REHAB, LONGTERM FACILITY REHAB AND REPORTS HE WILL ACCEPT HOME HEALTH FOR PHSYCIAL THERAPY FOR DISCHARGE HOME. CM TO ARRANGE HOME HEALTH WITH ANY ACCEPTING PROVIDER WITH PHYSICIAN AGREEMENT AND ORDERS. DANIELA Alejo DCP- Discharge Planning Updated by [email or web address]: Diego Chaney on 11/14/18 11:[address] Patient Name: JAMES FELTON Encounter No: [id number] : 1955 Primary Insurance: [employer] MEDICARE ADV Anticipated DC Date: 11-14-2018 Planned Disposition: Home DCP follow-up note: CM MET WITH PT IN ROOM TO DISCUSS DISCHARGE NEEDS AND PLANNING. CM DISCUSSED AVAILABILITY OF HOME HEALTH, REHAB SERVICES AND MEDICAL EQUIPMENT. PT DENIES DISCHARGE NEEDS WITH CONTINUED PLAN TO RETURN HOME AT DISCHARGE. CM DISCUSSED PT'S KNEE PAIN AND THERAPY NOTE INDICATING YESTERDAY THAT PT WAS IN TOO MUCH PAIN TO WALK, DISCUSSED REHAB OPTIONS WELL HOME HEALTH AGAIN. PT STATES HE REALLY NEEDS TO GET HOME TO HELP HIS , HE DOES NOT WANT ANYONE IN THE HOUSE BECAUSE IT IS SUCH A MESS. PT STATES HE WAS ABLE TO WALK RESIDENTIAL DOWN THE [place] WITH THERAPY TODAY. PT REPORTS HIS SPOUSE TO TRANSPORT HOME AT DISCHARGE. IMPORTANT MESSAGE FROM MEDICARE PROVIDED AND EXPLAINED. CM TO FOLLOW AND ASSIST NEEDED. Diego Chaney, CASE MANAGEMENT DCP- Discharge Planning Updated by [id number]: Diego Chaney on 11/12/18 2:[address] Patient Name: JAMES FELTON Admission Status: ER Accout number: [id number] Admission Date: 11-10-2018 : 1955 Admission Diagnosis:CHEST PAIN, UNSPECIFIED Attending: GRUPO DIAL Current LOS: 2 Anticipated DC Date: 11-12-2018 Planned Disposition: Home Primary Insurance: [employer] MEDICARE ADV Discharge Planning Comments: CM MET WITH PT IN ROOM TO DISCUSS DISCHARGE PLANNING AND NEEDS. PT REPORTS LIVING AT HOME INDEPENDENTLY WITH HIS . PT HAS NO MEDICAL EQUIPMENT AND NO OUTSIDE SERVICES ASSISTING IN THE HOME. CM DISCUSSED AVAILABILITY OF HOME HEALTH, REHAB SERVICES AND MEDICAL EQUIPMENT. PT DENIES DISCHARGE NEEDS, REPORTS HIS OR SISTER IN LAW WILL PICK HIM UP FOR DISCHARGE HOME. PT REPORTS HAVING SOME LEG PAIN FROM THE HEART CATHETER SIGHT IN HIS GROIN, ASKED ABOUT GETTING A NEW CANE. CM EXPLAINED INSURANCE DOES NOT PAY FOR A CANE; CM DISCUSSED HAVING THERAPY ORDERED TO WALK PATIENT, PT DECLINED AND STATES IF HE NEEDS A CANE, HE HAS A CANE AND WALKER FROM HIS AT HOME HE WOULD USE. PT DENIES DISCHARGE NEEDS AT THIS TIME. PT PLANS TO DISCHARGE HOME WITH SPOUSE, FAMILY TO TRANSPORT HOME, NO ANTICIPATED DISCHARGE NEEDS AT THIS TIME. CM TO FOLLOW AND ASSIST IF NEEDED. Mentally Retarded Teacher: Diego Chaney DCPIA - Discharge Planning Initial Assessment Updated by [email or web address]: Diego Chaney on 11/12/18 2:58 pm * Is the patient Alert and Oriented? Yes * How many steps to enter\exit or inside your home? RAMP * PCP DR. MURO * Pharmacy [facility] ON [address] * Preadmission Environment Home with Family * ADLs Independent * Equipment None * Other Equipment NO MEDICAL EQUIPMENT PROVIDER PREFERENCE * List name and contact numbers for known caregivers / representatives who currently or will assist patient after discharge: SANJUANA FELTON, SPOUSE, * Verbal permission to speak to the caregivers and representatives has been obtained from the patient. N/A * Community resources currently utilized None * Please name any agencies selected above. NONE * Additional services required to return to the preadmission environment? No * Can the patient safely return to the preadmission environment? Yes * Has this patient been hospitalized within the prior 30 days at any hospital? No Coverage Notice Reviewer: [email or web address] Jarrett Chaney Notice Issued Date-Time: 11/14/2018 12:00 Notice Type: IM Discharge Notice Notice Delivered To: Patient Relationship to Patient: Historian Dramatic Arts Name: Delivery Method: HAND - Hand Delivered Marilu Days: Prior Verbal Notification: Recipient Understood Notice: Yes Recipient Signature: Yes Med Rec Note Co-signed by Attending: Coverage Notice Comment: Reviewer: KACIE Chaney Notice Issued Date-Time: 11/15/2018 15:15 Notice Type: Patient Choice Letter Notice Delivered To: Patient Relationship to Patient: Historian Dramatic Arts Name: Delivery Method: HAND - Hand Delivered Marilu Days: Prior Verbal Notification: Recipient Understood Notice: Yes Recipient Signature: Yes Med Rec Note Co-signed by Attending: Coverage Notice Comment: NO HOME HEALTH PROVIDER CHOICE Reviewer: [id number] Jarrett Means Notice Issued Date-Time: 11/17/2018 13:45 Notice Type: IM Discharge Notice Notice Delivered To: Patient Relationship to Patient: Self Historian Dramatic Arts Name: Delivery Method: HAND - Hand Delivered Marilu Days: Prior Verbal Notification: Recipient Understood Notice: Yes Recipient Signature: Yes Med Rec Note Co-signed by Attending: Coverage Notice Comment: Last DP export: 11/15/18 3:24 pm Patient Name: JAMES FELTON Page [id number] at 1932 All edits/amendments must be made on the electronic document DICTATION DATE: 11/17/181930 SLOT ATTENDANT: CHE 11/17/181930 RPT#: [id number] DC DATE:11/17/18 STATUS: DIS IN [facility] [address] [place] [address] END OF REPORT
[2018-11-18 12:10] LABS: FUNGUS STAIN Final report (())
[2018-12-13 13:08] LABS: FUNGUS MYCOLOGY CULTURE Final report (())
== END 2018-11-17 18:27 | disposition home health service (06) | DRG 287 ==
LOC: D.ER 15:18 → D.ICU 16:55 → D.M2 16:55
PROVIDERS: Emergency Medicine; Internal Medicine Cardiovascular Disease; Internal Medicine Nephrology; Orthopaedic Surgery; ADMIT Family Medicine; ATTEND Family Medicine
PROC: B2151ZZ Fluoroscopy of Left Heart using Low Osmolar Contrast (ICD-10-PCS; 2018-11-11)
PROC: 4A023N7 Measurement of Cardiac Sampling and Pressure, Left Heart, Percutaneous Approach (ICD-10-PCS; 2018-11-11)
PROC: B2111ZZ Fluoroscopy of Multiple Coronary Arteries using Low Osmolar Contrast (ICD-10-PCS; principal; 2018-11-11 10:30)
DX: R07.89 Other chest pain (principal); Q24.5 Malformation of coronary vessels; R00.1 Bradycardia, unspecified; I25.10 Atherosclerotic heart disease of native coronary artery without angina pectoris; I10 Essential (primary) hypertension; I48.0 Paroxysmal atrial fibrillation; J44.9 Chronic obstructive pulmonary disease, unspecified; F32.9 Major depressive disorder, single episode, unspecified; F41.9 Anxiety disorder, unspecified; E83.42 Hypomagnesemia; K21.9 Gastro-esophageal reflux disease without esophagitis

== ENCOUNTER 2018-12-05 23:54 | Observation (INO) | payer MEDICARE ==
[~2018-12-05 23:54] MED LIST changes: +ANTIDEPRESSANT; +LEXAPRO10 MG PO; +[UNRECOGNIZED DRUG - OTHER]
[2018-12-06] VITALS (7 sets, daily range): BP systolic 98–125; BP diastolic 57–77
[2018-12-06 00:29] LABS: BASOPHILS 0.2 % (0-2); HEMATOCRIT 41.4 % (42.0-54.0); HEMOGLOBIN 14.5 g/dL (13.5-17.5); IMMATURE GRANULOCYTES 0.3 % (0-5); LYMPHOCYTES 42.3 % (15-50); MCH 33.2 pg (26.0-34.0); MCV 94.7 fL (80.0-100.0); MEAN PLATELET VOLUME 9.1 fL (7.4-10.4); NEUTROPHILS 46.2 % (40-80); PLATELET COUNT 258 10x3/uL (130-400); RBC 4.37 10x6/uL (4.20-6.10); WBC 10.1 10x3/uL (4.8-10.8)
[2018-12-06 00:32] LABS: APTT 25.3 SECONDS (22.8-39.4); INR 1.02 (0.85-1.17); PROTIME 12.9 SECONDS (11.6-15.0)
[2018-12-06 00:40] LABS: ALBUMIN 3.5 g/dL (3.4-5.0); ALKALINE PHOSPHATASE 66 U/L (46-116); ALT (SGPT) 31 U/L (10-68); BILIRUBIN - TOTAL 0.25 mg/dL (0.2-1.3); CALC OSMOLALITY 279 mosm/kg (275-300); CALCIUM 8.7 mg/dL (8.5-10.1); CARBON DIOXIDE 27.6 mmol/L (21.0-32.0); CHLORIDE - SERUM 103 mmol/L (98-107); CREATININE - SERUM 1.1 mg/dL (0.6-1.3); GLUCOSE 119 mg/dL (74-106); POTASSIUM - SERUM 3.8 mmol/L (3.5-5.1); PROTEIN - SERUM 6.9 g/dL (6.4-8.2); SODIUM 139 mmol/L (136-145); UREA NITROGEN 16 mg/dL (7-18); eGFR NON AFRICAN AMERICAN 72 mL/min (90-120)
[2018-12-06 00:52] LABS: CKMB 0.6 U/L (0.0-3.6); CREATINE KINASE 65 UL (21-232); LIPASE 212 U/L (73-393); MAGNESIUM - SERUM 1.6 mg/dL (1.8-2.4); PRO BNP 405 pg/mL (0-125); THYROID STIMULATING HORMONE 2.92 uIU/mL (0.36-3.74); TROPONIN-I < 0.017 ng/mL (0.000-0.060)
--- NOTE | 2018-12-06 07:40 | NUR ---
ASSESSMENT DONE. DENIES NEEDS
--- NOTE | 2018-12-06 12:51 | NUR ---
I have reviewed this patient and I concur with the Shift Assessment completed by the Licensed Practical Nurse today this shift.
--- NOTE | 2018-12-06 16:42 | NUR ---
REFUSED BATH X 4. WITHOUT CHANGES OR DISTRESS NOTED AT THIS TIME. DENIES NEEDS
--- NOTE | 2018-12-06 19:15 | NUR ---
RECEIVED REPORT, WILL ASSUME CARE OF PT, PT IS A&O, ASKING FOR A DRINK(PROVIDE), DENIES ANY OTHER NEEDS AT THIS TIME, BED IS LOW, SRX2, CALL LIGHT IN REACH, WILL CONTINUE PLAN OF CARE
[2018-12-06 19:28] LABS: UDS - AMPHET NEGATIVE QUAL (NEGATIVE); UDS - BARB NEGATIVE QUAL (NEGATIVE); UDS - BENZO NEGATIVE QUAL (NEGATIVE); UDS - COCAINE NEGATIVE QUAL (NEGATIVE); UDS - OPIATE POSITIVE QUAL (NEGATIVE); UDS - PCP NEGATIVE QUAL (NEGATIVE); UDS - THC POSITIVE QUAL (NEGATIVE)
--- NOTE | 2018-12-06 22:07 | NUR ---
PT AT NURSES STATION TO GET SOME COFFEE
[2018-12-07] VITALS: BP 114/60
--- NOTE | 2018-12-07 03:24 | NUR ---
I have reviewed this patient and I concur with the Shift Assessment completed by the Licensed Practical Nurse today this shift.
[2018-12-07 04:00] VITALS: BP 131/79
--- NOTE | 2018-12-07 07:38 | NUR ---
ALERT AND ORIENTED. 02 AT 2 L/M PER NC. TELEMERTY SHOWS SB 56. LEFT AC SL, PATENT. SR UP WITH CALL LIGHT IN REACH. NO NEEDS VOICED. WILL MONITOR
[2018-12-07 08:02] VITALS: BP 131/79; BMI 25.1
[2018-12-07 08:13] VITALS: BP 130/76
--- NOTE | 2018-12-07 09:08 | HP ---
PATIENT: JAMES FELTON MEDICAL RECORD: [id number] ACCOUNT: [id number] LOCATION:.[facility].2118 : 55 ADMISSION DATE: 12/06/18 PCP: PATRICK MURO MD HISTORY AND PHYSICAL EXAMINATION ADMITTING DIAGNOSES: 1. Angina. 2. Coronary artery disease. 3. Previous percutaneous transluminal coronary angioplasty stent. 4. Shortness of breath, dyspnea on exertion. 5. Paroxysmal atrial fibrillation. 6. Palpitations. 7. Hyperlipidemia. HISTORY OF PRESENT ILLNESS: Mr. Felton is known to us with a past history of coronary artery disease, previous PTCA stent of the RCA. He underwent cardiac catheterization last week when he was in with similar. This revealed wide patency of the stents in the RCA, no disease elsewise. He has been having episodes of atrial fibrillation. He was initially on sotalol 80 mg b.i.d. He had another breakthrough episode of atrial fibrillation on this. He was increased to 120 mg t.i.d. He had bradycardia with this and then was decreased to 60 mg b.i.d. He has presented with atrial fibrillation last night. He received 180 mg sotalol. He is back in rhythm now. PHYSICAL EXAMINATION: GENERAL APPEARANCE: Well-nourished, well-developed, appears stated age. Level of distress, comfortable. PSYCHIATRIC: Mental status, alert, normal affect. Orientation, oriented to time, place and person. EYES: Lids and conjunctiva, noninjected. No discharge, no pallor. ENT: Lips, teeth, gums, normal dentition. Oropharynx, no cyanosis, no pallor. NECK: Carotid arteries, bilateral normal upstroke, no bruits, no thrills. JUGULAR VEINS: No jugular venous pressure or distention. CERVICAL LYMPH NODES: Nontender, nonenlarged. THYROID: Not enlarged. Nontender. No nodules. LUNGS: Respiratory effort, unlabored. CHEST: Normal curvature. No thoracic deformity. No chest wall tenderness. Percussion, resonant. Auscultation, clear. No wheezes, no rales, no rhonchi. CARDIOVASCULAR: Precordial exam, nondisplaced. No heaves or pericardial thrills. Rate and rhythm, regular. Heart sounds, normal S1, normal S2. No S3, no gallop, no rub. Systolic murmur, not heard. Diastolic murmur, not heard. EXTREMITIES: No cyanosis, no edema. Peripheral pulses, full and equal in all extremities, except as noted. No bruits appreciated. ABDOMEN: Soft, nondistended. Normal aorta. No bruit. Nontender. No masses. Liver, nontender, no hepatomegaly. Spleen, nontender, no splenomegaly. MUSCULOSKELETAL: No joint tenderness. No joint swelling. No erythema. NEUROLOGICAL: Normal gait, normal strength, normal tone. SKIN: Warm and dry. OVERALL IMPRESSION: Atrial fibrillation. At this time, no need for repeat cardiac catheterization. We will try the sotalol at 80 mg b.i.d. If he has breakthroughs with this, would add diltiazem to his medical regimen or digoxin, but leave the sotalol at 80 mg b.i.d. If he remains in sinus rhythm today, I can get him out later today with a close followup. HISTORY AND PHYSICAL [id number] PURNIMAJAMES TRANSINT:[id number] Voice Confirmation ID: [id number] DOCUMENT ID: [id number] XAVIER SEGUNDO MD at 0908 CC: [id number] DICTATION DATE: 12/06/18 0949 SUPERVISOR TAPING: 12/06/18 1031 ADM IN [id number] [place] [address]
[2018-12-07] MEDS ORDERED: BETAPACE 80 MG80 MG PO (09:09)
--- NOTE | 2018-12-07 11:00 | NUR ---
I have reviewed this patient and I concur with the Shift Assessment completed by the Licensed Practical Nurse today this shift.
--- NOTE | 2018-12-07 11:42 | NUR ---
PT DISCHARGED. IV DCD WITH TIP INTACT. INSTRUCTIONS GIVEN TO PT AND FAMILY. TO PRIVATE CAR PER WHEELCHAIR
--- NOTE | 2018-12-09 08:37 | MORECARE ---
CASE MANAGEMENT DISCHARGE SUMMARY PATIENT: JAMES FELTON UNIT: [id number] ADM DATE: 12/06/18 AGE: 63 : 55 SEX: M ROOM/BED: D.[facility]8 AUTHOR: LEANDRO SWAIN PHYSICIAN: REFERRING PHYSICIAN: XAVIER SEGUNDO MD DATE OF SERVICE: 12/09/18 Discharge Plan Patient Name: JAMES FELTON [facility] [facility] 1955 Planned Disposition: Home Anticipated Discharge Date: 12/07/18 Discharge Date: 12/07/2018 Expected LOS: 1 Initial Reviewer: [email or web address] Initial Review Date: 12/09/2018 Generated: 12/09/18 9:37 am Coverage Notice Reviewer: [email or web address] Jarrett Hough Notice Issued Date-Time: 12/06/2018 9:40 Notice Type: Medicare Outpatient Observation Notice Notice Delivered To: Patient Relationship to Patient: Self Stiff Straw Hat Washer Name: Delivery Method: HAND - Hand Delivered Marilu Days: Prior Verbal Notification: Recipient Understood Notice: Yes Recipient Signature: Yes Med Rec Note Co-signed by Attending: Coverage Notice Comment: Patient Name: JAMES FELTON Page 13917 at 0837 All edits/amendments must be made on the electronic document DICTATION DATE: 12/09/1836 CLIENT RENEWAL SPECIALIST: CHE 12/09/18 0836 RPT#: [id number] DC DATE:12/07/18 STATUS: DIS IN [id number] [place] [address] END OF REPORT
--- NOTE | 2018-12-09 09:50 | DS ---
PATIENT:JAMES FELTON :55 MEDICAL RECORD: [id number] DISCHARGE SUMMARY ADMISSION DATE: 12/06/18 DISCHARGE DATE: 12/07/18 DISCHARGE DIAGNOSES: 1. Paroxysmal atrial fibrillation. 2. Angina. 3. Coronary artery disease. 4. Previous PTCA and stent. 5. Hyperlipidemia. HOSPITAL COURSE: Mr. Felton presents with anginal symptomatology and atrial fibrillation, found to be going in and out of atrial fibrillation. He was previously on sotalol 60 mg b.i.d., this was increased to 80 mg b.i.d. He had no further atrial fibrillation, no further anginal symptomatology. Discharged home with sotalol to 80 mg b.i.d. Will keep his cardiac followup he already has. TRANSINT:[id number] Voice Confirmation ID: [id number] DOCUMENT ID: [id number] XAVIER SEGUNDO MD at 0950 CC: [id number] DICTATION DATE: 12/07/18909 BATTER DEPOSITOR: 12/07/18 09 DIS IN 12/07/18 [facility] [address] [place] [address]
--- NOTE | 2018-12-09 09:50 | EC ---
PATIENT:JAMES FELTON DATE OF SERVICE: 12/06/18 SEX: M MEDICAL RECORD: [id number] DATE OF : 55 LOCATION:D.M2 D.211 AGE OF PATIENT: 63 ADMISSION DATE: 12/06/18 REFERRING PHYSICIAN: INTERPRETING PHYSICIAN: XAVIER WILBURN MD ECHOCARDIOGRAM REPORT ECHO CHARGES 4 ECHO COMPLETE Date: 12/06/18 CLINICAL DIAGNOSIS: AFR ECHOCARDIOGRAPHIC MEASUREMENTS (adult normal given) AC root (d.<3.7cm) 2.9 cm LV Septum d (<1.2 cm> 1.0 cm Valve Excursion 2.0 cm LV Septum (systole) 1.5 cm Left Atria (s.<4.0cm> 2.8 cm LVPW d(<1.2cm) 0.8 cm RV (d.<2.3cm) 2.7 cm LVPW (sytole) 1.3 cm LV diastole(<5.6CM) 4.4 cm MV E-F(>70mm/sec) cm LV systole 2.9 cm LVOT Diameter 1.5 cm MV exc.(>10mm) cm Est.ejection fraction (50-75%) % DOPPLER: LVIT cm/sec A 70 cm/sec E 78 cm/sec LA cm/sec RVSP 19.4 mmHg LVOT 109 cm/sec AOP1/2T m/s Asc. Ao 111 cm/sec RVOT 68 cm/sec RA cm/sec PA 74 cm/sec AV Gradient Peak 4.9 mmHg AV Mean 2.9 mmHg AV Area 1.6 cm MV Gradient Peak 3.0 mmHg MV Mean 1.3 mmHg MV Area cm COMMENTS: Wire Puller: Mónica LUDWIG Corporate Director Of Pharmacy: 1 Dr. Wilburn TAPE# PACS Pericardial Effusion N DATE OF SERVICE: 12/06/2018 PROCEDURE: Echocardiogram. FINDINGS: 1. Left ventricular chamber size is within normal limits. Left ventricular systolic function is normal. Overall ejection fraction estimated at 60%. 2. Left atrium, right atrium, and right ventricle chamber sizes are within normal limits. 3. Valvular structures: Aortic valve demonstrates calcific aortic sclerosis, ECHOCARDIOGRAM REPORT [id number] JAMES FELTON but no aortic stenosis is present. 4. Doppler interrogation elsewise reveals mild mitral regurgitation, trace tricuspid regurgitation, no other valvular insufficiency or stenosis. Pulmonary systolic pressure is estimated at 19 mmHg. 5. No evidence of pericardial effusion or left ventricular thrombus. TRANSINT:[id number] Voice Confirmation ID: [id number] DOCUMENT ID: [id number] XAVIER WILBURN MD at 0950 CC: [id number] DICTATION DATE: 12/06/18 1424 LATHE MECHANIC: 12/06/18 1525 DIS IN 12/07/18 [place] [id number] [place] [id number]
== END 2018-12-07 11:48 | disposition home or self-care (01) ==
LOC: D.ER 23:54 → OBSVTIME 12-06 00:55 → D.M2 12-06 00:55
PROVIDERS: Family Medicine; ADMIT Internal Medicine Interventional Cardiology; ATTEND Internal Medicine Interventional Cardiology
DX: I48.0 Paroxysmal atrial fibrillation (principal); I25.119 Atherosclerotic heart disease of native coronary artery with unspecified angina pectoris; E78.5 Hyperlipidemia, unspecified; R00.2 Palpitations

== ENCOUNTER 2018-12-26 19:59 | Observation (INO) | payer MEDICARE ==
[~2018-12-26] VITALS: Ht 165.1 cm; Wt 69.1 kg
--- NOTE | ~2018-12-26 | DS ---
PATIENT:JAMES FELTON :55 MEDICAL RECORD: [id number] DISCHARGE SUMMARY ADMISSION DATE: 12/26/18 DISCHARGE DATE: 12/27/18 DIAGNOSES: 1. Paroxysmal atrial fibrillation. 2. Angina. 3. Coronary artery disease. 4. Previous percutaneous transluminal coronary angioplasty stent. 5. Chronic obstructive pulmonary disease. 6. Smoking history. 7. Hyperlipidemia. HOSPITAL COURSE: Mr. Felton presents with recurrent atrial fibrillation. He has had multiple recent episodes of presenting with atrial fibrillation with high-dose sotalol. It does keep him in rhythm; however, he had bradycardia. At this time, we will try to change him to Rythmol 225 b.i.d. If he continues to have bradycardia and needing higher doses, permanent pacemaker want to be considered. TRANSINT:[id number] Voice Confirmation ID: [id number] DOCUMENT ID: [id number] XAVIER SEGUNDO MD CC: [id number] DICTATION DATE: 12/27/18 1124 SURVEY RESEARCH PROFESSOR: 12/27/18 2306 DIS IN 12/27/18 [place] [id number] [place] [id number]
[2018-12-26 20:05] VITALS: Ht 165.1 cm; Wt 69.1 kg
[2018-12-26 20:17] LABS: BASOPHILS 0 % (0-2); EOSINOPHILS 0 % (0-7); HEMATOCRIT 38.7 % (42.0-54.0); HEMOGLOBIN 13.8 g/dL (13.5-17.5); IMMATURE GRANULOCYTES 0.1 % (0-5); LYMPHOCYTES 13.3 % (15-50); MCH 33.7 pg (26.0-34.0); MCHC 35.7 g/dL (31.0-37.0); MCV 94.6 fL (80.0-100.0); MEAN PLATELET VOLUME 8.9 fL (7.4-10.4); MONOCYTES 3.1 % (2-11); NEUTROPHILS 83.5 % (40-80); PLATELET COUNT 248 10x3/uL (130-400); RBC 4.09 10x6/uL (4.20-6.10); RDW 13.2 % (11.5-14.5)
[2018-12-26 20:24] LABS: APTT 26.2 SECONDS (22.8-39.4); INR 1.09 (0.85-1.17); PROTIME 13.6 SECONDS (11.6-15.0)
[2018-12-26 20:29] LABS: ALBUMIN 3.4 g/dL (3.4-5.0); ALKALINE PHOSPHATASE 67 U/L (46-116); ALT (SGPT) 18 U/L (10-68); BILIRUBIN - TOTAL 0.33 mg/dL (0.2-1.3); CALC OSMOLALITY 281 mosm/kg (275-300); CALCIUM 8.3 mg/dL (8.5-10.1); CARBON DIOXIDE 25.9 mmol/L (21.0-32.0); CHLORIDE - SERUM 107 mmol/L (98-107); CREATININE - SERUM 1.1 mg/dL (0.6-1.3); GLUCOSE 169 mg/dL (74-106); POTASSIUM - SERUM 3.8 mmol/L (3.5-5.1); PROTEIN - SERUM 6.7 g/dL (6.4-8.2); SODIUM 141 mmol/L (136-145); UREA NITROGEN 4 mg/dL (7-18); eGFR NON AFRICAN AMERICAN 72 mL/min (90-120)
[2018-12-26 20:40] LABS: CKMB 1.3 U/L (0.0-3.6); CREATINE KINASE 129 UL (21-232); TROPONIN-I < 0.017 ng/mL (0.000-0.060)
[2018-12-26 20:47] VITALS: BP 102/63
--- NOTE | 2018-12-26 22:14 | NUR ---
1ST NITRO ADMINISTERED AT THIS TIME. CP RATED 9/10.
[2018-12-26 22:15] VITALS: BP 113/81
--- NOTE | 2018-12-26 23:00 | NUR ---
RATES CHEST PAIN 3/10 AFTER FIRST NITRO. HELD SECOND NITRO DUE TO BP:100/55
[2018-12-26 23:01] VITALS: BP 100/55
[2018-12-26] MEDS ORDERED: NEURONTIN 300300 MG PO (23:30)
--- NOTE | 2018-12-26 23:41 | NUR ---
PT TO FLOOR VIA WHEELCHAIR. PT A/O X 4. UP AB ZOE. DENIES CHEST PAIN AT THIS TIME. IV TO L AC WITH NS @ 50 CC/HR TRANSFUSING ON ARRIVAL. IV PATENT, DRSG C/D/I. RM AIR. BREATHING EVEN AND UNLABORED. TELE APPLIED, NORMAL SINUS 64. INFORMED PT HE WILL BE NPO ( NOTHING TO EAT OR DRINK AFTER MD) PT AGREED WITH POC. NO FURTHER CONCERNS AT THIS TIME. TALI TRAY PROVIDED. BED LOWERED AND LOCKED. CL IN REACH. WILL CTM.
[2018-12-27 03:13] LABS: CKMB 0.7 U/L (0.0-3.6); CREATINE KINASE 87 UL (21-232); TROPONIN-I < 0.017 ng/mL (0.000-0.060)
[2018-12-27 04:00] VITALS: BP 102/58
--- NOTE | 2018-12-27 05:44 | NUR ---
I have reviewed this patient and I concur with the Shift Assessment completed by the Licensed Practical Nurse today this shift.
[2018-12-27 08:30] VITALS: BP 105/53
[2018-12-27 09:44] LABS: CREATINE KINASE 74 UL (21-232)
[2018-12-27 09:45] LABS: TROPONIN-I < 0.017 ng/mL (0.000-0.060)
[2018-12-27] MEDS ORDERED: RYTHMOL SR225 MG PO (10:19)
[2018-12-27] MEDS ORDERED: PROPAFENONE HC150 MG PO (10:24)
[2018-12-27 10:48] LABS: CREATINE KINASE 78 UL (21-232)
[2018-12-27 10:49] LABS: TROPONIN-I < 0.017 ng/mL (0.000-0.060)
--- NOTE | 2018-12-27 11:27 | NUR ---
ASSESSMENT COMPLETED. ALERT AND ORIENTED. TELEMERTY SHOWS SR. NS INFUSING INTOLEFT AC. UP AB ZOE. WILL MONITOR.
--- NOTE | 2018-12-27 11:36 | NUR ---
PT DCD. IV DCD WITH TIP INTACT. INSTRUCTIONS GIVEN TO PT. AWAITING TRANSPORTATION
--- NOTE | 2018-12-27 13:51 | NUR ---
I have reviewed this patient and I concur with the Shift Assessment completed by the Licensed Practical Nurse today this shift.
--- NOTE | 2018-12-27 16:51 | HP ---
PATIENT: JAMES FELTON MEDICAL RECORD: [id number] ACCOUNT: [id number] LOCATION:D. D.2121 : 55 ADMISSION DATE: 12/26/18 PCP: PATRICK MURO MD HISTORY AND PHYSICAL EXAMINATION ADMITTING DIAGNOSES: 1. Angina. 2. Atrial fibrillation. 3. Coronary artery disease. 4. Previous percutaneous transluminal coronary angioplasty stent. 5. Chronic obstructive pulmonary disease. 6. Smoking history. 7. Hyperlipidemia. HISTORY OF PRESENT ILLNESS: Mr. Felton presents with palpitations, atrial fibrillation and angina. He has had 3 presentations for this in the past 2 weeks. He had a cardiac catheterization 2 weeks ago revealing wide patency of the previously placed stent in the RCA. He has had adjustments of his sotalol dose with high-dose sotalol. He has had bradycardia. He is now on 80 mg b.i.d. of the sotalol, had a breakthrough episode soon after he got here; however, he converted to sinus rhythm. PHYSICAL EXAMINATION: GENERAL APPEARANCE: Well-nourished, well-developed, appears stated age. Level of distress, comfortable. PSYCHIATRIC: Mental status, alert, normal affect. Orientation, oriented to time, place and person. EYES: Lids and conjunctiva, noninjected. No discharge, no pallor. ENT: Lips, teeth, gums, normal dentition. Oropharynx, no cyanosis, no pallor. NECK: Carotid arteries, bilateral normal upstroke, no bruits, no thrills. JUGULAR VEINS: No jugular venous pressure or distention. CERVICAL LYMPH NODES: Nontender, nonenlarged. THYROID: Not enlarged. Nontender. No nodules. LUNGS: Respiratory effort, unlabored. CHEST: Normal curvature. No thoracic deformity. No chest wall tenderness. Percussion, resonant. Auscultation, clear. No wheezes, no rales, no rhonchi. CARDIOVASCULAR: Precordial exam, nondisplaced. No heaves or pericardial thrills. Rate and rhythm, regular. Heart sounds, normal S1, normal S2. No S3, no gallop, no rub. Systolic murmur, not heard. Diastolic murmur, not heard. EXTREMITIES: No cyanosis, no edema. Peripheral pulses, full and equal in all extremities, except as noted. No bruits appreciated. ABDOMEN: Soft, nondistended. Normal aorta. No bruit. Nontender. No masses. Liver, nontender, no hepatomegaly. Spleen, nontender, no splenomegaly. MUSCULOSKELETAL: No joint tenderness. No joint swelling. No erythema. NEUROLOGICAL: Normal gait, normal strength, normal tone. SKIN: Warm and dry. OVERALL IMPRESSION: Recurrent atrial fibrillation. At this time, we will try to adjust his sotalol dose, possibly change to Rythmol, possibly add digoxin and see how he does with that. TRANSINT:[id number] Voice Confirmation ID: [id number] DOCUMENT ID: [id number] HISTORY AND PHYSICAL [id number] PURNIMA,JAMES SEGUNDO, XAVIER العلي at 1651 CC: [id number] DICTATION DATE: 12/27/18 1124 FRAME STYLIST: 12/27/18 1235 DIS IN 12/27/18 [place] [place] [address]
--- NOTE | 2018-12-27 16:52 | EC ---
PATIENT:JAMES FELTON DATE OF SERVICE: 12/26/18 SEX: M MEDICAL RECORD: [id number] DATE OF : 55 LOCATION:D. D.212 AGE OF PATIENT: 63 ADMISSION DATE: 12/26/18 REFERRING PHYSICIAN: INTERPRETING PHYSICIAN: XAVIER WILBURN MD ECHOCARDIOGRAM REPORT ECHO CHARGES 5 ECHO LIMITED Date: 12/27/18 1 DOPPLER ECHO COLOR FLOW 2 DOPPLER ECHO PULSE CLINICAL DIAGNOSIS: A-FIB/CHF ECHOCARDIOGRAPHIC MEASUREMENTS (adult normal given) AC root (d.<3.7cm) 0 cm LV Septum d (<1.2 cm> 0 cm Valve Excursion 0 cm LV Septum (systole) 0 cm Left Atria (s.<4.0cm> 0 cm LVPW d(<1.2cm) 0 cm RV (d.<2.3cm) 0 cm LVPW (sytole) 0 cm LV diastole(<5.6CM) 0 cm MV E-F(>70mm/sec) 0 cm LV systole 0 cm LVOT Diameter 0 cm MV exc.(>10mm) 0 cm Est.ejection fraction (50-75%) % DOPPLER: LVIT 0 cm/sec A 0 cm/sec E 0 cm/sec LA 0 cm/sec RVSP 19.0 mmHg LVOT 0 cm/sec AOP1/2T 0 m/s Asc. Ao 0 cm/sec RVOT 0 cm/sec RA 0 cm/sec PA 0 cm/sec AV Gradient Peak 0 mmHg AV Mean 0 mmHg AV Area 0 cm MV Gradient Peak 0 mmHg MV Mean 0 mmHg MV Area 0 cm COMMENTS: LIMITED STUDY (2-D,COLOR,DOPPLER) COMPLETE ECHO DONE ON 12/06/18 Presidential Support Specialist: Nat POEOE Change Control Analyst: 1 Dr. Wilburn TAPE# PACS Pericardial Effusion N DATE OF SERVICE: PROCEDURE: Limited echo with Doppler. INDICATION: Non-Q-wave myocardial infarction. FINDINGS: 1. Left ventricular chamber size is within normal limits. Left ventricular systolic function is normal. Overall ejection fraction estimated at 60%. 2. Left atrium, right atrium, and right ventricular chamber sizes are within ECHOCARDIOGRAM REPORT [id number] JAMES FELTON normal limits. 3. Valvular structures have normal structure and motion. 4. Doppler interrogation reveals trace to mild mitral regurgitation, trace tricuspid regurgitation, no other valvular insufficiency or stenosis. Pulmonary systolic pressure is estimated at 19 mmHg. 5. No evidence of pericardial effusion or left ventricular thrombus. TRANSINT:[id number] Voice Confirmation ID: [id number] DOCUMENT ID: [id number] XAVIER WILBURN MD at 1652 CC: [id number] DICTATION DATE: 12/27/18 1305 SSIS SSRS DEVELOPER: 12/27/18 1317 DIS IN 12/27/18 [place] [address] [place] [address]
--- NOTE | 2018-12-30 09:19 | MORECARE ---
CASE MANAGEMENT DISCHARGE SUMMARY PATIENT: JAMES FELTON UNIT: [id number] ADM DATE: 12/26/18 AGE: 63 : 55 SEX: M ROOM/BED: D.212 AUTHOR: LEANDRO SWAIN PHYSICIAN: REFERRING PHYSICIAN: XAVIER SEGUNDO MD DATE OF SERVICE: 12/30/18 Discharge Plan Patient Name: JAMES FELTON [facility] [facility] 1955 Planned Disposition: Home Anticipated Discharge Date: 12/27/18 Discharge Date: 12/27/2018 Expected LOS: 1 Initial Reviewer: [email or web address] Initial Review Date: 12/30/2018 Generated: 12/30/18 10:18 am Patient Name: JAMES FELTON Page [phone] at 0919 All edits/amendments must be made on the electronic document DICTATION DATE: 12/30/18917 RECREATION THERAPIST: CHE 12/30/18917 RPT#: [id number] DC DATE:12/27/18 STATUS: DIS IN [facility] [address] [place] [address] END OF REPORT
== END 2018-12-27 13:00 | disposition home or self-care (01) ==
LOC: D.ER 19:59 → D.M2 22:01 → OBSVTIME 22:01 → D.M2 22:01
PROVIDERS: Emergency Medicine; ADMIT Internal Medicine Interventional Cardiology; ATTEND Internal Medicine Interventional Cardiology
DX: I25.119 Atherosclerotic heart disease of native coronary artery with unspecified angina pectoris (principal); E78.5 Hyperlipidemia, unspecified; J44.9 Chronic obstructive pulmonary disease, unspecified; I48.0 Paroxysmal atrial fibrillation

== ENCOUNTER → 2019-01-01 13:21 | Outpatient (CLI) | payer MEDICARE ==
[2018-12-26 20:05] VITALS: BMI 25.3
[~2019-01-01 13:21] MED LIST changes: +NEURONTIN 300300 MG PO; +PROPAFENONE HC150 MG PO; +RYTHMOL SR225 MG PO
== END | disposition home or self-care (01) ==
LOC: D.US 13:00
PROVIDERS: ATTEND Internal Medicine Cardiovascular Disease
DX: G45.9 Transient cerebral ischemic attack, unspecified (principal)

== ENCOUNTER 2019-03-15 17:56 | Emergency (ER) | payer MEDICARE, MEDICAID ==
[~2019-03-15] VITALS: Ht 165.1 cm; Wt 70.5 kg
[2019-03-15 18:04] VITALS: Ht 165.1 cm; Wt 70.5 kg
[2019-03-15 18:52] LABS: BASOPHILS 0.1 % (0-2); EOSINOPHILS 3.6 % (0-7); IMMATURE GRANULOCYTES 0.2 % (0-5); LYMPHOCYTES 33.9 % (15-50); MCH 33.9 pg (26.0-34.0); MCHC 34.2 g/dL (31.0-37.0); MEAN PLATELET VOLUME 9.1 fL (7.4-10.4); MONOCYTES 7.9 % (2-11); NEUTROPHILS 54.3 % (40-80); PLATELET COUNT 263 10x3/uL (130-400); RBC 3.84 10x6/uL (4.20-6.10); RDW 12.4 % (11.5-14.5); WBC 8.9 10x3/uL (4.8-10.8)
[2019-03-15 19:11] LABS: APTT 26.7 SECONDS (22.8-39.4); INR 1.07 (0.85-1.17); PROTIME 13.4 SECONDS (11.6-15.0)
[2019-03-15 19:18] LABS: ALBUMIN 3.3 g/dL (3.4-5.0); ALKALINE PHOSPHATASE 71 U/L (46-116); ALT (SGPT) 17 U/L (10-68); BILIRUBIN - TOTAL 0.34 mg/dL (0.2-1.3); CALC OSMOLALITY 274 mosm/kg (275-300); CALCIUM 8.1 mg/dL (8.5-10.1); CARBON DIOXIDE 31.9 mmol/L (21.0-32.0); CHLORIDE - SERUM 103 mmol/L (98-107); POTASSIUM - SERUM 3.7 mmol/L (3.5-5.1); PROTEIN - SERUM 6.4 g/dL (6.4-8.2); SODIUM 139 mmol/L (136-145); UREA NITROGEN 7 mg/dL (7-18); eGFR NON AFRICAN AMERICAN 80 mL/min (90-120)
[2019-03-15 19:21] LABS: GLUCOSE 75 mg/dL (74-106)
[2019-03-15 19:29] LABS: CKMB 1.5 U/L (0.0-3.6); CREATINE KINASE 101 UL (21-232); MAGNESIUM - SERUM 1.5 mg/dL (1.8-2.4); THYROID STIMULATING HORMONE 0.88 uIU/mL (0.36-3.74)
[2019-03-15 19:31] LABS: TROPONIN-I < 0.017 ng/mL (0.000-0.060)
[2019-03-15 23:24] VITALS: BP 113/68
== END 2019-03-15 23:24 | disposition home or self-care (01) ==
LOC: D.ER 17:56
PROVIDERS: Family Medicine
DX: M54.12 Radiculopathy, cervical region (principal); M47.896 Other spondylosis, lumbar region; I10 Essential (primary) hypertension; F17.210 Nicotine dependence, cigarettes, uncomplicated; J43.9 Emphysema, unspecified

== ENCOUNTER 2019-07-03 14:52 | Emergency (ER) | payer MEDICARE, MEDICAID ==
[~2019-07-03] VITALS: Ht 165.1 cm; Wt 66.4 kg
[2019-07-03 15:11] VITALS: Ht 165.1 cm; Wt 66.4 kg
[2019-07-03] MEDS ORDERED: BACLOFEN20 M1 PO (16:46)
[2019-07-03] MEDS ORDERED: PREDNISONE20 MG PO (16:46)
[2019-07-03 17:12] VITALS: BP 152/88
== END 2019-07-03 17:15 | disposition home or self-care (01) ==
LOC: D.ER 14:52
DX: M50.30 Other cervical disc degeneration, unspecified cervical region (principal); I10 Essential (primary) hypertension; I48.91 Unspecified atrial fibrillation; J44.9 Chronic obstructive pulmonary disease, unspecified; K21.9 Gastro-esophageal reflux disease without esophagitis; G62.9 Polyneuropathy, unspecified; X58.XXXA Exposure to other specified factors, initial encounter

== ENCOUNTER 2019-07-06 21:54 | Emergency (ER) | payer MEDICARE, MEDICAID ==
[~2019-07-06] VITALS: Ht 165.1 cm; Wt 65.8 kg
[~2019-07-06 21:54] MED LIST changes: +BACLOFEN20 M1 PO; +PREDNISONE20 MG PO
[2019-07-06 22:06] VITALS: Ht 165.1 cm; Wt 65.8 kg
[2019-07-06] MEDS ORDERED: MUPIROCIN22 GM TOPICAL (23:27)
[2019-07-06 23:45] VITALS: BP 136/74
== END 2019-07-06 23:46 | disposition home or self-care (01) ==
LOC: D.ER 21:54
DX: L98.9 Disorder of the skin and subcutaneous tissue, unspecified (principal); I10 Essential (primary) hypertension; Z95.5 Presence of coronary angioplasty implant and graft; I48.91 Unspecified atrial fibrillation; J44.9 Chronic obstructive pulmonary disease, unspecified; M54.9 Dorsalgia, unspecified; K21.9 Gastro-esophageal reflux disease without esophagitis

== ENCOUNTER 2019-11-27 16:21 | Inpatient (IN) | payer MEDICARE ==
[~2019-11-27] VITALS: Ht 165.1 cm; Wt 75.0 kg
--- NOTE | ~2019-11-27 | EC ---
PATIENT:JAMES FELTON DATE OF SERVICE: 11/27/19 SEX: M MEDICAL RECORD: [id number] DATE OF : 55 LOCATION:[facility] AGE OF PATIENT: 64 ADMISSION DATE: 11/27/19 REFERRING PHYSICIAN: INTERPRETING PHYSICIAN: HARMONY BARRIOS MD ECHOCARDIOGRAM REPORT ECHO CHARGES 4 ECHO COMPLETE Date: 11/28/19 CLINICAL DIAGNOSIS: CVA HX OF CAD/AFIB ECHOCARDIOGRAPHIC MEASUREMENTS (adult normal given) AC root (d.<3.7cm) 3.6 cm LV Septum d (<1.2 cm> 1.4 cm Valve Excursion 1.5 cm LV Septum (systole) 1.5 cm Left Atria (s.<4.0cm> 3.5 cm LVPW d(<1.2cm) 1.5 cm RV (d.<2.3cm) 3.3 cm LVPW (sytole) 1.7 cm LV diastole(<5.6CM) 4.1 cm MV E-F(>70mm/sec) cm LV systole 3.0 cm LVOT Diameter 1.8 cm MV exc.(>10mm) 1.6 cm Est.ejection fraction (50-75%) % DOPPLER: LVIT cm/sec A 96.0 cm/sec E 72.0 cm/sec LA cm/sec RVSP 16 mmHg LVOT 114 cm/sec AOP1/2T m/s Asc. Ao 129 cm/sec RVOT 115 cm/sec RA cm/sec PA 140 cm/sec AV Gradient Peak 6.68 mmHg AV Mean 3.65 mmHg AV Area 2.7 cm MV Gradient Peak 4.16 mmHg MV Mean 1.90 mmHg MV Area cm COMMENTS: Housekeeping Supervisor Hotel: 2 HUAN ZAMUDIO College Archivist: 3 Dr. Plascencia TAPE# PACS Pericardial Effusion N DATE OF SERVICE: Adequate 2D, color flow imaging, spectral Doppler and M-mode. LVH is present. LV internal dimension is normal. Wall motion is normal. EF is greater than or equal to 55%. Aortic valve is tricuspid. No evidence of stenosis by Doppler interrogation. Left atrium is normal. Mitral valve shows no prolapse Trace MR. Right-sided chambers are grossly normal. Trace TR. TRANSINT:[id number] Voice Confirmation ID: [id number] DOCUMENT ID: [id number] ECHOCARDIOGRAM REPORT [id number] PURNIMA,HARMONY CALLAHAN MD CC: [id number] DICTATION DATE: 11/28/19 1349 CALENDER MACHINE OPERATOR HELPER: 11/28/192222 DIS IN 11/28/19 [place] [id number] [place] [id number]
[~2019-11-27 16:21] MED LIST changes: +MUPIROCIN22 GM TOPICAL
[2019-11-27 16:49] LABS: BASOPHILS 0.3 % (0-2); EOSINOPHILS 2.7 % (0-7); HEMATOCRIT 42.6 % (42.0-54.0); HEMOGLOBIN 14.6 g/dL (13.5-17.5); IMMATURE GRANULOCYTES 0.1 % (0-5); MCH 33.8 pg (26.0-34.0); MCHC 34.3 g/dL (31.0-37.0); MCV 98.6 fL (80.0-100.0); MONOCYTES 7.6 % (2-11); NEUTROPHILS 53.3 % (40-80); PLATELET COUNT 280 10x3/uL (130-400); RBC 4.32 10x6/uL (4.20-6.10); RDW 12.7 % (11.5-14.5); WBC 7.8 10x3/uL (4.8-10.8)
[2019-11-27 16:57] LABS: CALC OSMOLALITY 273 mosm/kg (275-300); CALCIUM 8.5 mg/dL (8.5-10.1); CHLORIDE - SERUM 101 mmol/L (98-107); CREATININE - SERUM 1.4 mg/dL (0.6-1.3); GLUCOSE 129 mg/dL (74-106); POTASSIUM - SERUM 3.6 mmol/L (3.5-5.1); SODIUM 137 mmol/L (136-145); UREA NITROGEN 7 mg/dL (7-18); eGFR NON AFRICAN AMERICAN 54 mL/min (90-120)
[2019-11-27 17:03] LABS: APTT 36.8 SECONDS (22.8-39.4); INR 1.63 (0.85-1.17); PROTIME 19.2 SECONDS (11.6-15.0)
[2019-11-27 17:16] VITALS: BP 119/82
[2019-11-27 17:24] LABS: ALBUMIN 3.6 g/dL (3.4-5.0); ALKALINE PHOSPHATASE 70 U/L (30-120); ALT (SGPT) 23 U/L (10-68); BILIRUBIN - TOTAL 0.37 mg/dL (0.2-1.3); CKMB 3.2 U/L (0.0-3.6); CREATINE KINASE 150 UL (21-232); MAGNESIUM - SERUM 1.7 mg/dL (1.8-2.4); PROTEIN - SERUM 6.8 g/dL (6.4-8.2); THYROID STIMULATING HORMONE 1.27 uIU/mL (0.36-3.74)
[2019-11-27 17:25] LABS: TROPONIN-I < 0.017 ng/mL (0.000-0.060)
--- NOTE | 2019-11-27 18:20 | NUR ---
TURKEY SANDWICH TO PT AFTER ERP APPROVAL. PT EATING.
--- NOTE | 2019-11-27 19:10 | NUR ---
REPORT TO ERLINDA CALLES.
[2019-11-27 19:30] VITALS: BP 121/76
[2019-11-27 20:00] VITALS: BP 117/73
[2019-11-27 20:49] VITALS: BP 111/69
--- NOTE | 2019-11-27 21:30 | NUR ---
RECEIVED TO FLOOR, ACCOMPANIED BY ER STAFF. A&O X 4, AMBULATES INDEPENDENTLY. PT REPORTS ALL SYMPTOMS HE WAS DISPLAYING HAVE RESOLVED SINCE ADMISSION. SPEECH CLEAR AND PRECISE. HAND PLANING MACHINE OPERATOR AND FOOT STRENGTH EQUALLY WNL. IV TO RIGHT AC PATENT, SL. WATER AND SANDWICH TRAY GIVEN PER REQUEST. NON-SKID FOOTWEAR AND SCDs APPLIED. I.S. AT BS. PT REPORTS CHRONIC BACK PAIN RISING. ALSO STATES HE WOULD LIKE TO BE ADMINISTERED NICOTINE PATCHES WHILE HOSPITALIZED. WILL CONTINUE TO MONITOR.
[2019-11-27] MEDS ORDERED: NEXIUM40 MG PO ×2 (22:59)
[2019-11-27] MEDS ORDERED: RYTHMOL SR225 MG PO (23:01)
[2019-11-27] MEDS ORDERED: FLOMAX0.4 MG PO (23:03)
--- NOTE | 2019-11-27 23:30 | NUR ---
NO TELEMETRY MONITORS AVAILABLE PER LILA, KNOT PICKER CLOTH.
[2019-11-28 02:06] VITALS: BP 110/71; Ht 165.1 cm; Wt 75.0 kg
[2019-11-28 03:00] VITALS: BP 161/92
[2019-11-28 04:00] VITALS: BP 131/80
[2019-11-28 08:00] VITALS: BP 131/81
--- NOTE | 2019-11-28 10:32 | NUR ---
PT A&O X4, SITTING UP IN BED. C/O R SIDED WEAKNESS. PT STATES H/O MULTIPLE CVAS AND STENTS. PT ON TELEMETRY, SINUS RYTHUM. PT DENIES PAIN. PT ASKED ABOUT THE HOME MED XARELTO, WAS NOT ON MED REC. REPORTED TO MD. PT ASKED FOR NICOTINE PATCH. REPORTED TO MD. PT IS WEARING SCDS. PIV IN R AC, SALINE LOCKED, PATENT. PT IS ABLE TO ABULATE WIHTOUT ASSIST AND WALKED OUT TO NURSE STATION FOR NEWSPAPER. NO FALL PRECAUTIONS. PT EDUCATED ABOUT CALL LIGHT. PT DENIES FURTHER NEEDS. BED LOW. CL IN REACH. WILL CONTINUE TO MONITOR.
[2019-11-28 11:00] VITALS: BP 130/84
[2019-11-28 12:37] LABS: CREATINE KINASE 94 UL (21-232); PRO BNP 103 pg/mL (0-125); TROPONIN-I < 0.017 ng/mL (0.000-0.060)
[2019-11-28 15:42] LABS: BILIRUBIN NEGATIVE (NEGATIVE); GLUCOSE NEGATIVE (NEGATIVE); KETONE NEGATIVE (NEGATIVE); NITRITE NEGATIVE (NEGATIVE); UROBILINOGEN NORMAL (NORMAL)
[2019-11-28 15:43] LABS: BACTERIA FEW /hpf (NEGATIVE); WHITE CELLS - URINE 0-5 /hpf (NEGATIVE)
[2019-11-28] MEDS ORDERED: ELIQUIS5 MG PO (16:19)
== END 2019-11-28 18:39 | disposition home or self-care (01) | DRG 69 ==
LOC: D.ER 16:21 → D.MS 19:20
PROVIDERS: Family Medicine; ADMIT Family Medicine; ATTEND Family Medicine
DX: G45.9 Transient cerebral ischemic attack, unspecified (principal); N17.9 Acute kidney failure, unspecified; F17.213 Nicotine dependence, cigarettes, with withdrawal; I50.32 Chronic diastolic (congestive) heart failure; E83.42 Hypomagnesemia; I25.10 Atherosclerotic heart disease of native coronary artery without angina pectoris; I48.91 Unspecified atrial fibrillation; K21.9 Gastro-esophageal reflux disease without esophagitis; I11.0 Hypertensive heart disease with heart failure; E78.5 Hyperlipidemia, unspecified; G89.4 Chronic pain syndrome; F41.8 Other specified anxiety disorders

== ENCOUNTER 2019-12-22 06:36 | Day surgery (SDC) | payer MEDICARE ==
[~2019-12-22] VITALS: Ht 158.8 cm; Wt 59.1 kg
[~2019-12-22 06:36] MED LIST changes: +ELIQUIS5 MG PO; +FLOMAX0.4 MG PO
[2019-12-22 07:25] LABS: ANION GAP 9.6 mmol/L (8-16); CREATININE - SERUM 1.1 mg/dL (0.6-1.3); POTASSIUM - SERUM 3.6 mmol/L (3.5-5.1)
[2019-12-22] MEDS ORDERED: PROPAFENONE HC225 MG PO (07:29)
[2019-12-22 08:06] VITALS: Ht 158.8 cm; Wt 59.1 kg
[2019-12-22 08:50] LABS: HEMATOCRIT 41.9 % (42.0-54.0); HEMOGLOBIN 14.5 g/dL (13.5-17.5); LYMPHOCYTES 24.7 % (15-50); MCH 34.1 pg (26.0-34.0); MCHC 34.6 g/dL (31.0-37.0); MCV 98.6 fL (80.0-100.0); MEAN PLATELET VOLUME 8.8 fL (7.4-10.4); PLATELET COUNT 315 10x3/uL (130-400); RBC 4.25 10x6/uL (4.20-6.10); RDW 12.9 % (11.5-14.5); WBC 8.5 10x3/uL (4.8-10.8)
--- NOTE | 2019-12-22 09:04 | NUR ---
PT ATTEMPTED OVERDOSE "YEARS AGO" OVER MARRIAGE ISSUES. PT DENIES SI. RESOURCES GIVEN AND REVIEWED WITH PT. PT VERBALIZED UNDERSTANDING. LOW RISK PER ASSESSMENT.
--- NOTE | 2019-12-22 09:40 | NUR ---
0940 VOIDED. AMBULATORY WITHOUT DIFFICULTY. IV DC'ED WITH CATH INTACT. DRESSING. Dilan GRIER R.N.
--- NOTE | 2019-12-22 12:37 | NUR ---
[address] AVELAR. PROCEDURE FINDINGS DISCUSSED WITH PATIENT. PT GIVEN DISCHARGE INFORMATION INCLUDING: MED REC, SHEET LISTING NSAIDS TO AVOID, RTC APPT., & [facility] POST ENDOSCOPIC D/C INSTRUCTIONS. TO PRIVATE CAR PER WHEELCHAIR BY THIS NURSE. HOME WITH , SANJUANA FELTON. Dilan GRIER R.N.
--- NOTE | 2019-12-24 16:26 | OP ---
PATIENT NAME: JAMES FELTON MEDICAL RECORD: [id number] :55 LOCATION:[facility] ADMISSION DATE: SURGEON: BLAZE AVELAR DO DATE OF OPERATION: 12/22/2019 PROCEDURE: EGD with biopsies. INDICATIONS FOR PROCEDURE: Dysphagia, epigastric pain, nausea and vomiting, positive stool guaiac, weight loss, history of Anderson's. SCOPE: Olympus video gastroscope. MEDICATIONS: Propofol 300 mg IV per anesthesia. ESTIMATED BLOOD LOSS: Minimal. COMPLICATIONS: None. FINDINGS: Informed consent was given. The patient was made comfortable with the above medication. After reaching an adequate level of sedation by slow IV push, the patient was placed on his left side. The endoscope was advanced under direct visualization through the mouth to the second portion of the duodenum with ease. The esophagus appeared normal down to the GE junction. 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 There were no obvious dysplastic areas within the Anderson's itself. Multiple cold forceps biopsies were taken from the Anderson's tissue to submit for histopathology. Midesophagus biopsies were taken to rule out the presence of eosinophils. The endoscope was advanced beyond the GE junction into the stomach and retroflexed to view the cardia and fundus, which appeared normal. The body of the stomach also appeared normal. In the antrum and prepyloric regions, there was some scattered erythema and granularity consistent with mild gastritis. Cold forceps biopsies were taken from the antrum and incisura to submit for histopathology and to rule out the presence of H. pylori. The endoscope was advanced into the duodenum which appeared normal to the second portion. Cold forceps biopsies were taken to submit for histopathology. The endoscope was withdrawn from the patient. The patient tolerated the procedure well and there were no complications. IMPRESSION: 1. 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 2. Mild chronic gastritis involving the antrum. PLAN AND RECOMMENDATIONS: 1. Discharge home when recovery parameters are met. 2. Follow up biopsy specimen results. 3. GERD diet and reflux precautions. 4. Continue current medications including Nexium 40 mg daily and Carafate as needed. 5. Gastric emptying scan to evaluate upper digestive symptoms. 6. Proceed with colonoscopy regarding the positive guaiac stools and weight loss. 7. Surveillance endoscopies should occur every 2 years due to the presence of Anderson esophagus. OPERATIVE REPORT [id number] PURNIMAJAMES NTS:[id number] Voice Confirmation ID: [id number] DOCUMENT ID: [id number] BLAZE AVELAR DO at 1626 CC: [id number] DICTATION DATE: 12/22/19 0836 SHOP TAILOR APPRENTICE: 12/22/191951 [facility] 12/22/[address] [facility] [address] [place] [address]
== END 2019-12-22 10:18 | disposition home or self-care (01) ==
LOC: D.OPS 06:36
PROVIDERS: Anesthesiology; ATTEND Internal Medicine Gastroenterology
DX: R13.10 Dysphagia, unspecified (principal); R10.13 Epigastric pain; R11.2 Nausea with vomiting, unspecified; R19.5 Other fecal abnormalities; R63.4 Abnormal weight loss; K22.70 Barrett's esophagus without dysplasia; Z86.73 Personal history of transient ischemic attack (TIA), and cerebral infarction without residual deficits

== ENCOUNTER 2020-02-09 20:16 | Observation (INO) | payer MEDICARE ==
[~2020-02-09] VITALS: Ht 152.4 cm; Wt 71.8 kg
[~2020-02-09 20:16] MED LIST changes: +PROPAFENONE HC225 MG PO
[2020-02-09 21:00] VITALS: BP 122/70
[2020-02-09 21:00] LABS: BASOPHILS 0.1 % (0-2); EOSINOPHILS 3.3 % (0-7); HEMATOCRIT 41.8 % (42.0-54.0); HEMOGLOBIN 14.3 g/dL (13.5-17.5); IMMATURE GRANULOCYTES 0.2 % (0-5); LYMPHOCYTES 28.4 % (15-50); MCH 33.9 pg (26.0-34.0); MCHC 34.2 g/dL (31.0-37.0); MCV 99.1 fL (80.0-100.0); MEAN PLATELET VOLUME 8.9 fL (7.4-10.4); MONOCYTES 7.8 % (2-11); NEUTROPHILS 60.2 % (40-80); PLATELET COUNT 276 10x3/uL (130-400); RBC 4.22 10x6/uL (4.20-6.10); RDW 12.6 % (11.5-14.5); WBC 9.1 10x3/uL (4.8-10.8)
[2020-02-09 21:19] LABS: CALC OSMOLALITY 277 mosm/kg (275-300); CALCIUM 9.1 mg/dL (8.5-10.1); CARBON DIOXIDE 32.7 mmol/L (21.0-32.0); CHLORIDE - SERUM 101 mmol/L (98-107); CREATININE - SERUM 1.2 mg/dL (0.6-1.3); GLUCOSE 97 mg/dL (74-106); SODIUM 138 mmol/L (136-145); UREA NITROGEN 19 mg/dL (7-18); eGFR NON AFRICAN AMERICAN 65 mL/min (90-120)
[2020-02-09 21:26] LABS: PROTIME 13.2 SECONDS (11.6-15.0)
[2020-02-09 21:27] LABS: D-DIMER-QUANTITATIVE < 0.27 ug/mLFEU (0.20-0.54)
[2020-02-09 21:33] LABS: ALBUMIN 3.7 g/dL (3.4-5.0); ALKALINE PHOSPHATASE 87 U/L (30-120); ALT (SGPT) 22 U/L (10-68); BILIRUBIN - TOTAL 0.22 mg/dL (0.2-1.3); C-REACTIVE PROTEIN 0.7 mg/dL (0.0-0.9); CREATINE KINASE 136 UL (21-232); LIPASE 82 U/L (73-393); PRO BNP 99 pg/mL (0-125); PROTEIN - SERUM 7.2 g/dL (6.4-8.2); THYROID STIMULATING HORMONE 2.04 uIU/mL (0.36-3.74)
[2020-02-09 21:34] LABS: TROPONIN-I < 0.017 ng/mL (0.000-0.060)
[2020-02-09 22:30] VITALS: BP 107/67
[2020-02-09 22:46] LABS: UDS - AMPHET NEGATIVE QUAL (NEGATIVE); UDS - BARB POSITIVE QUAL (NEGATIVE); UDS - BENZO NEGATIVE QUAL (NEGATIVE); UDS - COCAINE NEGATIVE QUAL (NEGATIVE); UDS - OPIATE POSITIVE QUAL (NEGATIVE); UDS - PCP NEGATIVE QUAL (NEGATIVE); UDS - THC NEGATIVE QUAL (NEGATIVE)
[2020-02-09 23:05] LABS: BILIRUBIN NEGATIVE (NEGATIVE); KETONE NEGATIVE (NEGATIVE); NITRITE NEGATIVE (NEGATIVE); UROBILINOGEN NORMAL (NORMAL)
[2020-02-10] VITALS: BP 134/76
[2020-02-10 00:14] VITALS: BP 151/76
[2020-02-10] MEDS ORDERED: SAVELLA50 MG PO (00:49)
[2020-02-10] MEDS ORDERED: LIPITOR80 MG PO (00:50)
[2020-02-10 02:09] VITALS: Ht 152.4 cm; Wt 71.8 kg
[2020-02-10 04:00] VITALS: BP 126/74
[2020-02-10 08:00] VITALS: BP 144/78
[2020-02-10 12:03] VITALS: BP 124/72
--- NOTE | 2020-02-10 13:03 | NUR ---
PT REFUSED TO HAVE MRI PRIOR TO DISCHARGE AND DEMANDED TO LEAVE. NOTIFIED JERE GIBBONS WHO INSTRUCTED ME TO GO AHEAD AND DISCHARGE PATIENT.
--- NOTE | 2020-02-10 13:28 | NUR ---
PT DISCHARGED HOME VIA WHEELCHAIR WITH FAMILY. PIV REMOVED WITH CATHETER TIP FULLY INTACT. PT SIGNED PROPER DISCHARGE INSTRUCTIONS AND REMOVED ALL VALUABLES FROM THE ROOM. TELEMETRY REMOVED AND RETURNED.
== END 2020-02-10 13:29 | disposition home or self-care (01) ==
LOC: D.ER 20:16 → OBSVTIME 02-10 00:01 → D.M2 02-10 00:01
PROVIDERS: Family Medicine; ADMIT Family Medicine; ATTEND Family Medicine
DX: J44.9 Chronic obstructive pulmonary disease, unspecified (principal); G62.9 Polyneuropathy, unspecified; K21.9 Gastro-esophageal reflux disease without esophagitis; I25.10 Atherosclerotic heart disease of native coronary artery without angina pectoris; I10 Essential (primary) hypertension; F17.203 Nicotine dependence unspecified, with withdrawal; Z79.01 Long term (current) use of anticoagulants; F41.8 Other specified anxiety disorders; G89.4 Chronic pain syndrome; G45.9 Transient cerebral ischemic attack, unspecified; E78.5 Hyperlipidemia, unspecified; R42 Dizziness and giddiness

== ENCOUNTER 2020-08-19 14:00 | Outpatient (CLI) | payer MEDICARE ==
[2020-04-17 18:48] VITALS: BMI 24.3
[~2020-08-19 14:00] MED LIST changes: +BACLOFEN10 MG PO; +LIPITOR80 MG PO
== END 2020-08-19 23:59 | disposition home or self-care (01) ==
LOC: D.MAMMO 14:00
PROVIDERS: ATTEND Family Medicine
DX: N62 Hypertrophy of breast (principal)

== ENCOUNTER 2020-09-01 20:19 | Observation (INO) | payer MEDICARE, MEDICAID ==
[~2020-09-01] VITALS: Ht 160 cm; Wt 60.8 kg
--- NOTE | ~2020-09-01 | HEMODYNAMI ---
PATIENT:JAMES FELTON MEDICAL RECORD: [id number] : 55 [id number] ADMISSION DATE: 09/01/20 Generatedon:115:19 Patient name: JAMES FELTON Patient #: [id number] SSN: [id number] : 1955 Date of study: 09/02/2020 Page: Of Hemodynamic Procedure Report Patient Data Patient Demographics Procedure consent was obtained First Name: JAMES Gender: Male Last Name: PURNIMA : 1955 Middle Initial: PRIYA Age: 65 year(s) Patient #: [id number] Race: Unknown SSN: [id number] Additional ID: [id number] Contact details Address: [address] [place] [address] lane State: [place] City: [place] Zip code: [address] Past Medical History Allergies: No known allergies Admission Admission Data Admission Date: 09/01/2020 Admission Time: 21:01 Arrival Date: 09/02/2020 Arrival Time: 0:00 Room #: D.2106 Insurance Payor: Medicare PSYCHIATRIC #: [id number] Height (in.): 62.99 BSA: 1.63 (m2) Height (cm.): 160 BMI: 23.83 (kg/m2) Weight (lbs.): 134.48 Weight (kg.): 61 Lab Results Lab Result Date: 09/02/2020 Lab Result Time: 0:00 Biochemistry Name Units Result Min Max BUN mg/dl 21 --(----)-* 7 18 Creatinine mg/dl 1.2 --(---*)-- 0.6 1.3 eGFR ml/min 64.52799 *-(----)-- 90 120 NONAFRICAN CBC Name Units Result Min Max Hemoglobin g/dl 13.3 -*(----)-- 13.5 17.5 Procedure Procedure Types Cath Procedure Diagnostic Procedure [facility] w/Coronaries Sedation Charges Moderate Sedation 10-24 minutes Procedure Description Procedure Date Procedure Date: 09/02/2020 Procedure Start Time: 15:08 Procedure End Time: 15:16 Procedure Staff Name Function Dominick Harris MD Performing Physician Annalise Aguilar RT Monitor Tgkobi Woodward RT Scrub Danny Waldron RN Nurse Procedure Data Cath Procedure Fluoroscopy Diagnostic fluoroscopy Total fluoroscopy Time: 1 time: 1 min min Diagnostic fluoroscopy Total fluoroscopy dose: 267 dose: 267 mGy mGy Contrast Material Contrast Material Type Amount (ml) Isovue 300 56 Entry Location Entry Primary Successful Side Size Upsize Upsize Entry Closure Succes sful Closure Location (Fr) 1 (Fr) 2 (Fr) Remarks Device Remarks Femoral Right 5 Fr Exoseal artery Estimated blood loss: 10 ml Diagnostic catheters Device Type Used For End Catheter Placement MULTIPACK JL 4.0 5Fr Procedure catheter MULTIPACK 3DRC 5Fr Procedure catheter MULTIPACK Pigtail 5 Fr Ventriculography catheter Procedure Complications No complications Procedure Medications Medication Administration Route Dosage Oxygen etCO2 Nasal cannula 2 l/min Lidocaine 2% added to field 20 Heparin Flush Bag added to field 2 bags (1000units/500ml NS) 0.9% NaCl I.V. 100 ml/hr Versed I.V. 1 mg Fentanyl I.V. 50 mcg Versed I.V. 1 mg Fentanyl I.V. 50 mcg Versed I.V. 0.5 mg Fentanyl I.V. 25 mcg Hemodynamics Rest BSA: 1.63 (m2) HGB: 13.3 (g/dl) O2 Consumption: Estimated: 193.6 (ml/min) O2 Con sumption indexed: Estimated:118.77 (ml/min/m) Heart Rate: 76 (bpm) Pressure Samples Time Site Value (mmHg) Purpose Heart Use Rate(bpm) 15:13 LV 122/7,16 Snapshot 67 Gradients Valve Time Site Site Mean SEP/DFP Peak To Heart Use 1 2 (mmHg) (sec/min) Peak Rate (mmHg) (bpm) Aortic 15:13 LV AO 68 Snapshots Pre Cath Intra NCS Post Cath Vital Signs Time Heart Resp SPO2 etCO2 NIBP (mmHg) Rhythm Pain Sedation Rate (ipm) (%) (mmHg) Status Level (bpm) 15:00:12 70 15 97 0 112/77(100) NSR 0 (11) 10(A) , No pain 15:04:28 66 10 97 37.8 108/63(87) NSR 0 (11) 10(A) , No pain 15:08:40 64 12 100 32.6 102/62(80) NSR 0 (11) 9(A) , No pain 15:12:48 67 13 100 37.1 108/69(87) NSR 0 (11) 9(A) , No pain 15:16:57 69 12 100 20 111/67(98) NSR 0 (11) 10(A) , No pain Medications Time Medication Route Dose Verified Delivered Reason Notes Eff ectiveness by by 15:00:00 Oxygen etCO2 2 Dominick Buffie used for Nasal l/min [facility] aircraft engine cylinder mechanic cannula 15:00:06 Lidocaine 2% added 20ml Dominick Dominick for local to vial [facility] anesthetic field MD العلي 15:00:13 Heparin Flush added 2 Dominick Dominick used for Bag to bags [facility] procedure (1000units/500ml field MD العلي NS) 15:02:31 0.9% NaCl I.V. 100 Dominick Buffie Per ml/hr [place] Waldron RN physician 15:03:46 Versed I.V. 1 mg Dominick Buffie for Steven Waldron RN sedation 15:03:50 Fentanyl I.V. 50 Dominick Buffie for mcg Steven Waldron RN sedation 15:07:04 Versed I.V. 1 mg Dominick Buffie for Steven Waldron RN sedation 15:07:08 Fentanyl I.V. 50 Dominick Buffie for mcg Steven Waldron RN sedation 15:10:47 Versed I.V. 0.5 Dominick Buffie for mg Steven Waldron RN sedation 15:10:51 Fentanyl I.V. 25 Dominick Buffie for mcg Steven Waldron RN sedation Procedure Log Time Note 14:22:37 Informed consent obtained and on chart 14:22:54 Procedure Status Urgent Heart Cath (IP). 14:22:56 Annalise FERNANDEZ(R) sent for patient. Start room use. 14:22:56 Time tracking: Regular hours (M-F 7:00 - 5:00) 14:23:00 Plan of Care:Hemodynamics will remain stable., Cardiac rhythm will remain stable., Comfort level will be maintained., Respiratory function will remain adequate., Patient/ family verbilizes understanding of procedure., Procedure tolerated without complication., Recovers from procedure without complications.. 14:30:25 Patient received from CVICU to CCL 1 Alert and oriented. Tansferred to table in Supine position. 14:33:28 H&P Date Dictated: 09/02/2020 Within 30 days and on chart., H&P Addendum completed by physician on day of procedure. (MUST COMPLETE FOR ALL OUTPATIENTS). 14:40:05 Arrival Date: 09/02/2020 12:00:00 AM 14:40:21 Insurance Payor : Medicare 14:40:27 Patient Height : 62.99 inches 14:40:32 Patient Weight : 134.48 lbs 14:41:22 Lab Result : Hemoglobin 13.3 g/dl 14:41:22 Lab Result : eGFR NONAFRICAN 64.86124 ml/min 14:41:22 Lab Result : BUN 21 mg/dl 14:41:22 Lab Result : Creatinine 1.2 mg/dl 14:59:03 Warm blankets applied, and yolanda hugger turned on for patient comfort. 14:59:04 Correct patient and procedure confirmed by team. 14:59:05 ECG and BP/O2 sat monitors applied to patient. 14:59:06 Vital chart was started 14:59:16 Baseline sample Acquired. 14:59:21 Rhythm: sinus rhythm 14:59:23 Full Disclosure recording started 14:59:27 Family in patients room. 14:59:30 Patient NPO since Midnight. 14:59:38 Patient allergic to No known allergies 14:59:41 Is the patient allergic to Iodine/contrast media? No. 15:00:00 Oxygen 2 l/min etCO2 Nasal cannula was administered by Danny Waldron RN; used for procedure; Verbal order read back and verified. 15:00:06 Lidocaine 2% 20ml vial added to field was administered by Dominick Harris MD; for local anesthetic; Verbal order read back and verified. 15:00:13 Heparin Flush Bag (1000units/500ml NS) 2 bags added to field was administered by Dominick Harris MD; used for procedure; Verbal order read back and verified. 15:01:20 Was the patient premedicated? Yes 15:01:22 Is patient on blood thinner?Yes 15:01:23 Patient diabetic? No. 15:01:26 Snore? Yes 15:01:27 Sleep apnea? No 15:01:32 Airway obstruction? Yes COPD 15:01:39 Patient pain scale 0/10 ?. 15:01:51 IV patent on arrival in left forearm with 0.9% NaCl at [facility]. 15:02:07 Lab results completed and on chart. 15:02:14 Right groin area was prepped with chlora-prep and draped in sterile fashion 15:02:15 Alarms reviewed by R. N. 15:02:15 Sharps counted by scrub and verified by R.N. 15:02:16 Physician arrived 15:02:17 --------ALL STOP TIME OUT------ 15:02:17 Final Timeout: patient, procedure, and site verified with staff and physician. All members of the team are in agreement. 15:02:20 Right groin site verified by team. 15:02:27 Fire Safety Assessment: A--An alcohol-based skin anteseptic being used preoperatively., C--Open oxygen or nitrous oxide is being used., D--An ESU, laser, or fiber-optic light is being used. 15:02:31 0.9% NaCl 100 ml/hr I.V. was administered by Danny Waldron RN; Per physician; Verbal order read back and verified. 15:02:32 Physical assessment completed. ASA score P 3 - A patient with severe systemic disease as per Dominick Harris MD. 15:03:16 2) 60-89 Mildly reduced kidney function, and other findings (as for stage 1) point to kidney disease. 15:03:20 Maximum allowable contrast dose (3.7 X eGFR X 0.75)177 ml. 15:03:24 Sedation plan: IV Moderate Sedation Medication:Versed, Fentanyl 15:03:46 Versed 1 mg I.V. was administered by Danny Waldron RN; for sedation; Verbal order read back and verified. 15:03:50 Fentanyl 50 mcg I.V. was administered by Danny Waldron RN; for sedation; Verbal order read back and verified. 15:03:55 ACC The patient was administered the following blood thiners within the last 24 hours: ACCPlavix 15:04:05 Use device set Femoral Dx 15:04:06 ACIST Syringe (38577) opened to sterile field. 15:04:06 Bag Decanter (2002S) opened to sterile field. 15:04:08 Medline Cath Pack ([id number]) opened to sterile field. 15:04:09 ACIST Hand Control (52595) opened to sterile field. 15:04:10 ACIST Manifold (56395) opened to sterile field. 15:04:17 EXOSEAL 5Fr (EX500) opened to sterile field. 15:04:17 SHEATH 5FR [place] (HAI225) opened to sterile field. 15:04:18 EMERALD Guide Wire (554-572) opened to sterile field. 15:04:20 Tegaderm 4 x 4 (1626W) opened to sterile field. 15:04:21 DIAGNOSTIC Multipack 5Fr catheter set (LF3297) opened to sterile field. 15:04:49 Is patient on blood thinner?Yes 15:04:54 ACC The patient was administered the following blood thiners within the last 24 hours: Eliquis 15:07:04 Versed 1 mg I.V. was administered by Danny Waldron RN; for sedation; Verbal order read back and verified. 15:07:08 Fentanyl 50 mcg I.V. was administered by Danny Waldron RN; for sedation; Verbal order read back and verified. 15:07:40 Procedure started. 15:08:03 Local anesthetic to right femoral artery with Lidocaine 2% by Dominick Harris MD.INITIAL ACCESS ONLY 15:08:13 A 5 Fr sheath was inserted into the Right Femoral artery 15:08:18 J wire advanced. 15:09:19 A MULTIPACK JL 4.0 5Fr catheter was advanced over the wire and used for Procedure. 15:09:42 LCA angiography performed. 15:10:45 Catheter removed. 15:10:47 Versed 0.5 mg I.V. was administered by Danny Waldron RN; for sedation; Verbal order read back and verified. 15:10:51 Fentanyl 25 mcg I.V. was administered by Danny Waldron RN; for sedation; Verbal order read back and verified. 15:10:53 A MULTIPACK 3DRC 5Fr catheter was advanced over the wire and used for Procedure. 15:10:56 RCA angiography performed. 15:11:34 Catheter removed. 15:11:42 A MULTIPACK Pigtail 5 Fr catheter was advanced over the wire and used for Ventriculography. 15:12:04 LV gram done using REYES 15:12:11 EF : 55 % 15:13:22 Catheter removed. 15:14:00 Sheath removed intact; hemostasis achieved with Exoseal to the Right Femoral artery. 15:14:03 Procedure ended.(Physican Out) 15:14:16 Fluoroscopy time 01.00 minutes. 15:14:22 Fluoroscopy dose: 267 mGy 15:14:22 Flurop Dose total: 267 15:14:28 Dose Area Product 49097 mGy/cm. 15:14:32 Contrast amount:Isovue 300 56ml. 15:14:35 Maximum allowable dose exceeded? No. 15:14:37 Sharps counted by scrub and verified by R.N. 15:14:38 Insertion/operative site no bleeding no hematoma. 15:14:42 Post-op/insertion site Right Femoral artery dressed using a 4 x 4 and Tegaderm. 15:14:51 Post-procedure physical assessment completed. ASA score P 2 - A patient with mild systemic disease as per Dominick Harris MD. 15:14:55 Post procedure rhythm: unchanged. 15:14:59 Estimated blood loss: 10 ml 15:15:02 Post procedure instruction explained to patient.Patient verbalizes understanding. 15:15:36 Procedure type changed to Cath procedure, Diagnostic procedure, LHC, LHC w/Coronaries, Sedation Charges, Moderate Sedation 10-24 minutes 15:15:38 Procedure and supply charges have been captured, reviewed, submitted and are correct. 15:16:17 Procedure Complication : No complications 15:16:19 Vital chart was stopped 15:16:24 [facility] Findings: mild to moderate CAD (<70%) 15:16:32 Operative report dictated upon procedure completion. 15:16:34 See physician's report for complete and final results. 15:16:39 Report given to Med II. 15:16:45 Patient transfered to Med II with Stretcher. 15:16:47 Procedure ended. 15:16:47 Full Disclosure recording stopped 15:16:50 End room use (Document Last) 15:18:03 End room use (Document Last) 15:19:05 End room use (Document Last) Device Usage Item Name Manufacture Quantity Catalog Hospital Part Current Minimal L ot# / Number Charge Number Stock Stock Serial# Code ACIST Acist 1 89894 229011 021525 [id number] 20 Syringe Medical (61270) Systems Inc Bag Microtek 1 966508 39518 485224 5 Decanter Medical Inc. () Medline Medline 1 [id number] 464813 78700 267368 5 Cath Pack ([id number]) ACIST Hand Acist 1 73450 596532 399374 372012 5 Control Medical (46218) Systems Inc ACIST Acist 1 94865 641543 641003 021825 5 Manifold Medical (83518) Systems Inc EXOSEAL 5Fr Cardinal 1 EX500 448744 505207 506404 10 (EX500) Health SHEATH 5FR Terumo 1 [id number] 807644 621106 762770 5 [place] (EWW932) EMERALD Cardinal 1 502-455 625117 310102 674662 5 Guide Wire Health (502-455) Tegaderm 4 3M 1 1626W 859874 484129 309218 5 x 4 (1626W) DIAGNOSTIC Cardinal 1 [id number] 606448 90920 516308 30 Multipack Health 5Fr catheter set (WT1820) MULTIPACK Cardinal 1 269386 5 JL 4.0 5Fr Health catheter MULTIPACK Cardinal 1 307459 5 3DRC 5Fr Health catheter MULTIPACK Cardinal 1 836959 5 Pigtail 5 Health Fr catheter Signature Audit [place] Stage Time Signature Unsigned Intra-Procedure 09/02/2020 Annalise Aguilar 3:18:03 PM RT(R) Intra-Procedure 09/02/2020 Danny Waldron RN 3:19:05 PM Intra-Procedure 09/02/2020 Dominick Monaco 3:19:27 PM Miguel A [facility] [address] [place] [address]
[2020-09-01 20:44] LABS: BASOPHILS 0.2 % (0-2); EOSINOPHILS 2.4 % (0-7); HEMOGLOBIN 12.9 g/dL (13.5-17.5); IMMATURE GRANULOCYTES 0.2 % (0-5); LYMPHOCYTE ABS# 2.67 10x3/uL (1.32-3.57); LYMPHOCYTES 31.4 % (15-50); MCH 33.6 pg (26.0-34.0); MCHC 33.9 g/dL (31.0-37.0); MEAN PLATELET VOLUME 8.5 fL (7.4-10.4); MONOCYTES 8.6 % (2-11); NEUTROPHIL ABS# 4.86 10x3/uL (1.78-5.38); NEUTROPHILS 57.2 % (40-80); PLATELET COUNT 252 10x3/uL (130-400); RBC 3.84 10x6/uL (4.20-6.10); RDW 13.3 % (11.5-14.5); WBC 8.5 10x3/uL (4.8-10.8)
[2020-09-01 20:51] LABS: CALC OSMOLALITY 273 mosm/kg (275-300); CALCIUM 8.5 mg/dL (8.5-10.1); CHLORIDE - SERUM 100 mmol/L (98-107); CREATININE - SERUM 1.6 mg/dL (0.6-1.3); GLUCOSE 112 mg/dL (74-106); POTASSIUM - SERUM 4.4 mmol/L (3.5-5.1); SODIUM 135 mmol/L (136-145); UREA NITROGEN 21 mg/dL (7-18); eGFR NON AFRICAN AMERICAN 46 mL/min (90-120)
[2020-09-01 21:00] VITALS: BP 100/61
[2020-09-01 21:05] LABS: ALBUMIN 3.4 g/dL (3.4-5.0); ALKALINE PHOSPHATASE 65 U/L (30-120); ALT (SGPT) 24 U/L (10-68); BILIRUBIN - TOTAL 0.14 mg/dL (0.2-1.3); C-REACTIVE PROTEIN 0.5 mg/dL (0.0-0.9); LIPASE 79 U/L (73-393); MAGNESIUM - SERUM 1.7 mg/dL (1.8-2.4); PRO BNP 46 pg/mL (0-125); PROTEIN - SERUM 6.2 g/dL (6.4-8.2); THYROID STIMULATING HORMONE 2.28 uIU/mL (0.36-3.74); TROPONIN-I < 0.017 ng/mL (0.000-0.060)
[2020-09-01 21:12] LABS: APTT 30.3 SECONDS (22.8-39.4); D-DIMER-QUANTITATIVE < 0.27 ug/mLFEU (0.20-0.54); INR 1.23 (0.85-1.17); PROTIME 14.4 SECONDS (11.6-15.0)
[2020-09-01] MEDS ORDERED: PROTONIX40 MG PO (21:52)
[2020-09-01] MEDS ORDERED: PERCOCET 10-321 EAC1 PO (21:54)
[2020-09-01] MEDS ORDERED: COREG 3.1253.125 MG PO (21:57)
[2020-09-01] MEDS ORDERED: COZAAR50 MG (22:01)
[2020-09-02] VITALS (16 sets, daily range): BP systolic 94–130; BP diastolic 55–68; Ht 160 cm; Wt 60.8 kg
[2020-09-02 07:27] LABS: CREATINE KINASE 82 UL (21-232)
[2020-09-02 07:28] LABS: TROPONIN-I < 0.017 ng/mL (0.000-0.060)
[2020-09-02 08:05] LABS: UDS - AMPHET NEGATIVE QUAL (NEGATIVE); UDS - BARB NEGATIVE QUAL (NEGATIVE); UDS - BENZO NEGATIVE QUAL (NEGATIVE); UDS - COCAINE NEGATIVE QUAL (NEGATIVE); UDS - OPIATE POSITIVE QUAL (NEGATIVE); UDS - PCP NEGATIVE QUAL (NEGATIVE); UDS - THC POSITIVE QUAL (NEGATIVE)
[2020-09-02 08:45] LABS: BASOPHILS 0.3 % (0-2); EOSINOPHILS 3.4 % (0-7); HEMATOCRIT 39.5 % (42.0-54.0); HEMOGLOBIN 13.3 g/dL (13.5-17.5); IMMATURE GRANULOCYTES 0.4 % (0-5); LYMPHOCYTE ABS# 2.36 10x3/uL (1.32-3.57); LYMPHOCYTES 32.4 % (15-50); MCH 33.1 pg (26.0-34.0); MCHC 33.7 g/dL (31.0-37.0); MCV 98.3 fL (80.0-100.0); MEAN PLATELET VOLUME 8.7 fL (7.4-10.4); MONOCYTES 11.2 % (2-11); NEUTROPHIL ABS# 3.81 10x3/uL (1.78-5.38); NEUTROPHILS 52.3 % (40-80); PLATELET COUNT 259 10x3/uL (130-400); RBC 4.02 10x6/uL (4.20-6.10); RDW 13.2 % (11.5-14.5); WBC 7.3 10x3/uL (4.8-10.8)
[2020-09-02 08:49] LABS: ANION GAP 10.3 mmol/L (8-16); CALCIUM 8.9 mg/dL (8.5-10.1); CARBON DIOXIDE 29.8 mmol/L (21.0-32.0); CREATININE - SERUM 1.2 mg/dL (0.6-1.3); POTASSIUM - SERUM 4.1 mmol/L (3.5-5.1)
[2020-09-02 08:55] LABS: ALBUMIN 3.2 g/dL (3.4-5.0); BILIRUBIN - TOTAL 0.16 mg/dL (0.2-1.3); CHOL - HDL RATIO 2.9 ratio (2.3-4.9); LDL-HDL RATIO 1.4 ratio (1.5-3.5); PROTEIN - SERUM 6.2 g/dL (6.4-8.2)
--- NOTE | 2020-09-02 10:37 | NUR ---
PATIENT SITTING HIGH FOWLERS AAOX4, RESP EVEN AND NON LABORED, NO S/S OF DISTRESS, MEDICATIONS ADMINISTERED WITH NO COMPLICATIONS, NO FURTHER NEEDS AT THIS TIME, CLIR, BLP
--- NOTE | 2020-09-02 22:00 | NUR ---
MEDS PASSED. ASSESSMENT COMPLETE. NO S/S OF DISTRESS. INCISION SITE TO R GROIN C/D/I. CLIR. WILL CONT TO MONITOR.
--- NOTE | 2020-09-03 00:05 | NUR ---
SHOWERED AND AWAKE IN ROOM. NO S/S OF DISTRESS. AAOX4. REQUESTING MORPINE. WILL CONT TO MONITOR.
[2020-09-03 04:00] VITALS: BP 100/65
[2020-09-03 05:34] LABS: BASOPHILS 0.2 % (0-2); EOSINOPHILS 2.7 % (0-7); HEMATOCRIT 39.3 % (42.0-54.0); HEMOGLOBIN 13.1 g/dL (13.5-17.5); IMMATURE GRANULOCYTES 0.2 % (0-5); LYMPHOCYTE ABS# 2.62 10x3/uL (1.32-3.57); LYMPHOCYTES 29.4 % (15-50); MCH 32.8 pg (26.0-34.0); MCHC 33.3 g/dL (31.0-37.0); MCV 98.5 fL (80.0-100.0); MEAN PLATELET VOLUME 8.8 fL (7.4-10.4); MONOCYTES 8.4 % (2-11); NEUTROPHIL ABS# 5.26 10x3/uL (1.78-5.38); NEUTROPHILS 59.1 % (40-80); PLATELET COUNT 267 10x3/uL (130-400); RBC 3.99 10x6/uL (4.20-6.10); RDW 13.2 % (11.5-14.5); WBC 8.9 10x3/uL (4.8-10.8)
[2020-09-03 05:42] LABS: ALBUMIN 3.2 g/dL (3.4-5.0); ALKALINE PHOSPHATASE 62 U/L (30-120); ALT (SGPT) 17 U/L (10-68); BILIRUBIN - TOTAL 0.14 mg/dL (0.2-1.3); CALC OSMOLALITY 276 mosm/kg (275-300); CALCIUM 8.5 mg/dL (8.5-10.1); CARBON DIOXIDE 30.4 mmol/L (21.0-32.0); CHLORIDE - SERUM 105 mmol/L (98-107); GLUCOSE 89 mg/dL (74-106); MAGNESIUM - SERUM 1.8 mg/dL (1.8-2.4); POTASSIUM - SERUM 4.2 mmol/L (3.5-5.1); PROTEIN - SERUM 6.2 g/dL (6.4-8.2); SODIUM 138 mmol/L (136-145); UREA NITROGEN 18 mg/dL (7-18); eGFR NON AFRICAN AMERICAN 80 mL/min (90-120)
[2020-09-03 08:25] VITALS: BP 106/58
[2020-09-03] MEDS ORDERED: AZITHROMYCIN500 MG PO (08:34)
--- NOTE | 2020-09-03 09:04 | NUR ---
PATIENT AAOX4 SITTING ON SIDE OF BED EATING BREAKFAST 100%, RESP EVEN AND NON LABORED, NO S/S OF DISTRESS, MEDICATIONS ADMINISTERED WITH NO COMPLICATIONS, DISCHARGE DISCUSSED WITH PATIENT AND AFTER IV ANTIBIOTICS PATIENT WILL D/C, NO FURTHER NEEDS AT THIS TIME, BEN QUEZADA
[2020-09-03 11:35] VITALS: BP 99/49
--- NOTE | 2020-09-04 16:04 | MORECARE ---
CASE MANAGEMENT DISCHARGE SUMMARY PATIENT: JAMES FELTON UNIT: [id number] ADM DATE: 09/01/20 AGE: 65 : 55 SEX: M ROOM/BED: D.2106 AUTHOR: BRYNN,DOC PHYSICIAN: REFERRING PHYSICIAN: PATRICK MURO MD DATE OF SERVICE: 09/04/20 Case Management Discharge Planning Summary CT Patient Name: JAMES FELTON Attending MD : DEZ MURO, Medical Record: [id number] Encounter : [id number] Facility : [address] [place] [address] Admission Date : 121:01 Center Discharge Date : 09/03/[address] [place] [id number] Date of : DC Plan ID : [id number] Age/Sex/Martia : 65/ M/M Printed on : 09/04/20 16:03 CT DCP Review Details Anticipated D/C: Expected LOS : 0 Case Status : COMPLET - Initial Reviewe: [id number] - Amanda Garcia Initial Review: 09/01/2020 Planned Disposi: - Final Discharge: - Home or Self Care (Routine Discharge) Final Reviewer : STARLA : Amanda Garcia Final Review : 09/04/2020 DCP Focus Questions & Answers [facility] JAMES FELTON MR#: [id number] /Age/Sex/Tlllft11-Kyo-41 /65/M /M Attending Physician Name: JINA [id number] Patient Account:[id number] [facility] Page -1 of 1 All edits/amendments must be made on the electronic document DICTATION DATE: 09/04/20 1602 PAVING RAMMER: DM 09/04/20 1602 RPT#: [id number] DC DATE:09/03/20 STATUS: DIS IN [address] [address] END OF REPORT
== END 2020-09-03 13:30 | disposition home or self-care (01) ==
LOC: D.ER 20:19 → D.M2 21:01 → OBSVTIME 21:02 → D.M2 09-03 13:30
PROVIDERS: Family Medicine; ADMIT Family Medicine; ATTEND Family Medicine
DX: I25.110 Atherosclerotic heart disease of native coronary artery with unstable angina pectoris (principal); R07.9 Chest pain, unspecified; I10 Essential (primary) hypertension; Z86.73 Personal history of transient ischemic attack (TIA), and cerebral infarction without residual deficits; J44.9 Chronic obstructive pulmonary disease, unspecified; K21.9 Gastro-esophageal reflux disease without esophagitis; D64.9 Anemia, unspecified; J18.9 Pneumonia, unspecified organism; N17.9 Acute kidney failure, unspecified; F17.203 Nicotine dependence unspecified, with withdrawal; E83.42 Hypomagnesemia; E87.1 Hypo-osmolality and hyponatremia; I50.30 Unspecified diastolic (congestive) heart failure

== ENCOUNTER 2020-09-04 04:59 | Emergency (ER) | payer MEDICARE, MEDICAID ==
[~2020-09-04] VITALS: Ht 160 cm; Wt 61.2 kg
[~2020-09-04 04:59] MED LIST changes: +AZITHROMYCIN500 MG PO; +COREG 3.1253.125 MG PO; +COZAAR50 MG; +PERCOCET 10-321 EAC1 PO; +PROTONIX40 MG PO
[2020-09-04 05:01] VITALS: Ht 160 cm; Wt 61.2 kg
[2020-09-04 05:30] LABS: BASOPHILS 0.1 % (0-2); EOSINOPHILS 3.1 % (0-7); HEMATOCRIT 39.6 % (42.0-54.0); HEMOGLOBIN 13.3 g/dL (13.5-17.5); IMMATURE GRANULOCYTES 0.1 % (0-5); LYMPHOCYTE ABS# 2.29 10x3/uL (1.32-3.57); LYMPHOCYTES 28.8 % (15-50); MCH 33.1 pg (26.0-34.0); MCHC 33.6 g/dL (31.0-37.0); MCV 98.5 fL (80.0-100.0); MEAN PLATELET VOLUME 8.5 fL (7.4-10.4); MONOCYTES 10.9 % (2-11); NEUTROPHIL ABS# 4.52 10x3/uL (1.78-5.38); PLATELET COUNT 239 10x3/uL (130-400); RBC 4.02 10x6/uL (4.20-6.10); RDW 13.2 % (11.5-14.5)
[2020-09-04 05:53] LABS: CALC OSMOLALITY 278 mosm/kg (275-300); CALCIUM 8.9 mg/dL (8.5-10.1); CARBON DIOXIDE 31.1 mmol/L (21.0-32.0); CHLORIDE - SERUM 102 mmol/L (98-107); CREATININE - SERUM 1.1 mg/dL (0.6-1.3); GLUCOSE 97 mg/dL (74-106); POTASSIUM - SERUM 3.9 mmol/L (3.5-5.1); SODIUM 138 mmol/L (136-145); UREA NITROGEN 20 mg/dL (7-18); eGFR NON AFRICAN AMERICAN 71 mL/min (90-120)
[2020-09-04 06:08] LABS: ALBUMIN 3.4 g/dL (3.4-5.0); ALKALINE PHOSPHATASE 65 U/L (30-120); ALT (SGPT) 17 U/L (10-68); CKMB 1.7 U/L (0.0-3.6); CREATINE KINASE 118 UL (21-232); PRO BNP 149 pg/mL (0-125); PROTEIN - SERUM 6.6 g/dL (6.4-8.2); TROPONIN-I < 0.017 ng/mL (0.000-0.060)
[2020-09-04 06:59] VITALS: BP 132/72
== END 2020-09-04 06:45 | disposition home or self-care (01) ==
LOC: D.ER 04:59
PROVIDERS: Family Medicine
DX: R06.00 Dyspnea, unspecified (principal); M75.102 Unspecified rotator cuff tear or rupture of left shoulder, not specified as traumatic; J44.9 Chronic obstructive pulmonary disease, unspecified; Z86.73 Personal history of transient ischemic attack (TIA), and cerebral infarction without residual deficits; K21.9 Gastro-esophageal reflux disease without esophagitis; Z72.0 Tobacco use